=== PATIENT | female | born 1950 | race African-American/Black ===

== ENCOUNTER 2017-03-14 09:21 | Inpatient (IN) | payer MEDICARE, OTHER ==
[~2017-03-14] VITALS: Ht 162.6 cm; Wt 78.9 kg
[~2017-03-14 09:21] MED LIST: BENA5TAB2 PO; ONDA4TAB8 SL
[2017-03-14] MEDS ORDERED: LABETALOL HCL 100 MG/20 ML VIAL IV ONE ×3 (09:45→11:45)
[2017-03-14] MEDS ORDERED: ONDANSETRON 4 MG/2 ML VIAL IV ONE ×2 (09:45→10:45)
[2017-03-14] MEDS ORDERED: IV NORMAL SALINE 1000 ML BAG IV ONE (09:45)
[2017-03-14] MEDS ORDERED: LABETALOL 20 MG/4 ML VIAL IV ONE ×3 (09:49→11:45)
[2017-03-14] MEDS ORDERED: ONDANSETRON 4 MG/2 ML VIAL ONE ×2 (09:50→10:42)
[2017-03-14] MEDS ORDERED: hydrALAZINE HCL 20 MG/1 ML VIAL IV ONE ×2 (10:00→10:45)
[2017-03-14 10:07] LABS: BASOPHILS # (AUTO) 0.1 K/uL (0.0-8.0); BASOPHILS % (AUTO) 0.7 % (0.0-2.0); EOSINOPHILS # (AUTO) 0.1 K/uL (0.0-0.7); HEMATOCRIT 49.4 % (37-47); HEMOGLOBIN 16.9 G/DL (12.0-16.0); LYMPHOCYTES # (AUTO) 0.5 K/UL (0.8-4.8); LYMPHOCYTES % (AUTO) 3.3 % (20.5-51.5); MEAN CORPUSCULAR HEMOGLOBIN 31.4 UUG (27.0-31.0); MEAN CORPUSCULAR HGB CONC 34 g/dL (32.0-37.0); MEAN CORPUSCULAR VOLUME 91.9 FL (81.0-99.0); MONOCYTES # (AUTO) 0.1 K/UL (0.1-1.30); MONOCYTES % (AUTO) 0.7 % (0.0-11.0); NEUTROPHILS # (AUTO) 13.8 K/UL (1.8-8.9); NEUTROPHILS % (AUTO) 94.3 % (38.5-71.5); PLATELET COUNT (AUTO) 158 K/UL (150-450); RED BLOOD CELL COUNT(AUTO) 5.38 MIL/UL (4.2-5.4); RED CELL DISTRIBUTION WIDTH 14.3 % (11.5-14.5); WHITE BLOOD COUNT (AUTO) 14.6 K/UL (4.0-11.2)
[2017-03-14] MEDS ORDERED: hydrALAZINE HCL 20 MG/1 ML VIAL ONE ×2 (10:07→10:31)
[2017-03-14 10:13] LABS: CALCIUM 9.6 mg/dL (8.5-10.1); POTASSIUM 3.3 mmol/L (3.5-5.1)
[2017-03-14 10:25] LABS: ALBUMIN 4.7 g/dL (3.4-5.0); BILIRUBIN,DIRECT 0.1 mg/dL (0.0-0.2); BILIRUBIN,TOTAL 0.7 mg/dL (0.2-1.0); TOTAL PROTEIN, SERUM 8.7 g/dL (6.4-8.2)
[2017-03-14] MEDS ORDERED: NORMAL SALINE FLUSH 10 ML DISP.SYRIN ONE (10:56)
[2017-03-14] MEDS ORDERED: IV NORMAL SALINE 250 ML IV ONE (10:57)
[2017-03-14] MEDS ORDERED: IOHEXOL 350 100 ML INFUS..BTL ONE (10:57)
[2017-03-14] MEDS ORDERED: METOCLOPRAMIDE HCL 10 MG/2 ML VIAL IV ONE (11:00)
[2017-03-14] MEDS ORDERED: diphenhydrAMINE 50 MG/1 ML VIAL IV ONE (11:00)
[2017-03-14] MEDS ORDERED: diphenhydrAMINE 50 MG/1 ML VIAL ONE (11:00)
[2017-03-14] MEDS ORDERED: METOCLOPRAMIDE HCL 10 MG/2 ML VIAL ONE (11:00)
[2017-03-14 11:06] LABS: LYMPHOCYTES % (MANUAL) 3 % (20-40); MONOCYTES % (MANUAL) 2 % (2-10); NEUTROPHILS % (MANUAL) 95 % (42-75)
[2017-03-14 11:29] LABS: PLATELET ESTIMATE ADEQUATE
[2017-03-14 13:32] VITALS: BP 144/93
[2017-03-14] MEDS ORDERED: MORPHINE SULFATE 2 MG/1 ML DISP.SYRIN IV PRN (14:00)
[2017-03-14] MEDS ORDERED: ACETAMINOPHEN 650 MG SUPP.RECT RC PRN (14:00)
[2017-03-14] MEDS: METOPROLOL TARTRATE 25 MG TABLET PO SCH ×2 (14:42→20:53)
[2017-03-14] MEDS: CEFTRIAXONE 1 G in IV DEXTROSE 5% 50 ML IV SCH (14:43)
[2017-03-14 15:37] VITALS: BP 150/97
[2017-03-14 17:34] LABS: *BILIRUBIN,URIN NEGATIVE (NEGATIVE); *BLOOD, URINE Trace-lysed (NEGATIVE); *COLOR,URINE YELLOW (YELLOW); *KETONES,URINE TRACE (NEGATIVE); *PROTEIN,URINE 2+ (NEGATIVE); *UROBILINOGEN,URINE 0.2 E.U./dl (NORMAL); LEUKOCYTE ESTERASE ,URINE NEGATIVE (NEGATIVE); NITRITE, URINE NEGATIVE (NEGATIVE); UGLUCOSE NEGATIVE (NEGATIVE)
[2017-03-14 17:48] LABS: *CLARITY,URINE HAZY (CLEAR)
[2017-03-14 17:50] LABS: BACTERIA,URINE FEW /HPF (NONE SEEN); MUCUS,URINE FEW /LPF (0-FEW); SQUAMOUS EPITHELIAL CELL,UR MANY /HPF (NONE SEEN); WBC,URINE 0-3 /HPF (0-3)
[2017-03-14 19:00] VITALS: BP 148/92
[2017-03-14] MEDS: ZOLPIDEM 5 MG TABLET PO PRN (23:23)
[2017-03-14] MEDS ORDERED: ZOLPIDEM 5 MG TABLET ONE (23:32)
[2017-03-15] VITALS (8 sets, daily range): BP systolic 146–173; BP diastolic 88–104
[2017-03-15] MEDS: POTASSIUM CHLORIDE 20 MEQ in IV 1/2NS 1000 ML 1,000 ML IV PRN ×2 (01:48→21:15)
[2017-03-15] MEDS: ONDANSETRON 4 MG/2 ML VIAL IV PRN ×2 (03:22→23:23)
[2017-03-15] MEDS: LISINOPRIL 20 MG TABLET PO SCH ×2 (05:43→08:03)
[2017-03-15] MEDS ORDERED: LISINOPRIL 20 MG TABLET ONE (05:53)
[2017-03-15 06:55] LABS: ALBUMIN 3.8 g/dL (3.4-5.0); BILIRUBIN,TOTAL 0.6 mg/dL (0.2-1.0); CALCIUM 8.7 mg/dL (8.5-10.1); MAGNESIUM 2.1 mg/dL (1.8-2.4); PHOSPHOROUS 2.6 mg/dL (2.5-4.9); POTASSIUM 3.3 mmol/L (3.5-5.1); THYROID STIMULATING HORMONE 0.923 mIU/mL (0.358-3.740); TOTAL PROTEIN, SERUM 7.3 g/dL (6.4-8.2)
[2017-03-15 07:07] LABS: BASOPHILS % (AUTO) 0.1 % (0.0-2.0); EOSINOPHILS % (AUTO) 0.2 % (0.0-7.0); HEMATOCRIT 46.3 % (37-47); HEMOGLOBIN 15.8 G/DL (12.0-16.0); LYMPHOCYTES # (AUTO) 0.9 K/UL (0.8-4.8); LYMPHOCYTES % (AUTO) 6.9 % (20.5-51.5); MEAN CORPUSCULAR HEMOGLOBIN 31.4 UUG (27.0-31.0); MEAN CORPUSCULAR HGB CONC 34 g/dL (32.0-37.0); MONOCYTES # (AUTO) 0.6 K/UL (0.1-1.30); MONOCYTES % (AUTO) 4.4 % (0.0-11.0); NEUTROPHILS % (AUTO) 88.4 % (38.5-71.5); PLATELET COUNT (AUTO) 144 K/UL (150-450); RED BLOOD CELL COUNT(AUTO) 5.03 MIL/UL (4.2-5.4); RED CELL DISTRIBUTION WIDTH 14.8 % (11.5-14.5); WHITE BLOOD COUNT (AUTO) 13.5 K/UL (4.0-11.2)
[2017-03-15] MEDS: PANTOPRAZOLE SODIUM 40 MG VIAL IV SCH (07:33)
[2017-03-15] MEDS: METOPROLOL TARTRATE 25 MG TABLET PO SCH (08:02)
[2017-03-15] MEDS: AMLODIPINE 5 MG TABLET PO SCH ×2 (10:32→20:25)
[2017-03-15] MEDS: CEFTRIAXONE 1 G in IV DEXTROSE 5% 50 ML IV SCH (13:25)
[2017-03-15] MEDS: hydrALAZINE HCL 25 MG TABLET PO PRN (15:18)
[2017-03-15] MEDS: CARVEDILOL 6.25 MG TABLET PO SCH (17:13)
[2017-03-15] MEDS: ACETAMINOPHEN 325 MG TABLET PO PRN (20:22)
[2017-03-15] MEDS: ZOLPIDEM 5 MG TABLET PO PRN (20:24)
[2017-03-16] MEDS: ONDANSETRON 4 MG/2 ML VIAL IV PRN ×2 (04:29→13:51)
[2017-03-16 05:00] VITALS: BP 161/99
[2017-03-16] MEDS: hydrALAZINE HCL 25 MG TABLET PO PRN ×2 (05:13→15:04)
[2017-03-16] MEDS: PANTOPRAZOLE SODIUM 40 MG VIAL IV SCH (06:15)
[2017-03-16 06:56] LABS: CALCIUM 8.5 mg/dL (8.5-10.1); CREATININE 0.9 mg/dL (0.6-1.3); MAGNESIUM 1.9 mg/dL (1.8-2.4); PHOSPHOROUS 1.9 mg/dL (2.5-4.9); POTASSIUM 3.1 mmol/L (3.5-5.1)
[2017-03-16 07:22] LABS: BASOPHILS % (AUTO) 0.2 % (0.0-2.0); EOSINOPHILS # (AUTO) 0.1 K/uL (0.0-0.7); EOSINOPHILS % (AUTO) 0.6 % (0.0-7.0); HEMATOCRIT 46.3 % (37-47); HEMOGLOBIN 15.8 G/DL (12.0-16.0); LYMPHOCYTES # (AUTO) 1.2 K/UL (0.8-4.8); LYMPHOCYTES % (AUTO) 11.1 % (20.5-51.5); MEAN CORPUSCULAR HEMOGLOBIN 31.5 UUG (27.0-31.0); MEAN CORPUSCULAR HGB CONC 34 g/dL (32.0-37.0); MEAN CORPUSCULAR VOLUME 92.4 FL (81.0-99.0); MONOCYTES # (AUTO) 0.6 K/UL (0.1-1.30); MONOCYTES % (AUTO) 5.4 % (0.0-11.0); NEUTROPHILS # (AUTO) 8.9 K/UL (1.8-8.9); NEUTROPHILS % (AUTO) 82.7 % (38.5-71.5); PLATELET COUNT (AUTO) 146 K/UL (150-450); RED BLOOD CELL COUNT(AUTO) 5.01 MIL/UL (4.2-5.4); RED CELL DISTRIBUTION WIDTH 14.4 % (11.5-14.5); WHITE BLOOD COUNT (AUTO) 10.8 K/UL (4.0-11.2)
[2017-03-16] MEDS: CARVEDILOL 6.25 MG TABLET PO SCH ×2 (07:54→17:08)
[2017-03-16] MEDS: AMLODIPINE 5 MG TABLET PO SCH ×2 (08:02→21:19)
[2017-03-16] MEDS: LISINOPRIL 20 MG TABLET PO SCH (08:02)
[2017-03-16] MEDS: ACETAMINOPHEN 325 MG TABLET PO PRN (09:36)
[2017-03-16 11:12] VITALS: BP 135/75
[2017-03-16] MEDS: POTASSIUM CHLORIDE 20 MEQ in IV 1/2NS 1000 ML 1,000 ML IV PRN (11:59)
[2017-03-16] MEDS: CEFTRIAXONE 1 G in IV DEXTROSE 5% 50 ML IV SCH (13:44)
[2017-03-16 14:55] VITALS: BP 166/103
[2017-03-16] MEDS ORDERED: NEUTRA PHOS PACKET PO ONE (15:15)
[2017-03-16 15:30] VITALS: BP 165/103
[2017-03-16] MEDS ORDERED: CLONIDINE-TTS 1 PATCH TD SCH (16:00)
[2017-03-16] MEDS: POTASSIUM PHOSPHATE MM 7.5 MMOL in IV DEXTROSE 5% 100 ML IV SCH ×2 (16:44→20:04)
[2017-03-16 20:00] VITALS: BP 139/86
[2017-03-16] MEDS: ZOLPIDEM 5 MG TABLET PO PRN (21:21)
[2017-03-17 04:00] VITALS: BP 108/72
[2017-03-17] MEDS: PANTOPRAZOLE SODIUM 40 MG VIAL IV SCH (06:20)
[2017-03-17] MEDS: POTASSIUM CHLORIDE 20 MEQ in IV 1/2NS 1000 ML 1,000 ML IV PRN (06:20)
[2017-03-17 06:40] LABS: CALCIUM 8.4 mg/dL (8.5-10.1); CREATININE 1.2 mg/dL (0.6-1.3); MAGNESIUM 1.9 mg/dL (1.8-2.4); PHOSPHOROUS 4.2 mg/dL (2.5-4.9); POTASSIUM 3.5 mmol/L (3.5-5.1)
[2017-03-17 06:55] LABS: BASOPHILS % (AUTO) 0.2 % (0.0-2.0); EOSINOPHILS % (AUTO) 0.3 % (0.0-7.0); HEMATOCRIT 44.6 % (37-47); HEMOGLOBIN 14.7 G/DL (12.0-16.0); LYMPHOCYTES # (AUTO) 1.5 K/UL (0.8-4.8); LYMPHOCYTES % (AUTO) 18.7 % (20.5-51.5); MEAN CORPUSCULAR HEMOGLOBIN 30.1 UUG (27.0-31.0); MEAN CORPUSCULAR HGB CONC 33 g/dL (32.0-37.0); MEAN CORPUSCULAR VOLUME 91.3 FL (81.0-99.0); MONOCYTES # (AUTO) 0.6 K/UL (0.1-1.30); NEUTROPHILS % (AUTO) 72.8 % (38.5-71.5); PLATELET COUNT (AUTO) 121 K/UL (150-450); RED BLOOD CELL COUNT(AUTO) 4.88 MIL/UL (4.2-5.4); RED CELL DISTRIBUTION WIDTH 14.1 % (11.5-14.5); WHITE BLOOD COUNT (AUTO) 8.1 K/UL (4.0-11.2)
[2017-03-17] MEDS ORDERED: CARVEDILOL 6.25 MG TABLET PO SCH (08:00)
[2017-03-17] MEDS: CARVEDILOL 12.5 MG TABLET PO SCH ×2 (08:00→17:00)
[2017-03-17] MEDS: AMLODIPINE 5 MG TABLET PO SCH (08:27)
[2017-03-17] MEDS: LISINOPRIL 20 MG TABLET PO SCH (08:27)
[2017-03-17 12:09] VITALS: BP 114/66
[2017-03-17] MEDS: CEFTRIAXONE 1 G in IV DEXTROSE 5% 50 ML IV SCH (13:26)
[2017-03-17 16:12] VITALS: BP 91/61
[2017-03-17] MEDS ORDERED: ACIDOPHILUS/BULGARICUS CHEW TAB PO SCH (16:45)
[2017-03-17 17:00] VITALS: BP 91/61
[2017-03-17] MEDS ORDERED: LISI-603 PO (17:10)
[2017-03-17] MEDS ORDERED: PANT40TA2 PO (17:10)
[2017-03-17] MEDS ORDERED: Acetaminophen PO (17:10)
[2017-03-17] MEDS ORDERED: ACID1TAB4 PO (17:10)
[2017-03-18] MEDS ORDERED: PANTOPRAZOLE SODIUM 40 MG TABLET.DR PO SCH (07:00)
== END 2017-03-17 18:59 | disposition home or self-care (01) | DRG 392 ==
LOC: ER 09:22 → TELE 12:46 → MED 03-15 11:02
PROVIDERS: ADMIT Internal Medicine; ATTEND Internal Medicine
DX: A08.4 Viral intestinal infection, unspecified (principal); I16.0 Hypertensive urgency; E78.5 Hyperlipidemia, unspecified; E66.9 Obesity, unspecified; Z68.29 Body mass index [BMI] 29.0-29.9, adult; Z82.49 Family history of ischemic heart disease and other diseases of the circulatory system; E87.6 Hypokalemia; K57.30 Diverticulosis of large intestine without perforation or abscess without bleeding; K76.89 Other specified diseases of liver; N20.0 Calculus of kidney; D25.9 Leiomyoma of uterus, unspecified; R73.9 Hyperglycemia, unspecified
CPT/HCPCS: 36415; 70030-TC; 71010; 83690; 83735; 84100; 84443; 85025; 85730; 87086; 93005; A4663; C9113; J0360; J0696; J1200; J2405; J2765; J3480; J3490; J7040; J7050; J7060; Q9967

== ENCOUNTER 2017-07-07 14:48 | Inpatient (IN) | payer MEDICARE ==
[~2017-07-07] VITALS: Ht 162.6 cm; Wt 80.7 kg
[~2017-07-07 14:48] MED LIST changes: +ACID1TAB4 PO; +Acetaminophen PO; -BENA5TAB2 PO; +LISI-603 PO; +PANT40TA2 PO
[2017-07-07] MEDS ORDERED: METO10TA3 PO (15:15)
[2017-07-07] MEDS ORDERED: NAPROXEN 500 MG PO (15:15)
[2017-07-07] MEDS ORDERED: TRAMADOL HCL TAB 50MG PO (15:15)
[2017-07-07] MEDS ORDERED: AMLODIPINE TAB 5MG PO (15:15)
[2017-07-07] MEDS ORDERED: LABETALOL HCL 100 MG/20 ML VIAL IV ONE ×3 (15:30→19:30)
[2017-07-07] MEDS ORDERED: ONDANSETRON 4 MG/2 ML VIAL IV ONE (15:30)
[2017-07-07] MEDS ORDERED: ONDANSETRON 4 MG/2 ML VIAL ONE ×3 (15:44→19:53)
[2017-07-07] MEDS ORDERED: LABETALOL HCL 100 MG/20 ML VIAL ONE (15:44)
[2017-07-07] MEDS ORDERED: PANTOPRAZOLE SODIUM 40 MG VIAL IV ONE (15:45)
[2017-07-07] MEDS ORDERED: PANTOPRAZOLE SODIUM 40 MG VIAL ONE (15:52)
[2017-07-07 16:00] LABS: BASOPHILS % (AUTO) 0.1 % (0.0-2.0); EOSINOPHILS % (AUTO) 0.1 % (0.0-7.0); HEMATOCRIT 49.3 % (37-47); LYMPHOCYTES # (AUTO) 0.4 K/UL (0.8-4.8); LYMPHOCYTES % (AUTO) 2.3 % (20.5-51.5); MEAN CORPUSCULAR HEMOGLOBIN 30.6 UUG (27.0-31.0); MEAN CORPUSCULAR HGB CONC 32 g/dL (32.0-37.0); MEAN CORPUSCULAR VOLUME 94.5 FL (81.0-99.0); MONOCYTES # (AUTO) 0.1 K/UL (0.1-1.30); MONOCYTES % (AUTO) 0.8 % (0.0-11.0); NEUTROPHILS # (AUTO) 16.1 K/UL (1.8-8.9); NEUTROPHILS % (AUTO) 96.7 % (38.5-71.5); PLATELET COUNT (AUTO) 187 K/UL (150-450); RED BLOOD CELL COUNT(AUTO) 5.21 MIL/UL (4.2-5.4); WHITE BLOOD COUNT (AUTO) 16.6 K/UL (4.0-11.2)
[2017-07-07] MEDS ORDERED: METOCLOPRAMIDE HCL 10 MG/2 ML VIAL IV ONE (16:00)
[2017-07-07] MEDS ORDERED: diphenhydrAMINE 50 MG/1 ML VIAL IV ONE (16:00)
[2017-07-07 16:01] LABS: POTASSIUM 3.1 mmol/L (3.5-5.1)
[2017-07-07 16:14] LABS: BILIRUBIN,DIRECT 0.1 mg/dL (0.0-0.2); BILIRUBIN,TOTAL 0.5 mg/dL (0.2-1.0); TOTAL PROTEIN, SERUM 8.8 g/dL (6.4-8.2)
[2017-07-07] MEDS ORDERED: hydrALAZINE HCL 20 MG/1 ML VIAL IV ONE ×2 (16:15→16:30)
[2017-07-07] MEDS ORDERED: NITROGLYCERIN OINT 1 GM PACKET TP ONE ×2 (16:15→16:32)
[2017-07-07] MEDS ORDERED: hydrALAZINE HCL 20 MG/1 ML VIAL ONE ×2 (16:21→16:36)
[2017-07-07] MEDS ORDERED: MORPHINE SULFATE 4 MG/1 ML DISP.SYRIN IV ONE (16:45)
[2017-07-07] MEDS ORDERED: MORPHINE SULFATE 4 MG/1 ML DISP.SYRIN ONE (16:54)
[2017-07-07] MEDS ORDERED: IV 1/2NS 1000 ML 1,000 ML IV PRN (18:21)
[2017-07-07] MEDS ORDERED: hydrALAZINE HCL 20 MG/1 ML VIAL IV PRN (18:30)
[2017-07-07] MEDS ORDERED: ONDANSETRON 4 MG/2 ML VIAL IV PRN (18:30)
[2017-07-07] MEDS ORDERED: HYDROCODONE/APAP 5-325MG TABLET PO PRN (18:30)
[2017-07-07] MEDS ORDERED: MAGNESIUM HYDROXIDE 30 ML LIQUID UDC PO PRN (18:30)
[2017-07-07] MEDS ORDERED: ENOXAPARIN SODIUM 40 MG/0.4 ML DISP.SYRIN SQ SCH (18:30)
[2017-07-07] MEDS ORDERED: ACETAMINOPHEN 325 MG TABLET PO PRN (18:30)
[2017-07-07] MEDS ORDERED: Z GUARD REMEDY PASTE 57 GM TUBE TOP PRN (18:30)
[2017-07-07] MEDS ORDERED: IOHEXOL 300MG/ML 100 ML INFUS..BTL ONE (18:32)
[2017-07-07] MEDS ORDERED: NORMAL SALINE FLUSH 10 ML DISP.SYRIN ONE (18:32)
[2017-07-07] MEDS ORDERED: IV NORMAL SALINE 250 ML IV ONE (18:32)
--- NOTE | 2017-07-07 18:36 | NUR ---
dr. aldo jimenez accepted the pt. transfer to floor pending on ct result
--- NOTE | 2017-07-07 19:20 | NUR ---
Received report, assumed care of pt at this time. Admission pending CT results. MD notified of pt's blood pressure, awaiting further orders.
[2017-07-07] MEDS ORDERED: HYDROMORPHONE 1 MG/1 ML DISP.SYRIN IV ONE (19:30)
[2017-07-07] MEDS ORDERED: ONDANSETRON IV *ER 4 MG/2 ML VIAL IV ONE (19:30)
--- NOTE | 2017-07-07 19:45 | NUR ---
Blood pressure improved after pain medication, labetalol held at this time
[2017-07-07] MEDS ORDERED: HYDROMORPHONE 2 MG/1 ML DISP.SYRIN ONE (19:52)
--- NOTE | 2017-07-07 20:12 | NUR ---
Pt downgraded from MEMO to tele admission
--- NOTE | 2017-07-07 20:19 | NUR ---
Report called to SOLO Diaz. Preparing to transfer pt to the floor.
[2017-07-07] MEDS ORDERED: POTASSIUM CHLORIDE 20 MEQ TAB.PRT.SR PO ONE (20:30)
[2017-07-07] MEDS ORDERED: POTASSIUM CHLORIDE 20 MEQ TAB.PRT.SR ONE (20:49)
--- NOTE | 2017-07-07 20:57 | NUR ---
ADMITTED PT FROM ER VIA GURNEY, ALERT & ORIENTED X3. DENIES PAIN THIS TIME. NO NAUSEA/VOMITTING NOTED. HEP LOCK INTACT & PATENT ON RAC. C-SCOPE SR NO ECTOPY. NOT IN ANY DISTRESS.
[2017-07-07 21:00] VITALS: BP 105/61
[2017-07-07] MEDS ORDERED: ENOXAPARIN SODIUM 40 MG/0.4 ML DISP.SYRIN SQ ONE (21:58)
--- NOTE | 2017-07-08 | NUR ---
BP STABLE. DENIES PAIN . NOT IN ANY DISTRESS.
[2017-07-08 00:15] VITALS: BP 109/68
[2017-07-08 01:33] LABS: BASOPHILS % (AUTO) 0.1 % (0.0-2.0); EOSINOPHILS % (AUTO) 0.2 % (0.0-7.0); HEMATOCRIT 41.4 % (37-47); HEMOGLOBIN 13.8 G/DL (12.0-16.0); LYMPHOCYTES # (AUTO) 0.7 K/UL (0.8-4.8); LYMPHOCYTES % (AUTO) 5.5 % (20.5-51.5); MEAN CORPUSCULAR HEMOGLOBIN 31.3 UUG (27.0-31.0); MEAN CORPUSCULAR HGB CONC 33 g/dL (32.0-37.0); MEAN CORPUSCULAR VOLUME 93.7 FL (81.0-99.0); MONOCYTES # (AUTO) 0.5 K/UL (0.1-1.30); MONOCYTES % (AUTO) 4.3 % (0.0-11.0); NEUTROPHILS # (AUTO) 11.2 K/UL (1.8-8.9); NEUTROPHILS % (AUTO) 89.9 % (38.5-71.5); PLATELET COUNT (AUTO) 176 K/UL (150-450); RED BLOOD CELL COUNT(AUTO) 4.42 MIL/UL (4.2-5.4); WHITE BLOOD COUNT (AUTO) 12.4 K/UL (4.0-11.2)
[2017-07-08 02:19] LABS: CREATININE 1.3 mg/dL (0.6-1.3); MAGNESIUM 1.7 mg/dL (1.8-2.4); PHOSPHOROUS 3.4 mg/dL (2.5-4.9); POTASSIUM 3.9 mmol/L (3.5-5.1)
[2017-07-08 02:21] LABS: THYROID STIMULATING HORMONE 0.706 mIU/mL (0.358-3.740)
[2017-07-08 04:00] VITALS: BP 122/72
--- NOTE | 2017-07-08 05:13 | NUR ---
RESTING QUITELY. IV INFUSING WELL.. BP REMAINS STABLE.
[2017-07-08] MEDS ORDERED: PANTOPRAZOLE SODIUM 40 MG TABLET.DR PO SCH (07:00)
--- NOTE | 2017-07-08 08:00 | NUR ---
RECEIVED PATIENT AWAKE ALERT AND ORIENTED DENIES PAIN OR DISCOMFORTS AT THIS TIME.REMAIN ON CLEAR LIQUIDS DIET ORDERED WITH NO NAUSEA OR VOMITING AT THIS TIME.IVF IN PROGRESS ORDERED NOT IN DISTRESS AT THIS TIME.
[2017-07-08] MEDS: CLONIDINE HCL 0.2 MG TABLET PO SCH ×2 (08:25→14:00)
--- NOTE | 2017-07-08 09:50 | NUR ---
PATIENT SEEN AND EXAMINED BY DR SIMPSON WITH ORDER TO ADVANCE DIET TOLERATED.
[2017-07-08] MEDS ORDERED: CLON0.1T PO (10:59)
--- NOTE | 2017-07-08 11:01 | NUR ---
PATIENT SEEN AND EXAMINED BY DR SIMPSON WITH ORDER TO DISCHARGE PATIENT HOME TODAY AND TO FOLLOW UP WITH HER PRIMARY DOCTOR FOR EVALUATION OF HER BLOOD PRESSURE MEDICATIONS.PATIENT AWARE.
[2017-07-08 11:29] VITALS: BP 96/52
[2017-07-08] MEDS ORDERED: MAGNESIUM OXIDE 400 MG TABLET PO ONE (11:30)
[2017-07-08 14:00] VITALS: BP 100/59
--- NOTE | 2017-07-08 15:10 | NUR ---
PATIENT DISCHARGED PICKED UP BY HER SON MARCUS IN SATISFACTORY CONDITION WITH DISCHARGE INSTRUCTIONS AND PRESCRIPTIONS AND PATIENT INSTRUCTED TO CHECK HER BLOOD PRESSURE BEFORE TAKING HER BLOOD PRESSURE MEDICATIONS AND TO NOT TAKE IS SYSTOLIC IS LESS THAN 110 THEN NOTIFY HER DOCTOR.ALSO TO CALL FOR A FOLLOW UP APPOINTMENT WITH HER PRIMARY DOCTOR FOR BETTER REGULATION AND MANAGEMENT OF HER BLOOD PRESSURE MEDICATIONS AND TO RISE SLOWLY TO PREVENT DIZZINESS AND SHE EXPRESSED UNDERSTANDING.
[2017-07-08] MEDS ORDERED: ENOXAPARIN SODIUM 40 MG/0.4 ML DISP.SYRIN SQ SCH (21:00)
== END 2017-07-08 15:10 | disposition home or self-care (01) | DRG 305 ==
LOC: ER 14:48 → TELE 20:13
DX: I10 Essential (primary) hypertension (principal); K76.89 Other specified diseases of liver; E87.6 Hypokalemia; D72.829 Elevated white blood cell count, unspecified; K29.70 Gastritis, unspecified, without bleeding; N20.0 Calculus of kidney; D25.9 Leiomyoma of uterus, unspecified
CPT/HCPCS: 36415; 70030-TC; 71010; 83690; 83735; 84100; 84443; 85025; 85730; 93005; A4663; C9113; J0360; J1170; J1650; J2270; J2405; J3490; J7030; J7050; Q9967

== ENCOUNTER 2017-09-29 06:18 | Emergency (ER) | payer MEDICARE ==
[~2017-09-29] VITALS: Ht 160 cm; Wt 72.6 kg
[~2017-09-29 06:18] MED LIST changes: -ACID1TAB4 PO; +AMLODIPINE TAB 5MG PO; -Acetaminophen PO; +CLON0.1T PO; -LISI-603 PO; -ONDA4TAB8 SL; -PANT40TA2 PO
[2017-09-29 06:43] LABS: BASOPHILS % (AUTO) 0.1 % (0.0-2.0); EOSINOPHILS % (AUTO) 0.1 % (0.0-7.0); HEMOGLOBIN 15.5 G/DL (12.0-16.0); LYMPHOCYTES # (AUTO) 0.6 K/UL (0.8-4.8); LYMPHOCYTES % (AUTO) 6.4 % (20.5-51.5); MEAN CORPUSCULAR HEMOGLOBIN 30.5 UUG (27.0-31.0); MEAN CORPUSCULAR HGB CONC 33 g/dL (32.0-37.0); MEAN CORPUSCULAR VOLUME 92.4 FL (81.0-99.0); MONOCYTES # (AUTO) 0.1 K/UL (0.1-1.30); MONOCYTES % (AUTO) 1.1 % (0.0-11.0); NEUTROPHILS # (AUTO) 9.3 K/UL (1.8-8.9); NEUTROPHILS % (AUTO) 92.3 % (38.5-71.5); PLATELET COUNT (AUTO) 183 K/UL (150-450); RED BLOOD CELL COUNT(AUTO) 5.08 MIL/UL (4.2-5.4)
[2017-09-29] MEDS ORDERED: HYDROMORPHONE 1 MG/1 ML DISP.SYRIN IV ONE (06:45)
[2017-09-29] MEDS ORDERED: IV NORMAL SALINE 1000 ML BAG IV ONE ×2 (06:45)
[2017-09-29] MEDS ORDERED: ONDANSETRON 4 MG/2 ML VIAL IV ONE (06:45)
[2017-09-29] MEDS ORDERED: ONDANSETRON 4 MG/2 ML VIAL ONE (06:46)
[2017-09-29] MEDS ORDERED: AMLO10TA2 PO (06:50)
[2017-09-29] MEDS ORDERED: AMOX500T2 PO (06:50)
[2017-09-29] MEDS ORDERED: HYDROMORPHONE 2 MG/1 ML DISP.SYRIN ONE (06:52)
[2017-09-29 07:01] LABS: BILIRUBIN,DIRECT 0.1 mg/dL (0.0-0.2); BILIRUBIN,TOTAL 0.4 mg/dL (0.2-1.0); CREATININE 0.9 mg/dL (0.6-1.3); TOTAL PROTEIN, SERUM 7.8 g/dL (6.4-8.2)
[2017-09-29 07:04] LABS: POTASSIUM 2.7 mmol/L (3.5-5.1)
[2017-09-29] MEDS ORDERED: POTASSIUM CHLORIDE 20 MEQ TAB.PRT.SR PO ONE (07:15)
[2017-09-29] MEDS ORDERED: POTASSIUM CHLORIDE 20 MEQ TAB.PRT.SR ONE (07:22)
--- NOTE | 2017-09-29 08:20 | NUR ---
Discharge per Dr Holt. "no need for urine." per
--- NOTE | 2017-09-29 08:22 | NUR ---
Patient is AOX4, denies any discomfort, IV fluids are done, pending ride for home at this time. Per patient, "My son will come pick me up." Patient discharged to home in stable conditon. Written and verbal after care instructions given to patient. Patient verbalizes understanding of instructions. IV removed. Catheter intact and site benign. Pressure and 4x4 gauze applied to site. No bleeding noted.
== END 2017-09-29 08:55 | disposition home or self-care (01) ==
LOC: ER 06:26
DX: A08.4 Viral intestinal infection, unspecified (principal); E87.6 Hypokalemia; I10 Essential (primary) hypertension; I70.0 Atherosclerosis of aorta; Z90.49 Acquired absence of other specified parts of digestive tract
CPT/HCPCS: 71010; 80048; 80076; 83690; 84484; 85025; 85730; 93005; 96361; 96374; 96375; 99285; A4663; J1170; J2405; J7030 ×2; 70030-TC

== ENCOUNTER 2017-10-17 13:17 | Emergency (ER) | payer MEDICARE ==
[~2017-10-17] VITALS: Ht 160 cm; Wt 73.9 kg
[~2017-10-17 13:17] MED LIST changes: +AMLO10TA2 PO; -AMLODIPINE TAB 5MG PO; +AMOX500T2 PO; -CLON0.1T PO
[2017-10-17] MEDS: IV NORMAL SALINE 1000 ML BAG IV ONE (13:37)
[2017-10-17] MEDS: ONDANSETRON 4 MG/2 ML VIAL IV ONE ×3 (13:37→17:21)
[2017-10-17] MEDS ORDERED: ONDANSETRON 4 MG/2 ML VIAL ONE ×3 (13:41→17:34)
[2017-10-17 13:42] LABS: BASOPHILS % (AUTO) 0.2 % (0.0-2.0); EOSINOPHILS % (AUTO) 0.1 % (0.0-7.0); HEMATOCRIT 46.2 % (31.2-41.9); HEMOGLOBIN 15.5 g/dL (10.9-14.3); LYMPHOCYTES # (AUTO) 0.4 K/uL (20.0-40.0); LYMPHOCYTES % (AUTO) 2.4 % (20.5-51.5); MEAN CORPUSCULAR HEMOGLOBIN 31.4 uug (24.7-32.8); MEAN CORPUSCULAR HGB CONC 34 g/dL (32.3-35.6); MEAN CORPUSCULAR VOLUME 93.5 fL (75.5-95.3); MONOCYTES # (AUTO) 0.3 K/uL (2.0-10.0); MONOCYTES % (AUTO) 2.2 % (0.0-11.0); NEUTROPHILS # (AUTO) 15.1 K/uL (1.8-8.9); NEUTROPHILS % (AUTO) 95.1 % (38.5-71.5); PLATELET COUNT (AUTO) 193 K/uL (179-408); RED BLOOD CELL COUNT(AUTO) 4.94 MIL/uL (3.63-4.92); WHITE BLOOD COUNT (AUTO) 15.8 K/uL (3.8-11.8)
--- NOTE | 2017-10-17 13:44 | NUR ---
Pt presents to ED with a c/o elevated blood pressure today. Pt denies YEBOAH. denies blurred vision. No neuro deficit noted. pt also states that she had several vomiting episodes.
[2017-10-17 13:52] LABS: CREATININE 1.1 mg/dL (0.6-1.3); POTASSIUM 3.3 mmol/L (3.5-5.1)
[2017-10-17 13:57] LABS: BILIRUBIN,DIRECT 0.1 mg/dL (0.0-0.2); BILIRUBIN,TOTAL 0.6 mg/dL (0.2-1.0); TOTAL PROTEIN, SERUM 8.2 g/dL (6.4-8.2)
[2017-10-17] MEDS: MORPHINE SULFATE 4 MG/1 ML DISP.SYRIN IV ONE (14:08)
--- NOTE | 2017-10-17 14:09 | NUR ---
Pt with a c/o diffuse abd pain. medicated morphine 6mg IVP as ordered. will continue to monitor.
[2017-10-17] MEDS ORDERED: MORPHINE SULFATE 10 MG/1 ML DISP.SYRIN ONE (14:21)
[2017-10-17] MEDS: MORPHINE SULFATE 2 MG/1 ML DISP.SYRIN IV ONE (15:27)
--- NOTE | 2017-10-17 15:31 | NUR ---
Noted elevated BP. MD made aware. pt denies YEBOAH. denies blurred vision. breathing unlabored and even. medicated with zofran and morphine for n/v as well as diffuse abdominal pain. will continue to monitor.
[2017-10-17] MEDS ORDERED: MORPHINE SULFATE 2 MG/1 ML DISP.SYRIN ONE (15:40)
--- NOTE | 2017-10-17 17:51 | NUR ---
pt with no episode of vomiting at this time s/p zofran. breathing unlabored and even. denies chest pain. able to ambulate with a steady gait. IV dc'd. Site intact. verbalized understanding of discharge instruction.
[2017-10-17 18:14] VITALS: BP 151/102
[2017-10-18] MEDS ORDERED: ONDA4TAB8 PO (18:20)
[2017-10-21] MEDS ORDERED: PANT40TA4 PO (14:34)
[2017-10-21] MEDS ORDERED: CHOL4PAC6 PO (14:34)
== END 2017-10-17 18:16 | disposition home or self-care (01) ==
LOC: ER 13:17
DX: K85.90 Acute pancreatitis without necrosis or infection, unspecified (principal); I10 Essential (primary) hypertension; Z90.49 Acquired absence of other specified parts of digestive tract
CPT/HCPCS: 36415; 83690; 85025; A4663; J2270; J2405; J7030

== ENCOUNTER 2017-10-18 18:14 | Inpatient (IN) | payer MEDICARE ==
[~2017-10-18] VITALS: Ht 160 cm; Wt 72.1 kg
[~2017-10-18 18:14] MED LIST changes: -AMOX500T2 PO
[2017-10-18] MEDS ORDERED: ONDA4TAB8 PO (18:20)
[2017-10-18] MEDS ORDERED: ONDANSETRON 4 MG/2 ML VIAL IV ONE (19:00)
[2017-10-18] MEDS ORDERED: KETOROLAC TROMETHAMINE 15 MG INJ IV ONE (19:00)
[2017-10-18] MEDS ORDERED: KETOROLAC TROMETHAMINE 30 MG INJ ONE (19:16)
[2017-10-18] MEDS ORDERED: ONDANSETRON 4 MG/2 ML VIAL ONE (19:16)
[2017-10-18 19:31] LABS: BASOPHILS % (AUTO) 0.1 % (0.0-2.0); HEMATOCRIT 45.8 % (31.2-41.9); HEMOGLOBIN 15.3 g/dL (10.9-14.3); LYMPHOCYTES # (AUTO) 1.1 K/uL (20.0-40.0); LYMPHOCYTES % (AUTO) 8.5 % (20.5-51.5); MEAN CORPUSCULAR HEMOGLOBIN 31.2 uug (24.7-32.8); MEAN CORPUSCULAR HGB CONC 34 g/dL (32.3-35.6); MEAN CORPUSCULAR VOLUME 93.3 fL (75.5-95.3); MONOCYTES # (AUTO) 0.9 K/uL (2.0-10.0); MONOCYTES % (AUTO) 6.8 % (0.0-11.0); NEUTROPHILS # (AUTO) 11.1 K/uL (1.8-8.9); NEUTROPHILS % (AUTO) 84.6 % (38.5-71.5); PLATELET COUNT (AUTO) 184 K/uL (179-408); RED BLOOD CELL COUNT(AUTO) 4.91 MIL/uL (3.63-4.92); WHITE BLOOD COUNT (AUTO) 13.2 K/uL (3.8-11.8)
[2017-10-18 19:36] LABS: CREATININE 1.9 mg/dL (0.6-1.3); POTASSIUM 3.4 mmol/L (3.5-5.1)
[2017-10-18 19:42] LABS: BILIRUBIN,DIRECT 0.2 mg/dL (0.0-0.2); BILIRUBIN,TOTAL 0.8 mg/dL (0.2-1.0); TOTAL PROTEIN, SERUM 7.7 g/dL (6.4-8.2)
--- NOTE | 2017-10-18 19:46 | NUR ---
Pt back from CT
--- NOTE | 2017-10-18 20:00 | NUR ---
Urine sample obtained and taken to lab. Pt states pain is down to 3/10 and nausea is gone.
[2017-10-18 20:10] LABS: *BLOOD, URINE 1+ (NEGATIVE); *CLARITY,URINE SLIGHTLY CLOUDY (CLEAR); *COLOR,URINE YELLOW (YELLOW); *KETONES,URINE NEGATIVE (NEGATIVE); *PROTEIN,URINE 2+ (NEGATIVE); *UROBILINOGEN,URINE 0.2 E.U./dl (NORMAL); LEUKOCYTE ESTERASE ,URINE NEGATIVE (NEGATIVE); NITRITE, URINE NEGATIVE (NEGATIVE); PH,URINE 5.5 (5.0-8.0); UGLUCOSE NEGATIVE (NEGATIVE)
[2017-10-18 20:23] LABS: *BILIRUBIN,URIN NEGATIVE (NEGATIVE)
[2017-10-18 20:24] LABS: BACTERIA,URINE MODERATE /HPF (NONE SEEN); MUCUS,URINE MANY /LPF (0-FEW); SQUAMOUS EPITHELIAL CELL,UR MANY /HPF (NONE SEEN)
--- NOTE | 2017-10-18 21:38 | NUR ---
Called to give report, nurse TAYLORB
--- NOTE | 2017-10-18 21:55 | NUR ---
Called report to Karin
--- NOTE | 2017-10-18 22:10 | NUR ---
Received patient from ER via gurney. Patient is alert, ambulatory, in no distress. Grandson at bedside. Patient is admitted to med surg under the care of Dr. Librado Lizama. Dx: Abdominal pain/acute renal injury/gastric mass. Belonging list done. New admission process and care plan initiated. Will call MD for new admission orders.
[2017-10-18 22:23] VITALS: BP 145/89
[2017-10-18] MEDS ORDERED: ONDANSETRON ODT 4 MG TAB.RAPDIS SL PRN (23:45)
[2017-10-19] MEDS ORDERED: ONDANSETRON 4 MG/2 ML VIAL IV PRN
[2017-10-19] MEDS ORDERED: MORPHINE SULFATE 2 MG/1 ML DISP.SYRIN IV PRN
[2017-10-19] MEDS ORDERED: ACETAMINOPHEN 325 MG TABLET PO PRN
[2017-10-19] MEDS ORDERED: Z GUARD REMEDY PASTE 57 GM TUBE TOP PRN
[2017-10-19] MEDS: IV D5W-0.45% NS +20 KCL 1,000 ML IV PRN (02:08)
[2017-10-19 04:30] VITALS: BP 112/75
--- NOTE | 2017-10-19 05:00 | NUR ---
Patient noted to have temp 99.2F. Patient is alert, no distress. Cooling measures done. Will reassess and monitor. Addendum: 10/19/17 at 0636 by GEORGIE ONTIVEROS RN Add: fluids offered
--- NOTE | 2017-10-19 06:00 | NUR ---
Patient slept well, in no acute distress. Patient no c/o of discomfort, abdominal pain, chest pain, sob, nausea, vomiting. IVF infusing, no infiltration noted. Call light within reach, will continue to monitor.
[2017-10-19 07:05] LABS: BILIRUBIN,TOTAL 0.8 mg/dL (0.2-1.0); CREATININE 1.8 mg/dL (0.6-1.3); PHOSPHOROUS 3.2 mg/dL (2.5-4.9); POTASSIUM 3.2 mmol/L (3.5-5.1); TOTAL PROTEIN, SERUM 6.8 g/dL (6.4-8.2)
[2017-10-19 07:10] LABS: BASOPHILS % (AUTO) 0.1 % (0.0-2.0); EOSINOPHILS % (AUTO) 0.1 % (0.0-7.0); HEMOGLOBIN 14.3 g/dL (10.9-14.3); LYMPHOCYTES # (AUTO) 0.9 K/uL (20.0-40.0); LYMPHOCYTES % (AUTO) 8.5 % (20.5-51.5); MEAN CORPUSCULAR HEMOGLOBIN 31.9 uug (24.7-32.8); MEAN CORPUSCULAR HGB CONC 34 g/dL (32.3-35.6); MEAN CORPUSCULAR VOLUME 93.6 fL (75.5-95.3); MONOCYTES # (AUTO) 0.8 K/uL (2.0-10.0); MONOCYTES % (AUTO) 7.4 % (0.0-11.0); NEUTROPHILS # (AUTO) 8.7 K/uL (1.8-8.9); NEUTROPHILS % (AUTO) 83.9 % (38.5-71.5); PLATELET COUNT (AUTO) 153 K/uL (179-408); RED BLOOD CELL COUNT(AUTO) 4.49 MIL/uL (3.63-4.92); WHITE BLOOD COUNT (AUTO) 10.3 K/uL (3.8-11.8)
[2017-10-19 08:29] VITALS: BP 111/69
[2017-10-19] MEDS: AMLODIPINE 10 MG TABLET PO SCH (09:33)
[2017-10-19 11:17] VITALS: BP 124/75
--- NOTE | 2017-10-19 13:45 | NUR ---
PT OFF FLOOR FOR EGD
[2017-10-19] MEDS ORDERED: LABETALOL HCL 100 MG/20 ML VIAL ONE (14:38)
[2017-10-19] MEDS ORDERED: ONDANSETRON 4 MG/2 ML VIAL ONE ×2 (14:41→14:49)
[2017-10-19] MEDS ORDERED: hydrALAZINE HCL 20 MG/1 ML VIAL ONE (15:56)
--- NOTE | 2017-10-19 16:27 | NUR ---
PT BACK ON FLOOR FROM EGD, UPON ENTRY TO ROOM PT VERY ANXIOUS AND STATED NEED FOR IMMEDIATE SHOWER, REFUSING VITALS TO BE TAKEN UNTIL AFTER SHOWER. WALKING OUT OF ROOM TO SHOWERS, ACCOMPANIED BY RN. PT SHOWERED AND BACK IN BED
[2017-10-19 16:33] VITALS: BP 129/68
[2017-10-19] MEDS ORDERED: LIDOCAINE HCL 2% 20 ML VIAL MC ONE (17:07)
[2017-10-19] MEDS ORDERED: METOCLOPRAMIDE HCL 10 MG/2 ML VIAL IV ONE (17:07)
[2017-10-19] MEDS ORDERED: PROPOFOL 200 MG/20 ML BOTTLE IV ONE (17:07)
[2017-10-19] MEDS ORDERED: ONDANSETRON 4 MG/2 ML VIAL IV ONE (17:07)
[2017-10-19] MEDS ORDERED: IV NORMAL SALINE 1000 ML BAG IV ONE (17:07)
[2017-10-19] MEDS: SUCRALFATE 1 G TABLET PO SCH ×2 (17:22→21:40)
--- NOTE | 2017-10-19 17:22 | NUR ---
NOTICED PT WAS OFF TELE, WENT TO CHECK PT, PT NOT IN ROOM, ALL BELONGINGS IN ROOM ALONG WITH TELE MONITOR. SECURITY WAS CALLED. PT WAS IN SHOWER AGAIN STATED THE WARM WATER HELP RELAX PT. REINFORCED THE NEED TO CALL FOR NURSE OR RETAIL AND RESTAURANT ASSOCIATE NEXT TIME PT FEELS THE NEED TO SHOWER. PT BACK IN BED, ON TELE IN NO ACUTE DISTRESS
[2017-10-19] MEDS: MORPHINE SULFATE 4 MG/1 ML DISP.SYRIN IV PRN ×2 (17:35→21:40)
[2017-10-19 20:42] VITALS: BP 102/60
--- NOTE | 2017-10-19 21:15 | NUR ---
PT OFF TELE COUPLE TIMES TO GO SHOWER. ADVISED PT TO USE CALL LIGHT FOR ASSISTANCE. PT VERBALIZED UNDERSTANDING BUT STILL LEAVES ROOM UNASSISTED TO GO TO THE SHOWER ROOM. IV SITE INFILTRATED DUE TO WETNESS FROM FREQUENT SHOWERS. WILL CONTINUE TO MONITOR.
[2017-10-19] MEDS: ZOLPIDEM 5 MG TABLET PO PRN (23:57)
--- NOTE | 2017-10-20 | NUR ---
PATIENT EXPRESSED GRATITUDE AND PAIN RELIEF FROM MEDICATION. WILL CONTINUE TO MONITOR.
[2017-10-20 04:00] VITALS: BP 127/79
[2017-10-20] MEDS: IV D5W-0.45% NS +20 KCL 1,000 ML IV PRN ×2 (05:40→20:53)
--- NOTE | 2017-10-20 06:00 | NUR ---
Patient slept well, in no distress, no c/o of pain, nausea/vomiting. after midnight. Patient is on tele sinus rhythm, no c/o of sob, chest pain. VS stable. Temp 99.3F, cooling measures done. Will continue to monitor.
[2017-10-20 06:54] LABS: BASOPHILS % (AUTO) 0.1 % (0.0-2.0); EOSINOPHILS % (AUTO) 0.1 % (0.0-7.0); HEMATOCRIT 42.5 % (31.2-41.9); HEMOGLOBIN 14.1 g/dL (10.9-14.3); LYMPHOCYTES # (AUTO) 1.5 K/uL (20.0-40.0); LYMPHOCYTES % (AUTO) 15.8 % (20.5-51.5); MEAN CORPUSCULAR HEMOGLOBIN 31.2 uug (24.7-32.8); MEAN CORPUSCULAR HGB CONC 33 g/dL (32.3-35.6); MONOCYTES # (AUTO) 0.5 K/uL (2.0-10.0); MONOCYTES % (AUTO) 5.8 % (0.0-11.0); NEUTROPHILS # (AUTO) 7.3 K/uL (1.8-8.9); NEUTROPHILS % (AUTO) 78.2 % (38.5-71.5); PLATELET COUNT (AUTO) 154 K/uL (179-408); RED BLOOD CELL COUNT(AUTO) 4.52 MIL/uL (3.63-4.92); WHITE BLOOD COUNT (AUTO) 9.3 K/uL (3.8-11.8)
[2017-10-20] MEDS: SUCRALFATE 1 G TABLET PO SCH ×4 (06:57→20:11)
[2017-10-20 07:21] LABS: BILIRUBIN,TOTAL 0.9 mg/dL (0.2-1.0); CREATININE 1.4 mg/dL (0.6-1.3); MAGNESIUM 1.9 mg/dL (1.8-2.4); PHOSPHOROUS 3.4 mg/dL (2.5-4.9); POTASSIUM 2.9 mmol/L (3.5-5.1); TOTAL PROTEIN, SERUM 6.6 g/dL (6.4-8.2)
[2017-10-20] MEDS: AMLODIPINE 10 MG TABLET PO SCH (09:07)
[2017-10-20 11:30] VITALS: BP 133/82
[2017-10-20] MEDS ORDERED: POTASSIUM CHLORIDE 20 MEQ TAB.PRT.SR PO ONE (11:45)
[2017-10-20 12:06] LABS: CANCER AG, 125 10.1 U/mL (0.0-38.1)
[2017-10-20 15:55] VITALS: BP 139/97
--- NOTE | 2017-10-20 16:13 | NUR ---
Patient IV infiltrated on the right arm. Started a new IV line on the left forearm with 22 gauge needle. New line patent and intact. patient tolerating well.
--- NOTE | 2017-10-20 17:38 | NUR ---
Irena from admitting spoke with family regarding transfer. Patient's insurance will allow transfer to [facility] in [place]. Spoke with Dr Kaela Taylor who ordered urine culture and order for transfer.
[2017-10-20 20:00] VITALS: BP 122/82
--- NOTE | 2017-10-20 20:00 | NUR ---
Received patient awake but upset. Patient stated nobody spoke to her the whole day after EGD procedure & she's starving. Reviewed plan of care. Started patient on soft diet. Patient tolerated tuna sandwich. Sinus rhythm on the monitor.
[2017-10-20] MEDS: ZOLPIDEM 5 MG TABLET PO PRN (23:38)
[2017-10-21 00:22] VITALS: BP 102/55
[2017-10-21 04:00] VITALS: BP 148/88
--- NOTE | 2017-10-21 06:00 | NUR ---
Discussed patient's concern to charge nurse. Placed on Regular diet. No acute resp distress. Vital signs WNL. Will continue to monitor.
[2017-10-21] MEDS: SUCRALFATE 1 G TABLET PO SCH ×2 (06:26→11:22)
[2017-10-21 07:36] LABS: BASOPHILS % (AUTO) 0.4 % (0.0-2.0); EOSINOPHILS % (AUTO) 0.8 % (0.0-7.0); HEMATOCRIT 41.6 % (31.2-41.9); HEMOGLOBIN 13.8 g/dL (10.9-14.3); LYMPHOCYTES # (AUTO) 1.3 K/uL (20.0-40.0); LYMPHOCYTES % (AUTO) 20.7 % (20.5-51.5); MEAN CORPUSCULAR HEMOGLOBIN 31.2 uug (24.7-32.8); MEAN CORPUSCULAR HGB CONC 33 g/dL (32.3-35.6); MEAN CORPUSCULAR VOLUME 94.1 fL (75.5-95.3); MONOCYTES # (AUTO) 0.4 K/uL (2.0-10.0); MONOCYTES % (AUTO) 7.2 % (0.0-11.0); NEUTROPHILS # (AUTO) 4.4 K/uL (1.8-8.9); NEUTROPHILS % (AUTO) 70.9 % (38.5-71.5); PLATELET COUNT (AUTO) 133 K/uL (179-408); RED BLOOD CELL COUNT(AUTO) 4.42 MIL/uL (3.63-4.92)
[2017-10-21 07:38] LABS: BILIRUBIN,TOTAL 0.8 mg/dL (0.2-1.0); MAGNESIUM 1.8 mg/dL (1.8-2.4); PHOSPHOROUS 2.4 mg/dL (2.5-4.9); POTASSIUM 3.4 mmol/L (3.5-5.1)
[2017-10-21 07:47] LABS: WHITE BLOOD COUNT (AUTO) 6.2 K/uL (3.8-11.8)
[2017-10-21] MEDS: AMLODIPINE 10 MG TABLET PO SCH (08:38)
[2017-10-21 11:14] VITALS: BP 137/72
[2017-10-21] MEDS: IV D5W-0.45% NS +20 KCL 1,000 ML IV PRN (11:22)
[2017-10-21] MEDS ORDERED: POTASSIUM CHLORIDE 20 MEQ TAB.PRT.SR PO ONE (11:45)
[2017-10-21] MEDS ORDERED: PANT40TA4 PO (14:34)
[2017-10-21] MEDS ORDERED: CHOL4PAC6 PO (14:34)
[2017-10-21 15:01] VITALS: BP 134/88
--- NOTE | 2017-10-21 15:30 | NUR ---
Pt is in no acute distress. Discharge instructions given to patient. Pt verbalized understanding. Pharmacist spoke with patient re: new medications. Gave pt copy of cd for her images done here in [place]. Prescription given. to patient. Pt to fu with PMD for vaccination. Pt is to f/u with yoel ramirez in 3 days.
== END 2017-10-21 15:30 | disposition home or self-care (01) | DRG 391 ==
LOC: ER 18:15 → MED 21:52 → TELE 10-19 16:33
PROVIDERS: ADMIT Nurse Practitioner Acute Care; ATTEND Nurse Practitioner Acute Care
PROC: 0DB98ZX Excision of Duodenum, Via Natural or Artificial Opening Endoscopic, Diagnostic (ICD-10-PCS; principal; 2017-10-20)
DX: K58.2 Mixed irritable bowel syndrome (principal); N17.0 Acute kidney failure with tubular necrosis; K86.1 Other chronic pancreatitis; Z87.442 Personal history of urinary calculi; K21.9 Gastro-esophageal reflux disease without esophagitis; K44.9 Diaphragmatic hernia without obstruction or gangrene; K29.70 Gastritis, unspecified, without bleeding; D25.9 Leiomyoma of uterus, unspecified; G89.29 Other chronic pain; E86.0 Dehydration; E87.5 Hyperkalemia; E78.5 Hyperlipidemia, unspecified; I10 Essential (primary) hypertension; Z82.49 Family history of ischemic heart disease and other diseases of the circulatory system; Z90.49 Acquired absence of other specified parts of digestive tract; K57.30 Diverticulosis of large intestine without perforation or abscess without bleeding
CPT/HCPCS: 36415; 74150; 82378; 83690; 83735; 84100; 85025; 86300; 86301; A4663; J0360; J1885; J2270; J2405; J2765; J3490; J7030

== ENCOUNTER 2018-05-03 10:10 | Inpatient (IN) | payer MEDICARE ==
[~2018-05-03] VITALS: Ht 160 cm; Wt 78.5 kg
[~2018-05-03 10:10] MED LIST changes: +CHOL4PAC6 PO; +ONDA4TAB8 PO; +PANT40TA4 PO
[2018-05-03] MEDS ORDERED: ONDANSETRON IV *ER 4 MG/2 ML VIAL IV ONE ×2 (10:31→11:15)
[2018-05-03] MEDS ORDERED: ONDANSETRON 4 MG/2 ML VIAL ONE ×2 (10:43→11:10)
[2018-05-03] MEDS ORDERED: PANTOPRAZOLE SODIUM 40 MG VIAL ONE (10:43)
[2018-05-03] MEDS ORDERED: IV NS 1000 ML 1,000 ML IV ONE ×3 (10:45→21:00)
[2018-05-03] MEDS ORDERED: PANTOPRAZOLE SODIUM 40 MG VIAL IV ONE (10:45)
[2018-05-03 10:49] LABS: BASOPHILS % (AUTO) 0.3 % (0.0-2.0); HEMATOCRIT 44.3 % (31.2-41.9); HEMOGLOBIN 14.8 g/dL (10.9-14.3); LYMPHOCYTES # (AUTO) 0.4 K/uL (20.0-40.0); LYMPHOCYTES % (AUTO) 2.6 % (20.5-51.5); MEAN CORPUSCULAR HEMOGLOBIN 31.6 uug (24.7-32.8); MEAN CORPUSCULAR HGB CONC 34 g/dL (32.3-35.6); MEAN CORPUSCULAR VOLUME 94.3 fL (75.5-95.3); MONOCYTES # (AUTO) 0.5 K/uL (2.0-10.0); MONOCYTES % (AUTO) 3.1 % (0.0-11.0); NEUTROPHILS # (AUTO) 14.3 K/uL (1.8-8.9); PLATELET COUNT (AUTO) 183 K/uL (179-408); WHITE BLOOD COUNT (AUTO) 15.2 K/uL (3.8-11.8)
[2018-05-03] MEDS ORDERED: MORPHINE SULFATE 2 MG/1 ML DISP.SYRIN IV ONE (11:05)
[2018-05-03 11:06] LABS: BILIRUBIN,TOTAL 0.4 mg/dL (0.2-1.0)
[2018-05-03] MEDS ORDERED: MORPHINE SULFATE 4 MG/1 ML DISP.SYRIN ONE (11:20)
[2018-05-03 11:49] LABS: *BILIRUBIN,URIN NEGATIVE (NEGATIVE); *BLOOD, URINE NEGATIVE (NEGATIVE); *CLARITY,URINE CLEAR (CLEAR); *COLOR,URINE YELLOW (YELLOW); *KETONES,URINE NEGATIVE (NEGATIVE); *PROTEIN,URINE NEGATIVE (NEGATIVE); *UROBILINOGEN,URINE 0.2 E.U./dl (NORMAL); LEUKOCYTE ESTERASE ,URINE NEGATIVE (NEGATIVE); NITRITE, URINE NEGATIVE (NEGATIVE); PH,URINE 7.5 (5.0-8.0); UGLUCOSE TRACE (NEGATIVE)
[2018-05-03 11:55] LABS: BACTERIA,URINE NONE SEEN /HPF (NONE SEEN); SQUAMOUS EPITHELIAL CELL,UR FEW /HPF (NONE SEEN); WBC,URINE 0-3 /HPF (0-3)
[2018-05-03] MEDS ORDERED: METOPROLOL TARTRATE 5 MG/5 ML VIAL IVP ONE ×2 (12:45→12:55)
[2018-05-03] MEDS: POTASSIUM CHLORIDE 50 ML IV SCH ×3 (13:14→22:41)
[2018-05-03] MEDS ORDERED: SWABABLE VALVE TRANSFER SET EA MC ONE (13:29)
[2018-05-03] MEDS ORDERED: IOHEXOL 300MG/ML 100 ML INFUS..BTL ONE (13:29)
[2018-05-03] MEDS ORDERED: IV NORMAL SALINE 100 ML ONE (13:29)
[2018-05-03 16:53] VITALS: BP 190/107
[2018-05-03] MEDS ORDERED: IV NS 1000 ML 1,000 ML IV PRN (16:58)
[2018-05-03] MEDS ORDERED: HYDROCODONE/APAP 5-325MG TABLET PO PRN (17:00)
[2018-05-03] MEDS ORDERED: PANTOPRAZOLE SODIUM 40 MG VIAL IV SCH (17:00)
[2018-05-03] MEDS ORDERED: Z GUARD REMEDY PASTE 57 GM TUBE TOP PRN (17:00)
[2018-05-03] MEDS ORDERED: MAGNESIUM HYDROXIDE 30 ML LIQUID UDC PO PRN (17:00)
[2018-05-03] MEDS: hydrALAZINE HCL 20 MG/1 ML VIAL IV PRN (17:43)
[2018-05-03] MEDS: CHOLESTYRAMINE/ASPARTAME 4 G/PKT PACKET PO SCH (18:15)
[2018-05-03] MEDS: ONDANSETRON 4 MG/2 ML VIAL IV PRN (18:46)
[2018-05-03 20:00] VITALS: BP 166/94
[2018-05-03] MEDS ORDERED: PIPERACILLIN/TAZOBACTAM/D5W 50 ML IV SCH (21:00)
[2018-05-03] MEDS: MORPHINE SULFATE 4 MG/1 ML DISP.SYRIN IV PRN (21:35)
[2018-05-03] MEDS: METRONIDAZOLE 500 MG/NS 100ML 500 MG in PREMIXED 1 EACH IV SCH (22:00)
[2018-05-03] MEDS ORDERED: METRONIDAZOLE 500 MG/NS 100ML 100 ML IV ONE (22:02)
[2018-05-03] MEDS: CIPROFLOXACIN IV 400 MG in PREMIXED 1 EACH IV SCH (22:22)
[2018-05-04] VITALS: BP 146/86
[2018-05-04] MEDS: ONDANSETRON 4 MG/2 ML VIAL IV PRN ×2 (00:09→05:29)
[2018-05-04] MEDS: POTASSIUM CHLORIDE 50 ML IV SCH (00:19)
[2018-05-04 04:00] VITALS: BP 115/69
[2018-05-04] MEDS ORDERED: METRONIDAZOLE 500 MG/NS 100ML 100 ML IV ONE (04:50)
[2018-05-04] MEDS: METRONIDAZOLE 500 MG/NS 100ML 500 MG in PREMIXED 1 EACH IV SCH ×2 (05:13→13:49)
[2018-05-04] MEDS: PANTOPRAZOLE SODIUM 40 MG VIAL IV SCH (06:56)
[2018-05-04 07:02] LABS: HEMOGLOBIN 13.5 g/dL (10.9-14.3); LYMPHOCYTES # (AUTO) 0.9 K/uL (20.0-40.0); LYMPHOCYTES % (AUTO) 7.1 % (20.5-51.5); MEAN CORPUSCULAR HEMOGLOBIN 32.1 uug (24.7-32.8); MEAN CORPUSCULAR HGB CONC 34 g/dL (32.3-35.6); MEAN CORPUSCULAR VOLUME 94.2 fL (75.5-95.3); MONOCYTES # (AUTO) 0.7 K/uL (2.0-10.0); MONOCYTES % (AUTO) 5.4 % (0.0-11.0); NEUTROPHILS # (AUTO) 10.8 K/uL (1.8-8.9); NEUTROPHILS % (AUTO) 87.5 % (38.5-71.5); PLATELET COUNT (AUTO) 158 K/uL (179-408); RED BLOOD CELL COUNT(AUTO) 4.21 MIL/uL (3.63-4.92); WHITE BLOOD COUNT (AUTO) 12.3 K/uL (3.8-11.8)
[2018-05-04 07:07] LABS: THYROID STIMULATING HORMONE 0.721 mIU/mL (0.358-3.740)
[2018-05-04 07:09] LABS: HEMATOCRIT 39.7 % (31.2-41.9)
[2018-05-04 07:10] LABS: CREATININE 0.9 mg/dL (0.6-1.3); MAGNESIUM 1.6 mg/dL (1.8-2.4); PHOSPHOROUS 2.3 mg/dL (2.5-4.9); POTASSIUM 3.4 mmol/L (3.5-5.1)
[2018-05-04] MEDS: AMLODIPINE 10 MG TABLET PO SCH (09:01)
[2018-05-04] MEDS: CHOLESTYRAMINE/ASPARTAME 4 G/PKT PACKET PO SCH (09:01)
[2018-05-04] MEDS: MORPHINE SULFATE 4 MG/1 ML DISP.SYRIN IV PRN (09:02)
[2018-05-04] MEDS ORDERED: POTASSIUM CHLORIDE 20 MEQ TAB.PRT.SR PO ONE (09:30)
[2018-05-04] MEDS ORDERED: MAGNESIUM OXIDE 400 MG TABLET PO ONE (09:30)
[2018-05-04] MEDS: CIPROFLOXACIN IV 400 MG in PREMIXED 1 EACH IV SCH (10:06)
[2018-05-04 11:46] VITALS: BP 112/70
[2018-05-04] MEDS: CHOLESTYRAMINE/SUCROSE 4 GM PACKET PO SCH ×2 (13:48→16:30)
[2018-05-04 15:34] VITALS: BP 110/65
[2018-05-04] MEDS ORDERED: NEUTRA PHOS PACKET PO ONE (15:45)
[2018-05-04 20:00] VITALS: BP 136/91
[2018-05-04] MEDS: LEVOFLOXACIN 500 MG TABLET PO SCH (20:45)
[2018-05-04] MEDS: IV NS 1000 ML 1,000 ML IV PRN (20:45)
[2018-05-04] MEDS: METRONIDAZOLE 500 MG TABLET PO SCH (21:55)
[2018-05-05] VITALS (9 sets, daily range): BP systolic 122–173; BP diastolic 65–106
[2018-05-05] MEDS: ACETAMINOPHEN 325 MG TABLET PO PRN ×2 (00:24→22:15)
[2018-05-05] MEDS: hydrALAZINE HCL 20 MG/1 ML VIAL IV PRN ×2 (03:02→11:19)
[2018-05-05] MEDS: ONDANSETRON 4 MG/2 ML VIAL IV PRN ×2 (04:14→11:19)
[2018-05-05] MEDS: METRONIDAZOLE 500 MG TABLET PO SCH ×3 (06:00→22:00)
[2018-05-05] MEDS: PANTOPRAZOLE SODIUM 40 MG VIAL IV SCH (06:14)
[2018-05-05] MEDS: IV NS 1000 ML 1,000 ML IV PRN ×2 (06:32→17:52)
[2018-05-05 07:03] LABS: BASOPHILS % (AUTO) 0.2 % (0.0-2.0); BILIRUBIN,DIRECT 0.1 mg/dL (0.0-0.2); BILIRUBIN,TOTAL 0.5 mg/dL (0.2-1.0); HEMATOCRIT 42.3 % (31.2-41.9); HEMOGLOBIN 14.4 g/dL (10.9-14.3); LYMPHOCYTES # (AUTO) 0.8 K/uL (20.0-40.0); LYMPHOCYTES % (AUTO) 9.3 % (20.5-51.5); MAGNESIUM 1.8 mg/dL (1.8-2.4); MEAN CORPUSCULAR HEMOGLOBIN 31.9 uug (24.7-32.8); MEAN CORPUSCULAR HGB CONC 34 g/dL (32.3-35.6); MEAN CORPUSCULAR VOLUME 93.9 fL (75.5-95.3); MONOCYTES # (AUTO) 0.4 K/uL (2.0-10.0); MONOCYTES % (AUTO) 4.8 % (0.0-11.0); NEUTROPHILS # (AUTO) 7.8 K/uL (1.8-8.9); NEUTROPHILS % (AUTO) 85.7 % (38.5-71.5); PLATELET COUNT (AUTO) 165 K/uL (179-408); POTASSIUM 3.2 mmol/L (3.5-5.1); RED BLOOD CELL COUNT(AUTO) 4.51 MIL/uL (3.63-4.92); TOTAL PROTEIN, SERUM 7.2 g/dL (6.4-8.2); WHITE BLOOD COUNT (AUTO) 9.1 K/uL (3.8-11.8)
[2018-05-05] MEDS: AMLODIPINE 10 MG TABLET PO SCH (08:51)
[2018-05-05] MEDS: CHOLESTYRAMINE/SUCROSE 4 GM PACKET PO SCH ×3 (08:52→17:00)
[2018-05-05] MEDS: MORPHINE SULFATE 4 MG/1 ML DISP.SYRIN IV PRN (11:20)
[2018-05-05] MEDS ORDERED: POTASSIUM CHLORIDE 20 MEQ TAB.PRT.SR PO ONE (12:00)
[2018-05-05] MEDS: LEVOFLOXACIN 500 MG TABLET PO SCH (20:09)
[2018-05-06] VITALS: BP 133/81
[2018-05-06] MEDS: IV NS 1000 ML 1,000 ML IV PRN ×2 (01:57→12:57)
[2018-05-06 04:00] VITALS: BP 134/83
[2018-05-06] MEDS: METRONIDAZOLE 500 MG TABLET PO SCH ×2 (05:26→14:01)
[2018-05-06] MEDS: PANTOPRAZOLE SODIUM 40 MG VIAL IV SCH (06:00)
[2018-05-06 06:14] LABS: BASOPHILS % (AUTO) 0.3 % (0.0-2.0); EOSINOPHILS % (AUTO) 0.2 % (0.0-7.0); HEMATOCRIT 40.9 % (31.2-41.9); HEMOGLOBIN 13.9 g/dL (10.9-14.3); LYMPHOCYTES # (AUTO) 1.2 K/uL (20.0-40.0); LYMPHOCYTES % (AUTO) 16.7 % (20.5-51.5); MEAN CORPUSCULAR HGB CONC 34 g/dL (32.3-35.6); MEAN CORPUSCULAR VOLUME 94.4 fL (75.5-95.3); MONOCYTES # (AUTO) 0.5 K/uL (2.0-10.0); MONOCYTES % (AUTO) 7.7 % (0.0-11.0); NEUTROPHILS # (AUTO) 5.3 K/uL (1.8-8.9); NEUTROPHILS % (AUTO) 75.1 % (38.5-71.5); PLATELET COUNT (AUTO) 130 K/uL (179-408); RED BLOOD CELL COUNT(AUTO) 4.34 MIL/uL (3.63-4.92); WHITE BLOOD COUNT (AUTO) 7.1 K/uL (3.8-11.8)
[2018-05-06 06:29] LABS: BILIRUBIN,DIRECT 0.2 mg/dL (0.0-0.2); BILIRUBIN,TOTAL 0.6 mg/dL (0.2-1.0); CREATININE 0.9 mg/dL (0.6-1.3); POTASSIUM 3.5 mmol/L (3.5-5.1); TOTAL PROTEIN, SERUM 6.5 g/dL (6.4-8.2)
[2018-05-06] MEDS: CHOLESTYRAMINE/SUCROSE 4 GM PACKET PO SCH ×2 (08:54→12:56)
[2018-05-06] MEDS: AMLODIPINE 10 MG TABLET PO SCH (08:54)
[2018-05-06 11:58] VITALS: BP 133/80
[2018-05-07] MEDS ORDERED: PANTOPRAZOLE SODIUM 40 MG TABLET.DR PO SCH (07:00)
== END 2018-05-06 15:36 | disposition home or self-care (01) | DRG 872 ==
LOC: ER 10:10 → TELE 16:00
PROVIDERS: ADMIT Nurse Practitioner Acute Care; ATTEND Nurse Practitioner Acute Care
DX: A41.9 Sepsis, unspecified organism (principal); E87.2 Acidosis; A08.4 Viral intestinal infection, unspecified; E78.5 Hyperlipidemia, unspecified; E83.39 Other disorders of phosphorus metabolism; E83.42 Hypomagnesemia; E87.6 Hypokalemia; K44.9 Diaphragmatic hernia without obstruction or gangrene; K29.70 Gastritis, unspecified, without bleeding; R74.0 Nonspecific elevation of levels of transaminase and lactic acid dehydrogenase [LDH]; I10 Essential (primary) hypertension; G43.A0 Cyclical vomiting, in migraine, not intractable; T40.7X5A Adverse effect of cannabis (derivatives), initial encounter; Y92.009 Unspecified place in unspecified non-institutional (private) residence as the place of occurrence of the external cause; R65.20 Severe sepsis without septic shock; F12.988 Cannabis use, unspecified with other cannabis-induced disorder; K31.89 Other diseases of stomach and duodenum
CPT/HCPCS: 36415; 70030-TC; 76700; 83605; 83690; 83735; 84100; 84443; 85025; 87040; 87086; 87177; 89055; 93005; A4663; C9113; J0360; J0744; J2270; J2405; J2543; J3480; J3490; J7030; J7040; Q9967

== ENCOUNTER 2019-04-01 16:39 | Emergency (ER) | payer MEDICARE ==
[~2019-04-01] VITALS: Ht 160 cm; Wt 76.2 kg
[~2019-04-01 16:39] MED LIST changes: -AMLO10TA2 PO; +AMLO10TA7 PO
[2019-04-01] MEDS ORDERED: MORPHINE SULFATE 2 MG/1 ML DISP.SYRIN ONE (16:52)
[2019-04-01] MEDS ORDERED: ONDANSETRON 4 MG/2 ML VIAL ONE ×3 (16:52→19:30)
[2019-04-01] MEDS: ONDANSETRON 4 MG/2 ML VIAL IV ONE ×3 (16:57→19:30)
[2019-04-01] MEDS: IV NORMAL SALINE 1000 ML BAG IV ONE (16:57)
[2019-04-01] MEDS: MORPHINE SULFATE 2 MG/1 ML DISP.SYRIN IV ONE (16:57)
[2019-04-01 16:58] LABS: BASOPHILS % (AUTO) 0.1 % (0.0-2.0); HEMATOCRIT 40.8 % (31.2-41.9); HEMOGLOBIN 13.5 g/dL (10.9-14.3); LYMPHOCYTES # (AUTO) 0.4 K/uL (20.0-40.0); LYMPHOCYTES % (AUTO) 3.7 % (20.5-51.5); MEAN CORPUSCULAR HEMOGLOBIN 30.5 uug (24.7-32.8); MEAN CORPUSCULAR HGB CONC 33 g/dL (32.3-35.6); MEAN CORPUSCULAR VOLUME 92.7 fL (75.5-95.3); MONOCYTES # (AUTO) 0.2 K/uL (2.0-10.0); MONOCYTES % (AUTO) 1.3 % (0.0-11.0); NEUTROPHILS # (AUTO) 11.5 K/uL (1.8-8.9); NEUTROPHILS % (AUTO) 94.9 % (38.5-71.5); PLATELET COUNT (AUTO) 215 K/uL (179-408); RED BLOOD CELL COUNT(AUTO) 4.41 MIL/uL (3.63-4.92); WHITE BLOOD COUNT (AUTO) 12.1 K/uL (3.8-11.8)
[2019-04-01 17:05] LABS: CREATININE 0.9 mg/dL (0.6-1.3); POTASSIUM 3.3 mmol/L (3.5-5.1)
[2019-04-01 17:10] LABS: BILIRUBIN,DIRECT 0.1 mg/dL (0.0-0.2); BILIRUBIN,TOTAL 0.5 mg/dL (0.2-1.0); TOTAL PROTEIN, SERUM 8.5 g/dL (6.4-8.2)
[2019-04-01 18:18] LABS: *BILIRUBIN,URIN NEGATIVE (NEGATIVE); *CLARITY,URINE CLEAR (CLEAR); *COLOR,URINE YELLOW (YELLOW); *KETONES,URINE 1+ (NEGATIVE); *UROBILINOGEN,URINE 0.2 E.U./dl (NORMAL); LEUKOCYTE ESTERASE ,URINE NEGATIVE (NEGATIVE); NITRITE, URINE NEGATIVE (NEGATIVE); UGLUCOSE NEGATIVE (NEGATIVE)
[2019-04-01 18:23] LABS: *BLOOD, URINE TRACE (NEGATIVE)
[2019-04-01 18:48] LABS: RBC,URINE 0-3 /HPF (0-3); SQUAMOUS EPITHELIAL CELL,UR FEW /HPF (NONE SEEN); WBC,URINE 0-3 /HPF (0-3)
--- NOTE | 2019-04-01 19:14 | NUR ---
Assumed care for patient at this time. Pt pending discharge, per report patient is still nauseated. Will reassess. Safe environment implemented.
[2019-04-01 19:42] VITALS: BP 130/76
--- NOTE | 2019-04-01 19:44 | NUR ---
IV removed. Catheter intact and site benign. Pressure and 4x4 gauze applied to site. No bleeding noted.Patient discharged to home in stable conditon. Written and verbal after care instructions given. Patient verbalizes understanding of instructions. Patient ambulated out of ER with steady gait. All belongings with patient.
== END 2019-04-01 19:45 | disposition home or self-care (01) ==
LOC: ER 16:39
DX: R11.2 Nausea with vomiting, unspecified (principal); R19.7 Diarrhea, unspecified; R10.84 Generalized abdominal pain; I10 Essential (primary) hypertension; F12.10 Cannabis abuse, uncomplicated; Z90.49 Acquired absence of other specified parts of digestive tract; Z79.899 Other long term (current) drug therapy
CPT/HCPCS: 36415; 74176; 80048; 80076; 81001; 83690; 85025; 96361; 96374; 96375; 96376; 99284; J2270; J2405 ×3; A4663; J7030

== ENCOUNTER 2019-04-03 11:16 | Inpatient (IN) | payer MEDICARE ==
[~2019-04-03] VITALS: Ht 160 cm; Wt 72.6 kg
[2019-04-03] MEDS ORDERED: ONDANSETRON 4 MG/2 ML VIAL ONE (11:40)
[2019-04-03] MEDS ORDERED: ONDANSETRON 4 MG/2 ML VIAL IV ONE (11:45)
[2019-04-03] MEDS ORDERED: IV NORMAL SALINE 1000 ML BAG IV ONE (11:45)
[2019-04-03 11:51] LABS: BASOPHILS # (AUTO) 0.1 K/uL (0.0-8.0); BASOPHILS % (AUTO) 0.8 % (0.0-2.0); HEMATOCRIT 41.1 % (31.2-41.9); HEMOGLOBIN 13.6 g/dL (10.9-14.3); LYMPHOCYTES # (AUTO) 1.1 K/uL (20.0-40.0); LYMPHOCYTES % (AUTO) 10.4 % (20.5-51.5); MEAN CORPUSCULAR HEMOGLOBIN 30.6 uug (24.7-32.8); MEAN CORPUSCULAR HGB CONC 33 g/dL (32.3-35.6); MEAN CORPUSCULAR VOLUME 92.2 fL (75.5-95.3); MONOCYTES # (AUTO) 0.8 K/uL (2.0-10.0); MONOCYTES % (AUTO) 7.4 % (0.0-11.0); NEUTROPHILS # (AUTO) 8.7 K/uL (1.8-8.9); NEUTROPHILS % (AUTO) 81.4 % (38.5-71.5); PLATELET COUNT (AUTO) 197 K/uL (179-408); RED BLOOD CELL COUNT(AUTO) 4.46 MIL/uL (3.63-4.92); WHITE BLOOD COUNT (AUTO) 10.7 K/uL (3.8-11.8)
[2019-04-03 12:04] LABS: BILIRUBIN,DIRECT 0.2 mg/dL (0.0-0.2); BILIRUBIN,TOTAL 0.7 mg/dL (0.2-1.0); CREATININE 1.4 mg/dL (0.6-1.3); TOTAL PROTEIN, SERUM 7.4 g/dL (6.4-8.2)
[2019-04-03 12:05] LABS: POTASSIUM 2.6 mmol/L (3.5-5.1)
--- NOTE | 2019-04-03 12:16 | NUR ---
Patient ambulated to bathroom without assitance, urine specimen was requested.
--- NOTE | 2019-04-03 12:17 | NUR ---
Paged [facility] [employer], awaiting call back from Dr Sow.
[2019-04-03] MEDS: POTASSIUM CHLORIDE 50 ML IV SCH ×2 (12:20→13:11)
[2019-04-03 12:21] LABS: *BILIRUBIN,URIN NEGATIVE (NEGATIVE); *CLARITY,URINE CLEAR (CLEAR); *COLOR,URINE YELLOW (YELLOW); *KETONES,URINE NEGATIVE (NEGATIVE); *UROBILINOGEN,URINE 0.2 E.U./dl (NORMAL); LEUKOCYTE ESTERASE ,URINE NEGATIVE (NEGATIVE); NITRITE, URINE NEGATIVE (NEGATIVE); PH,URINE 6.5 (5.0-8.0); UGLUCOSE NEGATIVE (NEGATIVE)
[2019-04-03] MEDS ORDERED: POTASSIUM CHLORIDE 50 ML ONE ×2 (12:23→13:15)
[2019-04-03 12:26] LABS: *BLOOD, URINE NEGATIVE (NEGATIVE)
[2019-04-03 12:27] LABS: BACTERIA,URINE FEW /HPF (NONE SEEN); RBC,URINE NONE SEEN /HPF (0-3); SQUAMOUS EPITHELIAL CELL,UR FEW /HPF (NONE SEEN); WBC,URINE NONE SEEN /HPF (0-3)
--- NOTE | 2019-04-03 13:17 | NUR ---
Patient is resting comfortably on gurney with eyes closed, no vomiting or diarrhea episodes seen while in ER. NPO maintained. @this time, we are waiting for admitting papers from ER registration staff Sherif
[2019-04-03 13:50] VITALS: BP 157/106
--- NOTE | 2019-04-03 13:50 | NUR ---
PATIENT ADMIT TO TELE, AO4, NO SOB , NAUSEATED AND TRIED TO VOMIT, NO DISTRESS , BP IS CINTHYA SBP 150S, WILL CALL FOR ORDERS ORDERS SAFETY INSTRUCTED, START CARE PLAN
[2019-04-03 14:00] VITALS: BP 157/106
[2019-04-03] MEDS ORDERED: IV NORMAL SALINE 250 ML IV ONE (14:29)
[2019-04-03] MEDS ORDERED: SWABABLE VALVE TRANSFER SET EA MC ONE (14:29)
[2019-04-03] MEDS ORDERED: IOHEXOL 350 100 ML INFUS..BTL ONE (14:29)
[2019-04-03] MEDS ORDERED: PANTOPRAZOLE SODIUM 40 MG VIAL IV SCH (14:30)
[2019-04-03] MEDS ORDERED: MORPHINE SULFATE 2 MG/1 ML DISP.SYRIN IV PRN (14:30)
[2019-04-03] MEDS ORDERED: ACETAMINOPHEN 650 MG SUPP.RECT RC PRN (14:30)
[2019-04-03] MEDS ORDERED: BARIUM SULFATE 450 ML ORAL.SUSP ONE (14:30)
[2019-04-03] MEDS ORDERED: DIATR MEGLU/DIATRIZOATE SODIUM 30 ML SOLUTION ONE (15:21)
[2019-04-03] MEDS: ENALAPRILAT DIHYDRATE 1.25 MG/1 ML VIAL IV PRN (15:30)
[2019-04-03] MEDS: POTASSIUM CHLORIDE 20 MEQ in IV D5 1/2 NS 1000 ML 1,000 ML IV PRN (15:31)
[2019-04-03 15:36] VITALS: BP 159/108
[2019-04-03 16:20] VITALS: BP 144/106
--- NOTE | 2019-04-03 18:32 | NUR ---
PATIENT ON TELE SR, AO4, NO SOB , NO NAUSEA OR VOMIT SECOND HALF OF SHIFT , NO DISTRESS , BP IS CINTHYA SBP 140S, DID CT W CONTRAST, CONSENT SIGNED, NO COMPLICATIONS SAFETY MAINTAINED
[2019-04-03 19:18] VITALS: BP 152/97
[2019-04-03] MEDS: FAMOTIDINE. 20 MG/2 ML VIAL IV SCH (21:31)
[2019-04-03] MEDS: METRONIDAZOLE 500 MG/NS 100ML 500 MG in PREMIXED 1 EACH IV SCH (22:00)
[2019-04-03] MEDS ORDERED: LEVOFLOXACIN 500 MG/D5W 500 MG in PREMIXED 1 EACH IV ONE (23:00)
[2019-04-03 23:04] VITALS: BP 135/110
[2019-04-04 00:50] VITALS: BP 142/94
[2019-04-04] MEDS: ONDANSETRON 4 MG/2 ML VIAL IV PRN ×3 (02:13→16:50)
[2019-04-04] MEDS ORDERED: LEVOFLOXACIN 250MG /D5W 50 ML IV ONE (02:16)
[2019-04-04] MEDS ORDERED: METRONIDAZOLE 500 MG/NS 100ML 100 ML IV ONE (02:16)
[2019-04-04 03:15] VITALS: BP 147/90
[2019-04-04 07:00] LABS: BILIRUBIN,TOTAL 0.6 mg/dL (0.2-1.0); MAGNESIUM 1.7 mg/dL (1.8-2.4); PHOSPHOROUS 2.4 mg/dL (2.5-4.9); TOTAL PROTEIN, SERUM 6.6 g/dL (6.4-8.2)
[2019-04-04 07:03] LABS: BASOPHILS % (AUTO) 0.2 % (0.0-2.0); EOSINOPHILS % (AUTO) 0.1 % (0.0-7.0); LYMPHOCYTES # (AUTO) 1.1 K/uL (20.0-40.0); MONOCYTES # (AUTO) 0.6 K/uL (2.0-10.0); THYROID STIMULATING HORMONE 0.478 mIU/mL (0.358-3.740)
[2019-04-04 07:04] LABS: POTASSIUM 2.7 mmol/L (3.5-5.1)
--- NOTE | 2019-04-04 07:05 | NUR ---
Received call from Trevor in Lab. This am potassium level is 2.7. Endorsed to oncoming RN
[2019-04-04 07:20] LABS: HEMATOCRIT 39.1 % (31.2-41.9); LYMPHOCYTES % (AUTO) 14.7 % (20.5-51.5); MEAN CORPUSCULAR HEMOGLOBIN 30.5 uug (24.7-32.8); MEAN CORPUSCULAR HGB CONC 33 g/dL (32.3-35.6); MONOCYTES % (AUTO) 8.1 % (0.0-11.0); NEUTROPHILS # (AUTO) 5.7 K/uL (1.8-8.9); NEUTROPHILS % (AUTO) 76.9 % (38.5-71.5); PLATELET COUNT (AUTO) 160 K/uL (179-408); RED BLOOD CELL COUNT(AUTO) 4.25 MIL/uL (3.63-4.92)
[2019-04-04 07:22] LABS: WHITE BLOOD COUNT (AUTO) 7.4 K/uL (3.8-11.8)
--- NOTE | 2019-04-04 07:30 | NUR ---
Pt in bed awake, alert, oriented, verbally responsive, ivf infusing as ordered,, no distress at this time.
[2019-04-04] MEDS: POTASSIUM CHLORIDE 20 MEQ in IV D5 1/2 NS 1000 ML 1,000 ML IV PRN (07:34)
[2019-04-04 11:01] VITALS: BP 177/117
[2019-04-04] MEDS: METRONIDAZOLE 500 MG/NS 100ML 500 MG in PREMIXED 1 EACH IV SCH ×2 (11:12→21:53)
[2019-04-04] MEDS ORDERED: MAGNESIUM SULFATE/D5W 100 ML IV SCH (12:00)
[2019-04-04] MEDS ORDERED: CLONIDINE-TTS 1 PATCH TD SCH (12:00)
--- NOTE | 2019-04-04 12:30 | NUR ---
Pt in bed awake alert, was medicated earlier with zophran 4 mg ivp for N/V with good reilif, iv started to R hand 22 naga.
[2019-04-04] MEDS: ENALAPRILAT DIHYDRATE 1.25 MG/1 ML VIAL IV PRN (12:39)
[2019-04-04] MEDS: POTASSIUM PHOSPHATE MM 5 MMOL in IV DEXTROSE 5% 100 ML IV SCH ×4 (13:16→21:13)
[2019-04-04 15:14] VITALS: BP 149/92
--- NOTE | 2019-04-04 18:32 | NUR ---
pt in bed awake, alert, verbally responsive, medicated earlier with zophran 4 mg iv for N/V feels better now, a sl started to LFA 20 naga, and sl to L hand removed, no distress, DR Cabrera aware of MG 1.7, K+ 2.7, and is being replace, no distress.
--- NOTE | 2019-04-04 19:40 | NUR ---
PATIENT LYING ON BED AWAKE. NO C/O OF PAIN OR DISCOMFORT . SINUS RHYTHM ON THE MONITOR . 3 RD BAG POTASSIUM IV INFUSING ORDERED. ONE MORE BAG REMAINS. WILL [id number] TO MONITOR
[2019-04-04 20:00] VITALS: BP 134/73
[2019-04-04] MEDS: FAMOTIDINE. 20 MG/2 ML VIAL IV SCH (21:06)
--- NOTE | 2019-04-04 21:50 | NUR ---
TELEMETRY DISCONTINUED ORDERED.
[2019-04-04] MEDS: LEVOFLOXACIN 250MG /D5W 250 MG in PREMIXED 1 EACH IV SCH (23:07)
[2019-04-05 05:19] VITALS: BP 116/76
[2019-04-05] MEDS: POTASSIUM CHLORIDE 20 MEQ in IV D5 1/2 NS 1000 ML 1,000 ML IV PRN (05:54)
[2019-04-05] MEDS: METRONIDAZOLE 500 MG/NS 100ML 500 MG in PREMIXED 1 EACH IV SCH ×3 (05:55→22:24)
[2019-04-05 07:06] LABS: BASOPHILS % (AUTO) 0.3 % (0.0-2.0); EOSINOPHILS # (AUTO) 0.1 K/uL (0.0-0.7); EOSINOPHILS % (AUTO) 0.9 % (0.0-7.0); HEMATOCRIT 36.9 % (31.2-41.9); HEMOGLOBIN 12.2 g/dL (10.9-14.3); LYMPHOCYTES # (AUTO) 1.3 K/uL (20.0-40.0); LYMPHOCYTES % (AUTO) 22.6 % (20.5-51.5); MEAN CORPUSCULAR HEMOGLOBIN 30.5 uug (24.7-32.8); MEAN CORPUSCULAR HGB CONC 33 g/dL (32.3-35.6); MONOCYTES # (AUTO) 0.6 K/uL (2.0-10.0); MONOCYTES % (AUTO) 9.7 % (0.0-11.0); NEUTROPHILS # (AUTO) 3.9 K/uL (1.8-8.9); NEUTROPHILS % (AUTO) 66.5 % (38.5-71.5); PLATELET COUNT (AUTO) 135 K/uL (179-408); WHITE BLOOD COUNT (AUTO) 5.9 K/uL (3.8-11.8)
--- NOTE | 2019-04-05 07:10 | NUR ---
Nurse Notes: received report from the night nurse Raina Daniels RN, patient is resting in bed. IV is infusing at 100 cc per hour right hand, left hand for IV antibiotics
[2019-04-05 07:48] LABS: POTASSIUM 2.7 mmol/L (3.5-5.1)
[2019-04-05] MEDS ORDERED: POTASSIUM CHLORIDE 20 MEQ TAB.PRT.SR PO ONE ×2 (11:00→16:45)
--- NOTE | 2019-04-05 11:00 | NUR ---
Nurse Notes: patient assisted to shower. patient is med-surg. No request for pain medications
[2019-04-05 11:10] VITALS: BP 105/61
--- NOTE | 2019-04-05 13:12 | NUR ---
Nurse Notes: potassium remains 2.7, orally potassium was given 40 meQ. patient had shower, feels better. return to IV infusing.
[2019-04-05 15:16] VITALS: BP 112/61
--- NOTE | 2019-04-05 16:35 | NUR ---
Dr Cabrera is ordering another 40meQ potassium. orally, order to be placed.
--- NOTE | 2019-04-05 19:20 | NUR ---
SHIFT REPORT report given to the night nurse Raina Walker RN, IV is infusing in left AC, right hand IV site is painful. No complaints of any pain.
--- NOTE | 2019-04-05 19:30 | NUR ---
PATIENT ALERT AND AWAKE ON BED. PATIENT STATED SHE HAD 3-4 TIMES LOOSE BM DURING EH DAY SHIFT. NO N/V. NO ABD PAIN . WILL CONTINUE OT MONITOR. IV LFA INTACT AND IS INFUSING IV FLUID ORDERED.
[2019-04-05 20:00] VITALS: BP 104/66
[2019-04-05] MEDS: FAMOTIDINE. 20 MG/2 ML VIAL IV SCH (20:56)
[2019-04-05] MEDS: LEVOFLOXACIN 250MG /D5W 250 MG in PREMIXED 1 EACH IV SCH (23:22)
[2019-04-06] MEDS: POTASSIUM CHLORIDE 20 MEQ in IV D5 1/2 NS 1000 ML 1,000 ML IV PRN (04:16)
[2019-04-06 05:17] VITALS: BP 123/66
[2019-04-06] MEDS: METRONIDAZOLE 500 MG/NS 100ML 500 MG in PREMIXED 1 EACH IV SCH (05:56)
[2019-04-06 07:02] LABS: CREATININE 1.1 mg/dL (0.6-1.3); POTASSIUM 3.8 mmol/L (3.5-5.1)
--- NOTE | 2019-04-06 07:25 | NUR ---
PATIENT ALERT AND AWAKE ON BED. NO C/O ABD PAIN AT THIS TIME. WILL CONTINUE OT MONITOR. IV LFA INTACT AND IS INFUSING IV FLUID ORDERED, SAFETY AND COMFORT PROVIDED AT ALL TIMES. WILL CONTINUE TO MONITOR.
[2019-04-06] MEDS ORDERED: POTASSIUM CHLORIDE 20 MEQ TAB.PRT.SR PO ONE (11:30)
[2019-04-06 12:45] VITALS: BP 95/48
[2019-04-06] MEDS ORDERED: METRONIDAZOLE 500 MG TABLET PO SCH (14:00)
[2019-04-06 16:28] VITALS: BP 124/75
--- NOTE | 2019-04-06 18:29 | NUR ---
RECEIVED ORDER TO DISCHARGE PATIENT TO HOME, ALERT AND ORIENTED , PATIENT READY TO GO HOME AND WAITING FOR HER RIDE, ABLE TO MAKE NEEDS KNOWN, NO C/O PAIN AT THIS TIME, NO SOB NOTED. PLEASANT PATIENT.
--- NOTE | 2019-04-06 19:30 | NUR ---
Received patient awake and alert in bed. Patient is waiting for grandson to pick her up, she will be discharged home. Belongings list done, discharge papers explained and given to patient. No signs of acute distress noted. No complaints of pain or SOB. No complaints of nausea or vomiting, patient stated that she feels good. IV and name band were removed. Safety measures initiated. Bed is low and locked, call light within reach. Will continue to monitor.
[2019-04-06 20:15] VITALS: BP 130/79
--- NOTE | 2019-04-06 20:50 | NUR ---
Patient was brought downstairs via wheelchair to [facility]. Patient left in stable condition. All belongings and discharge papers were with patient.
[2019-04-06] MEDS ORDERED: LEVOFLOXACIN 250 MG TABLET PO SCH (23:00)
== END 2019-04-06 21:00 | disposition home or self-care (01) | DRG 371 ==
LOC: ER 11:16 → TELE3 13:30 → MEDSURG3 04-04 21:45
PROVIDERS: ADMIT Internal Medicine; ATTEND Internal Medicine
DX: A04.9 Bacterial intestinal infection, unspecified (principal); N17.0 Acute kidney failure with tubular necrosis; E87.6 Hypokalemia; K31.89 Other diseases of stomach and duodenum; R11.2 Nausea with vomiting, unspecified; T40.7X5A Adverse effect of cannabis (derivatives), initial encounter; T40.605A Adverse effect of unspecified narcotics, initial encounter; Y92.019 Unspecified place in single-family (private) house as the place of occurrence of the external cause; K44.9 Diaphragmatic hernia without obstruction or gangrene; K57.30 Diverticulosis of large intestine without perforation or abscess without bleeding; N28.1 Cyst of kidney, acquired; K76.0 Fatty (change of) liver, not elsewhere classified; E66.9 Obesity, unspecified; Z68.28 Body mass index [BMI] 28.0-28.9, adult; Z90.49 Acquired absence of other specified parts of digestive tract; E83.42 Hypomagnesemia; D69.6 Thrombocytopenia, unspecified; I10 Essential (primary) hypertension; Z87.19 Personal history of other diseases of the digestive system; N20.0 Calculus of kidney; F12.90 Cannabis use, unspecified, uncomplicated; E78.5 Hyperlipidemia, unspecified
CPT/HCPCS: 36415; 70030-TC; 71045; 83690; 83735; 84100; 84443; 85025; 93005; 97116; 97530; A4663; G0378; J1956; J2405; J3475; J3480; J3490; J7030; J7040; J7050; J7060; Q9951; Q9963; Q9967

== ENCOUNTER 2019-08-26 14:44 | Emergency (ER) | payer MEDICARE ==
[~2019-08-26] VITALS: Ht 160 cm; Wt 73.9 kg
[2019-08-26] MEDS ORDERED: HYDR-3326 PO (15:00)
--- NOTE | 2019-08-26 15:30 | NUR ---
at bedside to see and examine patient.
[2019-08-26] MEDS ORDERED: MORPHINE SULFATE 4 MG/1 ML DISP.SYRIN ONE (15:40)
[2019-08-26] MEDS ORDERED: ONDANSETRON 4 MG/2 ML VIAL ONE (15:40)
[2019-08-26] MEDS ORDERED: IV NORMAL SALINE 1000 ML BAG IV ONE (15:45)
[2019-08-26] MEDS ORDERED: ONDANSETRON 4 MG/2 ML VIAL IV ONE (15:45)
[2019-08-26] MEDS ORDERED: MORPHINE SULFATE 4 MG/1 ML DISP.SYRIN IV ONE (15:45)
[2019-08-26 15:54] LABS: BASOPHILS % (AUTO) 0.4 % (0.0-2.0); EOSINOPHILS % (AUTO) 0.2 % (0.0-7.0); HEMATOCRIT 44.2 % (31.2-41.9); LYMPHOCYTES # (AUTO) 0.3 K/uL (20.0-40.0); LYMPHOCYTES % (AUTO) 2.6 % (20.5-51.5); MEAN CORPUSCULAR HEMOGLOBIN 29.7 uug (24.7-32.8); MEAN CORPUSCULAR HGB CONC 32 g/dL (32.3-35.6); MEAN CORPUSCULAR VOLUME 93.1 fL (75.5-95.3); MONOCYTES # (AUTO) 0.1 K/uL (2.0-10.0); MONOCYTES % (AUTO) 1.3 % (0.0-11.0); NEUTROPHILS # (AUTO) 10.6 K/uL (1.8-8.9); NEUTROPHILS % (AUTO) 95.5 % (38.5-71.5); PLATELET COUNT (AUTO) 216 K/uL (179-408); RED BLOOD CELL COUNT(AUTO) 4.75 MIL/uL (3.63-4.92); WHITE BLOOD COUNT (AUTO) 11.1 K/uL (3.8-11.8)
[2019-08-26 16:01] LABS: HEMOGLOBIN 14.2 g/dL (10.9-14.3)
[2019-08-26 16:02] LABS: CREATININE 0.9 mg/dL (0.6-1.3); POTASSIUM 3.4 mmol/L (3.5-5.1)
[2019-08-26 16:08] LABS: BILIRUBIN,DIRECT 0.1 mg/dL (0.0-0.2); BILIRUBIN,TOTAL 0.4 mg/dL (0.2-1.0); TOTAL PROTEIN, SERUM 8.6 g/dL (6.4-8.2)
--- NOTE | 2019-08-26 16:15 | NUR ---
Pt back from CT, NAD noted.
--- NOTE | 2019-08-26 16:20 | NUR ---
vitals of 154/101, with Hr of 100, rr 18, Sat of 98% on RA.
--- NOTE | 2019-08-26 16:58 | NUR ---
Pt ambulated to restroom. Pt states she feels better and her pain is improved (now 5/10). No n/v noted since [facility] adm.
[2019-08-26] MEDS ORDERED: METOCLOPRAMIDE HCL 10 MG/2 ML VIAL ONE (17:00)
[2019-08-26] MEDS ORDERED: METOCLOPRAMIDE HCL 10 MG/2 ML VIAL IV ONE (17:00)
--- NOTE | 2019-08-26 17:09 | NUR ---
DCD isntructions and prescription given to pt. who verbalized understanding. patient medicated one more time for c/of nausea at this time awaiting for reassessment.
--- NOTE | 2019-08-26 18:15 | NUR ---
DCD instructions to patient who verbalized understanding, left room ambulaory with steady gait, no c/of pain, nausea well controlled.
== END 2019-08-26 18:17 | disposition home or self-care (01) ==
LOC: ER 14:45
DX: R10.30 Lower abdominal pain, unspecified (principal); R11.2 Nausea with vomiting, unspecified; I10 Essential (primary) hypertension; F12.10 Cannabis abuse, uncomplicated; Z79.899 Other long term (current) drug therapy
CPT/HCPCS: 36415; 71045; 74176; 80048; 80076; 83690; 84484; 85025; 93005; 96361; 96374; 96375; 99284; J2270; J2405; J2765; 70030-TC; A4663; J7030

== ENCOUNTER 2019-08-28 14:41 | Emergency (ER) | payer MEDICARE ==
[~2019-08-28] VITALS: Ht 160 cm; Wt 73.5 kg
[~2019-08-28 14:41] MED LIST changes: +HYDR-3326 PO
--- NOTE | 2019-08-28 14:50 | NUR ---
pt ambulating with steady gait. A&O x4. c/o persistent N/V. Denies any fever or chills. breathing even and unlabored. No SOB noted. speech clear and able to follow commands. Pulses palpable, cap refill <3 sec. denies any distress. fall precautions implemented. bed low, s/r up x2, call light within reach.
--- NOTE | 2019-08-28 14:56 | NUR ---
ERMD at bedside for MSE
[2019-08-28] MEDS ORDERED: ONDANSETRON 4 MG/2 ML VIAL IV ONE (15:00)
[2019-08-28] MEDS ORDERED: IV NORMAL SALINE 1000 ML BAG IV ONE (15:00)
[2019-08-28] MEDS ORDERED: HYDROMORPHONE 1 MG/1 ML DISP.SYRIN IV ONE (15:00)
[2019-08-28] MEDS ORDERED: HYDROMORPHONE 1 MG/1 ML DISP.SYRIN ONE (15:18)
[2019-08-28] MEDS ORDERED: ONDANSETRON 4 MG/2 ML VIAL ONE (15:19)
[2019-08-28 15:23] LABS: BASOPHILS % (AUTO) 0.1 % (0.0-2.0); HEMATOCRIT 42.9 % (31.2-41.9); HEMOGLOBIN 14.1 g/dL (10.9-14.3); LYMPHOCYTES # (AUTO) 0.8 K/uL (20.0-40.0); LYMPHOCYTES % (AUTO) 8.3 % (20.5-51.5); MEAN CORPUSCULAR HEMOGLOBIN 30.2 uug (24.7-32.8); MEAN CORPUSCULAR HGB CONC 33 g/dL (32.3-35.6); MEAN CORPUSCULAR VOLUME 92.2 fL (75.5-95.3); MONOCYTES # (AUTO) 0.6 K/uL (2.0-10.0); MONOCYTES % (AUTO) 6.5 % (0.0-11.0); NEUTROPHILS # (AUTO) 8.3 K/uL (1.8-8.9); NEUTROPHILS % (AUTO) 85.1 % (38.5-71.5); PLATELET COUNT (AUTO) 206 K/uL (179-408); RED BLOOD CELL COUNT(AUTO) 4.66 MIL/uL (3.63-4.92); WHITE BLOOD COUNT (AUTO) 9.8 K/uL (3.8-11.8)
[2019-08-28 15:29] LABS: CREATININE 1.5 mg/dL (0.6-1.3); POTASSIUM 3.2 mmol/L (3.5-5.1)
[2019-08-28 15:34] LABS: BILIRUBIN,DIRECT 0.2 mg/dL (0.0-0.2); BILIRUBIN,TOTAL 0.7 mg/dL (0.2-1.0); TOTAL PROTEIN, SERUM 8.2 g/dL (6.4-8.2)
[2019-08-28 16:42] VITALS: BP 144/85
== END 2019-08-28 16:40 | disposition home or self-care (01) ==
LOC: ER 14:43
DX: R10.9 Unspecified abdominal pain (principal); R11.2 Nausea with vomiting, unspecified; I10 Essential (primary) hypertension; F12.10 Cannabis abuse, uncomplicated; Z90.49 Acquired absence of other specified parts of digestive tract; Z79.899 Other long term (current) drug therapy
CPT/HCPCS: 36415; 80048; 80076; 83690; 84484; 85025; 93005; 96361; 96374; 96375; 99284; J1170; J2405; 70030-TC; A4663; J7030

== ENCOUNTER 2019-11-17 10:25 | Emergency (ER) | payer MEDICARE, OTHER ==
[~2019-11-17] VITALS: Ht 160 cm; Wt 73.5 kg
--- NOTE | 2019-11-17 10:40 | NUR ---
Dr Ya at the bedside for MSE.
[2019-11-17] MEDS ORDERED: IV NORMAL SALINE 1000 ML BAG IV ONE (10:45)
[2019-11-17] MEDS ORDERED: ONDANSETRON 4 MG/2 ML VIAL IV ONE (10:45)
[2019-11-17] MEDS ORDERED: ONDANSETRON 4 MG/2 ML VIAL ONE (11:02)
[2019-11-17 11:08] LABS: CREATININE 0.8 mg/dL (0.6-1.3); POTASSIUM 2.9 mmol/L (3.5-5.1)
[2019-11-17 11:15] LABS: BILIRUBIN,DIRECT 0.1 mg/dL (0.0-0.2); BILIRUBIN,TOTAL 0.6 mg/dL (0.2-1.0)
--- NOTE | 2019-11-17 11:19 | NUR ---
Patient is resting comfortably in bed with eyes closed, NAD noted.
[2019-11-17 11:22] LABS: BASOPHILS % (AUTO) 0.3 % (0.0-2.0); HEMATOCRIT 44.8 % (31.2-41.9); HEMOGLOBIN 14.8 g/dL (10.9-14.3); LYMPHOCYTES # (AUTO) 0.2 K/uL (20.0-40.0); LYMPHOCYTES % (AUTO) 2.1 % (20.5-51.5); MEAN CORPUSCULAR HEMOGLOBIN 30.2 uug (24.7-32.8); MEAN CORPUSCULAR HGB CONC 33 g/dL (32.3-35.6); MEAN CORPUSCULAR VOLUME 91.4 fL (75.5-95.3); MONOCYTES # (AUTO) 0.1 K/uL (2.0-10.0); MONOCYTES % (AUTO) 1.1 % (0.0-11.0); NEUTROPHILS # (AUTO) 10.8 K/uL (1.8-8.9); NEUTROPHILS % (AUTO) 96.5 % (38.5-71.5); PLATELET COUNT (AUTO) 182 K/uL (179-408); WHITE BLOOD COUNT (AUTO) 11.2 K/uL (3.8-11.8)
[2019-11-17] MEDS ORDERED: POTASSIUM CHLORIDE 20 MEQ TAB.PRT.SR PO ONE (11:30)
[2019-11-17] MEDS ORDERED: KETOROLAC TROMETHAMINE 30 MG INJ IVP ONE (11:30)
[2019-11-17] MEDS ORDERED: KETOROLAC TROMETHAMINE 30 MG INJ ONE (11:30)
[2019-11-17] MEDS ORDERED: POTASSIUM CHLORIDE 20 MEQ TAB.PRT.SR ONE (11:30)
[2019-11-17 11:42] LABS: *BILIRUBIN,URIN NEGATIVE (NEGATIVE); *CLARITY,URINE CLEAR (CLEAR); *COLOR,URINE YELLOW (YELLOW); *KETONES,URINE TRACE (NEGATIVE); *UROBILINOGEN,URINE 0.2 E.U./dl (NORMAL); LEUKOCYTE ESTERASE ,URINE NEGATIVE (NEGATIVE); NITRITE, URINE NEGATIVE (NEGATIVE); PH,URINE 7.5 (5.0-8.0); UGLUCOSE NEGATIVE (NEGATIVE)
[2019-11-17 11:51] LABS: *BLOOD, URINE TRACE (NEGATIVE)
[2019-11-17 11:54] LABS: BACTERIA,URINE NONE SEEN /HPF (NONE SEEN); RBC,URINE 0-3 /HPF (0-3); SQUAMOUS EPITHELIAL CELL,UR FEW /HPF (NONE SEEN); WBC,URINE 0-3 /HPF (0-3)
[2019-11-17 12:05] VITALS: BP 158/94
--- NOTE | 2019-11-17 12:11 | NUR ---
IV removed. Catheter intact and site benign. Pressure and 4x4 gauze applied to site. No bleeding noted.
--- NOTE | 2019-11-17 12:12 | NUR ---
Patient discharged to home in stable conditon. Written and verbal after care instructions given. Patient verbalizes understanding of instructions.
== END 2019-11-17 12:12 | disposition home or self-care (01) ==
LOC: ER 10:25
DX: R11.2 Nausea with vomiting, unspecified (principal); I10 Essential (primary) hypertension; Z79.899 Other long term (current) drug therapy
CPT/HCPCS: 36415; 80048; 80076; 81000; 81001; 83690; 85025; 96361; 96374; 96375; 99283; J1885; J2405; A4663; J7030

== ENCOUNTER 2019-11-18 14:28 | Emergency (ER) | payer MEDICARE ==
[~2019-11-18] VITALS: Ht 160 cm; Wt 77.1 kg
--- NOTE | 2019-11-18 14:50 | NUR ---
Patient ambulated with stable gait. Speech is clear, speaks in complete sentences. A/Ox4. Patient was seen here yesterday for similar issues. Abd pain, n/v. Bowel sounds avail in all quads. Respiratory even and unlabored, no cough no sob. Denies any cp.
[2019-11-18] MEDS ORDERED: IV NORMAL SALINE 1000 ML BAG IV ONE (15:00)
[2019-11-18] MEDS ORDERED: HALOPERIDOL LACTATE 5 MG/1 ML VIAL IV ONE (15:00)
[2019-11-18] MEDS ORDERED: ONDANSETRON 4 MG/2 ML VIAL IV ONE (15:00)
[2019-11-18 15:27] LABS: BASOPHILS % (AUTO) 0.3 % (0.0-2.0); HEMOGLOBIN 14.8 g/dL (10.9-14.3); LYMPHOCYTES # (AUTO) 0.9 K/uL (20.0-40.0); MEAN CORPUSCULAR HEMOGLOBIN 30.1 uug (24.7-32.8); MEAN CORPUSCULAR HGB CONC 33 g/dL (32.3-35.6); MEAN CORPUSCULAR VOLUME 91.5 fL (75.5-95.3); MONOCYTES # (AUTO) 0.7 K/uL (2.0-10.0); MONOCYTES % (AUTO) 6.5 % (0.0-11.0); NEUTROPHILS # (AUTO) 9.5 K/uL (1.8-8.9); NEUTROPHILS % (AUTO) 85.2 % (38.5-71.5); PLATELET COUNT (AUTO) 182 K/uL (179-408); RED BLOOD CELL COUNT(AUTO) 4.91 MIL/uL (3.63-4.92); WHITE BLOOD COUNT (AUTO) 11.1 K/uL (3.8-11.8)
[2019-11-18 15:35] LABS: CREATININE 1.4 mg/dL (0.6-1.3); POTASSIUM 3.2 mmol/L (3.5-5.1)
[2019-11-18] MEDS ORDERED: ONDANSETRON 4 MG/2 ML VIAL ONE (15:37)
[2019-11-18] MEDS ORDERED: HALOPERIDOL LACTATE 5 MG/1 ML VIAL ONE (15:37)
[2019-11-18 15:42] LABS: BILIRUBIN,DIRECT 0.2 mg/dL (0.0-0.2); BILIRUBIN,TOTAL 0.7 mg/dL (0.2-1.0); TOTAL PROTEIN, SERUM 8.1 g/dL (6.4-8.2)
[2019-11-18] MEDS ORDERED: IOHEXOL 300MG/ML 100 ML INFUS..BTL ONE (16:02)
[2019-11-18] MEDS ORDERED: IV NORMAL SALINE 250 ML IV ONE (16:02)
[2019-11-18] MEDS ORDERED: SWABABLE VALVE TRANSFER SET EA MC ONE (16:02)
[2019-11-18] MEDS ORDERED: IV 1/2 NS + KCL 20 MEQ BAG 1,000 ML IV ONE (17:05)
--- NOTE | 2019-11-18 18:18 | NUR ---
Dr. Singh from [facility] on the line with ERMD
--- NOTE | 2019-11-18 19:15 | NUR ---
PT HAND OFF AND SBAR RECEIVED FR OUTGOING DAY SHIFT RN
--- NOTE | 2019-11-18 19:33 | NUR ---
Karen from [facility] provided xfer info. Patient will be going to [facility], M/S room [address] Samantha URENA transport ETA [id number]
--- NOTE | 2019-11-18 19:43 | NUR ---
Report given to SOLO Maria at [facility]
--- NOTE | 2019-11-18 21:56 | NUR ---
TRANSPORT AT BEDSIDE. PT NAD W/ G22 TO L WRIST INTACT AND INFUSING WELL RA VIA [facility] PT AMBULATORY
--- NOTE | 2019-11-26 07:06 | NUR ---
LATE ENTRY:(FOR 11/18/19 4105) PT WAS TRANSPORTED WITH W/ G22 TO L WRIST INTACT AND INFUSING WELL (SODIUM CHLORIDE AND KCL)
== END 2019-11-18 22:09 | disposition short-term general hospital (02) ==
LOC: ER 14:30
DX: K85.90 Acute pancreatitis without necrosis or infection, unspecified (principal); R11.2 Nausea with vomiting, unspecified; N28.9 Disorder of kidney and ureter, unspecified; E87.6 Hypokalemia; I10 Essential (primary) hypertension; F12.10 Cannabis abuse, uncomplicated; Z79.899 Other long term (current) drug therapy
CPT/HCPCS: 36415; 74177; 80048; 80076; 83690; 85025; 96361; 96365; 96366; 96375; 99285; J1630; J2405; J3490; Q9967; A4663; J7050

== ENCOUNTER 2020-01-08 19:03 | Emergency (ER) | payer MEDICARE ==
[~2020-01-08] VITALS: Ht 160 cm; Wt 77.1 kg
[2020-01-08] MEDS ORDERED: ATOR20TA27 PO (19:29)
--- NOTE | 2020-01-08 20:16 | NUR ---
PT WALKED IN TO ER IN STABLE CONDITION W/STEADY GAIT C/O ABD PAIN SINCE 3 AM THIS MORNING .PT STATES SHE HAD SOUP LAST NIGHT AND WOKE UP W /ABD CRAMPS ACCOMPANIED BY N/V/D.
[2020-01-08] MEDS ORDERED: IV NORMAL SALINE 1000 ML BAG IV ONE (20:30)
[2020-01-08] MEDS ORDERED: MAG HYDROX/AL HYDROX/SIMETH 30 ML LIQUID UDC PO ONE (20:30)
[2020-01-08] MEDS ORDERED: DICYCLOMINE HCL LIQ 10 MG/5 ML UDC PO ONE (20:30)
[2020-01-08] MEDS ORDERED: ONDANSETRON 4 MG/2 ML VIAL IV ONE ×2 (20:30→22:00)
[2020-01-08] MEDS ORDERED: LIDOCAINE VISCUS 2% 15 ML UDC MM ONE (20:30)
[2020-01-08] MEDS ORDERED: LIDOCAINE VISCUS 2% 15 ML UDC ONE (20:37)
[2020-01-08] MEDS ORDERED: MAG HYDROX/AL HYDROX/SIMETH 30 ML LIQUID UDC ONE (20:37)
[2020-01-08] MEDS ORDERED: DICYCLOMINE HCL LIQ 10 MG/5 ML UDC ONE (20:37)
[2020-01-08 20:45] LABS: BASOPHILS % (AUTO) 0.4 % (0.0-2.0); CREATININE 1.2 mg/dL (0.6-1.3); HEMATOCRIT 46.9 % (31.2-41.9); HEMOGLOBIN 15.9 g/dL (10.9-14.3); LYMPHOCYTES # (AUTO) 0.5 K/uL (20.0-40.0); LYMPHOCYTES % (AUTO) 4.4 % (20.5-51.5); MEAN CORPUSCULAR HEMOGLOBIN 30.8 uug (24.7-32.8); MEAN CORPUSCULAR HGB CONC 34 g/dL (32.3-35.6); MONOCYTES # (AUTO) 0.2 K/uL (2.0-10.0); NEUTROPHILS # (AUTO) 10.3 K/uL (1.8-8.9); NEUTROPHILS % (AUTO) 93.2 % (38.5-71.5); PLATELET COUNT (AUTO) 205 K/uL (179-408); POTASSIUM 2.9 mmol/L (3.5-5.1); RED BLOOD CELL COUNT(AUTO) 5.15 MIL/uL (3.63-4.92)
[2020-01-08 20:51] LABS: BILIRUBIN,DIRECT 0.1 mg/dL (0.0-0.2); BILIRUBIN,TOTAL 0.6 mg/dL (0.2-1.0); TOTAL PROTEIN, SERUM 8.6 g/dL (6.4-8.2)
[2020-01-08 21:02] LABS: ETHANOL < 3 MG/DL (0-0)
--- NOTE | 2020-01-08 21:06 | NUR ---
Pt sleeping in bed , no acute distress noted. Pt states the pain has decreased to 4/10
[2020-01-08] MEDS ORDERED: MORPHINE SULFATE 4 MG/1 ML DISP.SYRIN IV ONE (22:00)
[2020-01-08] MEDS ORDERED: MORPHINE SULFATE 4 MG/1 ML DISP.SYRIN ONE (22:06)
[2020-01-08] MEDS ORDERED: ONDANSETRON 4 MG/2 ML VIAL ONE (22:06)
--- NOTE | 2020-01-08 22:13 | NUR ---
PATIENT NOTED WITH 2 EPISODES OF EMESIS, ALSO C/O ABD PAIN. ER MD IS AWARE. PATIENT MEDICATED PER ER MD ORDER.
[2020-01-08] MEDS ORDERED: POTASSIUM CHLORIDE 20 MEQ TAB.PRT.SR PO ONE (22:15)
[2020-01-08] MEDS ORDERED: MAGNESIUM SULFATE/D5W 200 ML ONE (22:15)
[2020-01-08] MEDS ORDERED: POTASSIUM CHLORIDE 20 MEQ TAB.PRT.SR ONE (22:17)
[2020-01-08] MEDS: MAGNESIUM SULFATE/D5W 100 ML IV SCH ×2 (22:26→23:18)
--- NOTE | 2020-01-08 22:27 | NUR ---
PER DR VÁSQUEZ, THE PATIENT IS TO HAVE 2GM OF IV MAGNESIUM OVER 1 HOUR. 30 MINUTES PER 1GM BAG. THIS ORDER WAS CONFIRMED WITH THE ER MD AND HIS INSTRUCTIONS ARE PREVIOUSLY STATED.
--- NOTE | 2020-01-08 22:50 | NUR ---
PATIENT IN BED, VSS. NO ACUTE DISTRESS NOTED. ALL PATIENT NEEDS ATTENDED AND MET. PATIENT IS PROVIDED WITH A PLAN OF CARE UPDATE. SHE IS AWARE OF ONGOING PLAN OF CARE.
--- NOTE | 2020-01-08 23:16 | NUR ---
Patient back from CT at this time. no acute distress noted. VSS
--- NOTE | 2020-01-09 00:03 | NUR ---
pt in bed , no acute distress.
[2020-01-09 00:53] VITALS: BP 161/87
--- NOTE | 2020-01-09 00:53 | NUR ---
Patient discharged to home in stable conditon. Written and verbal after care instructions given. Patient verbalizes understanding of instructions. Ambulated from ER with stable gait. All belongings with patient. PIV removed prior to d/c. Patient driven home by taxi.
== END 2020-01-09 00:54 | disposition home or self-care (01) ==
LOC: ER 19:03
DX: R10.13 Epigastric pain (principal); R11.10 Vomiting, unspecified; K43.9 Ventral hernia without obstruction or gangrene; E87.6 Hypokalemia; I10 Essential (primary) hypertension; Z90.49 Acquired absence of other specified parts of digestive tract; Z79.899 Other long term (current) drug therapy
CPT/HCPCS: 36415 ×2; 74176; 80048; 80076; 83605 ×2; 83690; 85025; 93005; 96365; 96375; 96376; 99285; G0480; J2270; J2405; J3475; A4663; J7030

== ENCOUNTER 2020-04-16 01:31 | Emergency (ER) | payer MEDICARE ==
[~2020-04-16] VITALS: Ht 160 cm; Wt 76.7 kg
[~2020-04-16 01:31] MED LIST changes: +ATOR20TA27 PO; -CHOL4PAC6 PO; -HYDR-3326 PO; -ONDA4TAB8 PO; -PANT40TA4 PO
--- NOTE | 2020-04-16 01:50 | NUR ---
Patient ambulated with stable gait. A/OX4. Speech is clear, speaks in complete sentences. No acute neuro deficits noted. Patient came for c/o n/v. Respiratory even and unlabored, no cough no sob. No cardiovascular distress notd, all pulses palpable.
[2020-04-16] MEDS ORDERED: ONDANSETRON 4 MG/2 ML VIAL ONE (02:03)
[2020-04-16 02:14] LABS: HEMATOCRIT 45.9 % (31.2-41.9); HEMOGLOBIN 15.3 g/dL (10.9-14.3); LYMPHOCYTES # (AUTO) 0.3 K/uL (20.0-40.0); LYMPHOCYTES % (AUTO) 2.1 % (20.5-51.5); MEAN CORPUSCULAR HEMOGLOBIN 31.1 uug (24.7-32.8); MEAN CORPUSCULAR HGB CONC 33 g/dL (32.3-35.6); MEAN CORPUSCULAR VOLUME 93.2 fL (75.5-95.3); MONOCYTES # (AUTO) 0.2 K/uL (2.0-10.0); MONOCYTES % (AUTO) 1.4 % (0.0-11.0); NEUTROPHILS # (AUTO) 12.8 K/uL (1.8-8.9); NEUTROPHILS % (AUTO) 96.5 % (38.5-71.5); PLATELET COUNT (AUTO) 179 K/uL (179-408); RED BLOOD CELL COUNT(AUTO) 4.92 MIL/uL (3.63-4.92); WHITE BLOOD COUNT (AUTO) 13.3 K/uL (3.8-11.8)
[2020-04-16] MEDS ORDERED: MORPHINE SULFATE 4 MG/1 ML DISP.SYRIN IV ONE (02:15)
[2020-04-16] MEDS ORDERED: IV NS 1000 ML 1,000 ML IV ONE (02:15)
[2020-04-16 02:18] LABS: POTASSIUM 3.2 mmol/L (3.5-5.1)
[2020-04-16 02:25] LABS: BILIRUBIN,DIRECT 0.1 mg/dL (0.0-0.2); BILIRUBIN,TOTAL 0.7 mg/dL (0.2-1.0); TOTAL PROTEIN, SERUM 8.4 g/dL (6.4-8.2)
[2020-04-16] MEDS ORDERED: ONDANSETRON 4 MG/2 ML VIAL IM ONE (02:30)
[2020-04-16 02:43] LABS: ETHANOL < 3 MG/DL (0-0)
[2020-04-16] MEDS ORDERED: MAGNESIUM SULFATE 1 GM/2 ML VIAL ONE (03:01)
[2020-04-16] MEDS: MAGNESIUM SULFATE/D5W 100 ML IV SCH ×2 (03:07→03:37)
[2020-04-16] MEDS ORDERED: MORPHINE SULFATE 4 MG/1 ML DISP.SYRIN ONE (03:31)
[2020-04-16] MEDS ORDERED: METOCLOPRAMIDE HCL 10 MG/2 ML VIAL ONE (04:24)
[2020-04-16 04:26] LABS: *BILIRUBIN,URIN NEGATIVE (NEGATIVE); *CLARITY,URINE CLEAR (CLEAR); *COLOR,URINE YELLOW (YELLOW); *KETONES,URINE NEGATIVE (NEGATIVE); *UROBILINOGEN,URINE 0.2 E.U./dl (NORMAL); LEUKOCYTE ESTERASE ,URINE NEGATIVE (NEGATIVE); NITRITE, URINE NEGATIVE (NEGATIVE); UGLUCOSE NEGATIVE (NEGATIVE)
[2020-04-16 04:38] LABS: *BLOOD, URINE TRACE (NEGATIVE)
[2020-04-16 04:39] LABS: BACTERIA,URINE NONE SEEN /HPF (NONE SEEN); SQUAMOUS EPITHELIAL CELL,UR NONE SEEN /HPF (NONE SEEN); WBC,URINE NONE SEEN /HPF (0-3)
[2020-04-16 04:50] LABS: *AMPHETAMINE, URINE NEGATIVE (NEGATIVE); *BARBITURATE, URINE NEGATIVE (NEGATIVE); *CANNABINOID, URINE POSITIVE (NEGATIVE); *COCCAINE, URINE NEGATIVE (NEGATIVE); *OPIATE, URINE NEGATIVE (NEGATIVE); *PHENCYCLIDINE SCREEN,URINE NEGATIVE (NEGATIVE)
[2020-04-16] MEDS ORDERED: METOCLOPRAMIDE HCL 10 MG/2 ML VIAL IV ONE (05:15)
--- NOTE | 2020-04-16 06:06 | NUR ---
Swallow test initiated.
--- NOTE | 2020-04-16 06:15 | NUR ---
MSE COMPLETED. ALL MEDS/IV FLUIDS ADMINISTERED, PT STATED NO NAUSEA/PAIN. IV D/C'D INTACT. PT GIVEN ACI/RX X1. PT AMBULATED W/O DIFF/TOOK ALL BELONGINGS.
[2020-04-16 06:16] VITALS: BP 110/82
== END 2020-04-16 06:17 | disposition home or self-care (01) ==
LOC: ER 01:36
DX: R11.2 Nausea with vomiting, unspecified (principal); R10.9 Unspecified abdominal pain; I10 Essential (primary) hypertension; Z87.19 Personal history of other diseases of the digestive system; R00.0 Tachycardia, unspecified; E87.6 Hypokalemia; D72.829 Elevated white blood cell count, unspecified
CPT/HCPCS: 36415; 80048; 80076; 80307 ×2; 81001; 83605 ×2; 83690; 85025; 93005; 96361; 96365; 96375; 99284; J2270; J2405; J2765; J3475; J7060; A4663; J7030

== ENCOUNTER 2020-07-09 22:44 | Emergency (ER) | payer MEDICARE ==
[~2020-07-09] VITALS: Ht 160 cm; Wt 76.2 kg
--- NOTE | 2020-07-09 23:17 | NUR ---
REMOVED INSECT FROM LEFT EAR WITH STERILE WATER FLUSH, PT D/C'D HOME ACI GIVEN. PT AMBULATED W/O DIFF, TOOK ALL BELONGINGS.
[2020-07-09 23:20] VITALS: BP 144/82
== END 2020-07-09 23:21 | disposition home or self-care (01) ==
LOC: ER 22:44
PROC: 09C47ZZ Extirpation of Matter from Left External Auditory Canal, Via Natural or Artificial Opening (ICD-10-PCS; principal; 2020-07-09)
DX: T16.2XXA Foreign body in left ear, initial encounter (principal); X58.XXXA Exposure to other specified factors, initial encounter; Y92.89 Other specified places as the place of occurrence of the external cause; I10 Essential (primary) hypertension; Z87.19 Personal history of other diseases of the digestive system; Z79.899 Other long term (current) drug therapy
CPT/HCPCS: A4663

== ENCOUNTER 2020-12-30 15:54 | Inpatient (IN) | payer MEDICARE ==
[~2020-12-30] VITALS: Ht 160 cm; Wt 76.2 kg
[~2020-12-30 15:54] MED LIST changes: +AMLO10TA59 PO; -AMLO10TA7 PO
[2020-12-30] MEDS ORDERED: ONDANSETRON 4 MG/2 ML VIAL IV ONE (16:30)
[2020-12-30] MEDS ORDERED: ACETAMINOPHEN ES 500 MG TABLET PO ONE (16:30)
[2020-12-30] MEDS ORDERED: IV NORMAL SALINE 1000 ML BAG IV ONE (16:30)
[2020-12-30 16:32] LABS: BASOPHILS % (AUTO) 0.2 % (0.0-2.0); EOSINOPHILS # (AUTO) 0.1 K/uL (0.0-0.7); EOSINOPHILS % (AUTO) 0.5 % (0.0-7.0); HEMOGLOBIN 16.8 g/dL (10.9-14.3); LYMPHOCYTES # (AUTO) 1.1 K/uL (20.0-40.0); LYMPHOCYTES % (AUTO) 7.9 % (20.5-51.5); MEAN CORPUSCULAR HEMOGLOBIN 31.2 uug (24.7-32.8); MEAN CORPUSCULAR HGB CONC 33 g/dL (32.3-35.6); MEAN CORPUSCULAR VOLUME 94.9 fL (75.5-95.3); MONOCYTES # (AUTO) 0.6 K/uL (2.0-10.0); MONOCYTES % (AUTO) 4.3 % (0.0-11.0); NEUTROPHILS % (AUTO) 87.1 % (38.5-71.5); PLATELET COUNT (AUTO) 190 K/uL (179-408); RED BLOOD CELL COUNT(AUTO) 5.37 MIL/uL (3.63-4.92); WHITE BLOOD COUNT (AUTO) 13.8 K/uL (3.8-11.8)
[2020-12-30] MEDS ORDERED: ACETAMINOPHEN ES 500 MG TABLET ONE (16:34)
[2020-12-30] MEDS ORDERED: ONDANSETRON 4 MG/2 ML VIAL ONE (16:34)
[2020-12-30 16:47] LABS: CREATININE 1.4 mg/dL (0.6-1.3); POTASSIUM 3.6 mmol/L (3.5-5.1)
[2020-12-30 16:53] LABS: BILIRUBIN,DIRECT 0.2 mg/dL (0.0-0.2); BILIRUBIN,TOTAL 0.7 mg/dL (0.2-1.0); TOTAL PROTEIN, SERUM 8.4 g/dL (6.4-8.2)
--- NOTE | 2020-12-30 18:30 | NUR ---
PT SAYS THAT THE NAUSEA HAS RESOLVED. Addendum: 12/30/20 at 1853 by MAIKOL PT STILL CANNOT TOLERATE ANY PO FLUID AT THIS TIME.
--- NOTE | 2020-12-30 18:40 | NUR ---
DR. DE LA O ADMITTED THE PT, TRANSFER TO FLOOR PENDING ON BED AVAILABILITY.
[2020-12-30 18:55] LABS: *AMPHETAMINE, URINE NEGATIVE (NEGATIVE); *CANNABINOID, URINE POSITIVE (NEGATIVE); *COCCAINE, URINE NEGATIVE (NEGATIVE); *OPIATE, URINE NEGATIVE (NEGATIVE); *PHENCYCLIDINE SCREEN,URINE NEGATIVE (NEGATIVE)
--- NOTE | 2020-12-30 19:30 | NUR ---
Med/surg/telemetry floor contacted for room and to give report for patient, SOLO Patel states room will be 301B. SOLO Patel states she will call back to receive report.
--- NOTE | 2020-12-30 20:41 | NUR ---
Report given to SOLO Stover. Patient will be going to room 301B.
[2020-12-30] MEDS ORDERED: MORPHINE SULFATE 2 MG/1 ML DISP.SYRIN IV PRN (21:00)
[2020-12-30] MEDS ORDERED: ENALAPRILAT DIHYDRATE 1.25 MG/1 ML VIAL IV PRN (21:00)
[2020-12-30] MEDS ORDERED: ACETAMINOPHEN 650 MG SUPP.RECT RC PRN (21:00)
--- NOTE | 2020-12-30 21:02 | NUR ---
Pt. admitted to room 301B, under care of Dr. Cabrera. Belongs List completed, patient is ambulatory and transferred upstairs via wheelchair with all personal belongings.
[2020-12-30] MEDS: ONDANSETRON 4 MG/2 ML VIAL IV PRN (21:32)
[2020-12-30] MEDS: POTASSIUM CHLORIDE 20 MEQ in IV D5 1/2 NS 1000 ML 1,000 ML IV PRN (21:57)
[2020-12-30 22:04] VITALS: BP 146/99
[2020-12-30 23:40] LABS: *BILIRUBIN,URIN NEGATIVE (NEGATIVE); *CLARITY,URINE CLEAR (CLEAR); *COLOR,URINE YELLOW (YELLOW); *KETONES,URINE 1+ (NEGATIVE); *UROBILINOGEN,URINE 0.2 E.U./dl (NORMAL); LEUKOCYTE ESTERASE ,URINE NEGATIVE (NEGATIVE); NITRITE, URINE NEGATIVE (NEGATIVE); UGLUCOSE NEGATIVE (NEGATIVE)
[2020-12-30 23:49] LABS: *BLOOD, URINE TRACE (NEGATIVE)
[2020-12-30 23:55] LABS: BACTERIA,URINE FEW /HPF (NONE SEEN); WBC,URINE 0-3 /HPF (0-3)
[2020-12-30 23:57] LABS: SQUAMOUS EPITHELIAL CELL,UR MODERATE /HPF (NONE SEEN)
[2020-12-31] VITALS: BP 152/87
[2020-12-31] MEDS: ONDANSETRON 4 MG/2 ML VIAL IV PRN ×3 (01:26→10:14)
--- NOTE | 2020-12-31 03:22 | NUR ---
Pt received 12/30/20 at 2105H. Pt was stable upon arrival from ER. Denies pain or SOB, c/o nausea and vomiting. Assessment complete upon admission and all belongings accounted for, patient is Telemetry status and is ST at 105 bpm. Given zofran periodically for nausea, pt tolerates medication well. Pt is ambulatory and is able to make needs known. AOx4. Pt is NPO since admission. Skin is intact. No other issues or concerns at this time.
[2020-12-31 04:00] VITALS: BP 162/97
[2020-12-31 07:15] LABS: BASOPHILS % (AUTO) 0.1 % (0.0-2.0); HEMATOCRIT 47.3 % (31.2-41.9); HEMOGLOBIN 15.9 g/dL (10.9-14.3); LYMPHOCYTES % (AUTO) 8.9 % (20.5-51.5); MEAN CORPUSCULAR HGB CONC 34 g/dL (32.3-35.6); MONOCYTES # (AUTO) 0.6 K/uL (2.0-10.0); MONOCYTES % (AUTO) 5.8 % (0.0-11.0); NEUTROPHILS # (AUTO) 9.2 K/uL (1.8-8.9); NEUTROPHILS % (AUTO) 85.2 % (38.5-71.5); PLATELET COUNT (AUTO) 167 K/uL (179-408); RED BLOOD CELL COUNT(AUTO) 4.97 MIL/uL (3.63-4.92); WHITE BLOOD COUNT (AUTO) 10.7 K/uL (3.8-11.8)
--- NOTE | 2020-12-31 07:30 | NUR ---
RECEIVED REPORT ON PT, RESTING IN BED. PT ON ROOM AIR, SATURATING AT 100%, NO SIGNS OF DISTRESS NOTED, NO REPORTS OF PAIN. AWAKE ALERT AND ORIENTED X4, PT ON TELE MONITOR SINUS RHYTHM. PT IS AMBULATORY, HAS STEADY GAIT, BRP. IV ACCESS ON THE LEFT HAND 22 G, IV PATENT, NO SIGNS OF INFILTRATION, IVF INFUSING D5 1/2NS+20KCL AT 90CC. BED IN LOW AND LOCKED POSITION, CALL LIGHT WITHIN REACH, SAFETY PRECAUTIONS IN PLACE. WILL CONTINUE TO MONITOR.
[2020-12-31 07:50] LABS: BILIRUBIN,TOTAL 0.8 mg/dL (0.2-1.0); POTASSIUM 3.1 mmol/L (3.5-5.1); TOTAL PROTEIN, SERUM 7.7 g/dL (6.4-8.2)
[2020-12-31 08:13] VITALS: BP 132/81
[2020-12-31] MEDS: PANTOPRAZOLE SODIUM 40 MG VIAL IV SCH (08:19)
[2020-12-31 08:32] LABS: THYROID STIMULATING HORMONE 0.414 mIU/mL (0.358-3.740)
[2020-12-31] MEDS ORDERED: POTASSIUM CHLORIDE 50 ML IV SCH (09:15)
[2020-12-31] MEDS: ENOXAPARIN SODIUM 40 MG/0.4 ML DISP.SYRIN SQ SCH (10:03)
[2020-12-31] MEDS: POTASSIUM CHLORIDE 20 MEQ in IV D5 1/2 NS 1000 ML 1,000 ML IV PRN ×2 (10:51→22:21)
[2020-12-31] MEDS ORDERED: POTASSIUM CHLORIDE 20 MEQ TAB.PRT.SR PO ONE (11:00)
[2020-12-31 11:22] VITALS: BP 149/78
[2020-12-31] MEDS: AMLODIPINE 10 MG TABLET PO SCH (11:34)
[2020-12-31] MEDS ORDERED: NEUTRA PHOS PACKET PO ONE (14:45)
[2020-12-31 15:18] VITALS: BP 150/98
--- NOTE | 2020-12-31 18:29 | NUR ---
EOS: PT RESTING IN BED. PT ON ROOM AIR, SATURATING AT 198%, NO SIGNS OF DISTRESS NOTED, NO REPORTS OF PAIN. AWAKE ALERT AND ORIENTED X4, PT ON TELE MONITOR SINUS RHYTHM. PT IS AMBULATORY, HAS STEADY GAIT, BRP. IV ACCESS ON THE LEFT HAND 22 G, IV PATENT, NO SIGNS OF INFILTRATION, IVF INFUSING D5 1/2NS+20KCL AT 90CC. ALL MEDICATIONS GIVEN ORDERED, PT ABLE TO COMMUNICATE NEEDS, ALL NEEDS MET THIS SHIFT. PT ON CLEAR LIQUID DIET, TOLERATING WELL. BED IN LOW AND LOCKED POSITION, CALL LIGHT WITHIN REACH, SAFETY PRECAUTIONS IN PLACE. WILL ENDORSE TO ONCOMING NURSE.
[2020-12-31 19:34] VITALS: BP_SYST 117; BP_SYST 140; BP_DIAS 53; BP_DIAS 81
[2020-12-31] MEDS ORDERED: ATORVASTATIN 20 MG TABLET PO SCH (21:00)
[2021-01-01 00:18] VITALS: BP 122/86
[2021-01-01 05:05] VITALS: BP 104/66
--- NOTE | 2021-01-01 06:26 | NUR ---
Pt slept throughout the night. Denies having N/V. Denies pain or SOB. Pt is SR on tele. Is able to make needs known. Bed is locked and in lowest position, call light is within reach. IV site is patent and prescribed fluids are running. No other issues or concerns at this time. Will endorse to day shift.
[2021-01-01 07:00] LABS: BASOPHILS % (AUTO) 0.2 % (0.0-2.0); EOSINOPHILS % (AUTO) 0.3 % (0.0-7.0); HEMATOCRIT 41.7 % (31.2-41.9); HEMOGLOBIN 13.9 g/dL (10.9-14.3); LYMPHOCYTES # (AUTO) 1.6 K/uL (20.0-40.0); LYMPHOCYTES % (AUTO) 22.8 % (20.5-51.5); MEAN CORPUSCULAR HGB CONC 33 g/dL (32.3-35.6); MEAN CORPUSCULAR VOLUME 95.8 fL (75.5-95.3); MONOCYTES # (AUTO) 0.5 K/uL (2.0-10.0); MONOCYTES % (AUTO) 7.3 % (0.0-11.0); NEUTROPHILS # (AUTO) 4.8 K/uL (1.8-8.9); NEUTROPHILS % (AUTO) 69.4 % (38.5-71.5); PLATELET COUNT (AUTO) 125 K/uL (179-408); RED BLOOD CELL COUNT(AUTO) 4.35 MIL/uL (3.63-4.92); WHITE BLOOD COUNT (AUTO) 6.8 K/uL (3.8-11.8)
[2021-01-01 07:21] LABS: MAGNESIUM 1.9 mg/dL (1.8-2.4); PHOSPHOROUS 2.5 mg/dL (2.5-4.9); POTASSIUM 3.7 mmol/L (3.5-5.1)
--- NOTE | 2021-01-01 07:30 | NUR ---
REPORT RECEIVED FROM TEXTILE COLORIST DYER, PT IN BED RESTING, PT ABLE TO COMMUNICATE NEEDS, ON TELE MONITOR SR/ST. PT AWAKE ALERT AND ORIENTED X4, ON ROOM AIR SATURATING AT 98%, NO SIGNS OR SYMPTOMS OF DISTRESS NOTED, NO REPORTS OF PAIN NOTED. PT HAS BRP, IV ACCESS ON THE RIGHT HAND 20G IVF INFUSING D5 1/2NS+20KCL AT 90CC, IV PATENT, NO SIGNS OF INFILTRATION NOTED. BED IN LOW AND LOCKED POSITION, CALL LIGHT WITHIN REACH, SAFETY PRECAUTIONS IN PLACE, WILL CONTINUE TO MONITOR.
[2021-01-01 08:00] VITALS: BP 137/80
[2021-01-01] MEDS: AMLODIPINE 10 MG TABLET PO SCH (08:30)
[2021-01-01] MEDS: PANTOPRAZOLE SODIUM 40 MG VIAL IV SCH (08:31)
[2021-01-01] MEDS: ENOXAPARIN SODIUM 40 MG/0.4 ML DISP.SYRIN SQ SCH (08:32)
[2021-01-01] MEDS: POTASSIUM CHLORIDE 20 MEQ in IV D5 1/2 NS 1000 ML 1,000 ML IV PRN (09:41)
[2021-01-01 11:40] VITALS: BP 106/56
[2021-01-01 15:19] VITALS: BP 109/77
--- NOTE | 2021-01-01 15:25 | NUR ---
PT DISCHARGED HOME VIA PRIVATE CARE ACCOMPANIED BY MAYRA CARSON. PT IS ABLE TO COMMUNICATE NEEDS, ALL NEEDS MET THIS SHIFT, ALL MEDICATIONS GIVEN ORDERED. IV/TELE MONITOR/ID BAND REMOVED PRIOR TO DISCHARGE. AWAKE ALERT AND ORIENTED X4. PT ON ROOM AIR SATURATING AT 95%, NO SIGNS OR SYMPTOMS OF DISTRESS NOTED, NO REPORTS OF PAIN NOTED, NO SIGNS OR SYMPTOMS OF EMESIS/NAUSEA. PT TAKEN DOWN IN WHEELCHAIR WITH ALL BELONGINGS, PAPERWORK AND PRESCRIPTIONS.
== END 2021-01-01 15:25 | disposition home or self-care (01) | DRG 438 ==
LOC: ER 15:56 → MEDSURG3 20:57 → TELE3 01-01 02:27
PROVIDERS: ADMIT Nurse Practitioner Acute Care; ATTEND Nurse Practitioner Acute Care
DX: K85.90 Acute pancreatitis without necrosis or infection, unspecified (principal); N17.0 Acute kidney failure with tubular necrosis; I10 Essential (primary) hypertension; E78.5 Hyperlipidemia, unspecified; E83.52 Hypercalcemia; E86.0 Dehydration; E87.6 Hypokalemia; D72.829 Elevated white blood cell count, unspecified; Z20.822 Contact with and (suspected) exposure to COVID-19
CPT/HCPCS: 36415; 70030-TC; 71045; 83690; 83735; 83970; 84100; 84443; 85025; 87086; 93005; A4663; A9150; C9113; G0378; J1650; J2405; J3480; J3490; J7030; J7040

== ENCOUNTER 2021-04-25 17:09 | Inpatient (IN) | payer MEDICARE ==
[~2021-04-25] VITALS: Ht 160 cm; Wt 75.7 kg
[2021-04-25] MEDS ORDERED: ONDANSETRON 4 MG/2 ML VIAL IV ONE (17:45)
[2021-04-25] MEDS ORDERED: IV NORMAL SALINE 1000 ML BAG IV ONE (17:45)
[2021-04-25] MEDS ORDERED: LABETALOL HCL 100 MG/20 ML VIAL IV ONE ×2 (17:45→18:45)
[2021-04-25] MEDS ORDERED: LABETALOL HCL 100 MG/20 ML VIAL ONE ×2 (17:57→18:50)
[2021-04-25] MEDS ORDERED: ONDANSETRON 4 MG/2 ML VIAL ONE (17:57)
[2021-04-25 18:07] LABS: HEMATOCRIT 46.6 % (31.2-41.9); MEAN CORPUSCULAR HEMOGLOBIN 30.9 uug (24.7-32.8); MEAN CORPUSCULAR VOLUME 94.6 fL (75.5-95.3); PLATELET COUNT (AUTO) 176 K/uL (179-408)
[2021-04-25 18:15] LABS: BILIRUBIN,DIRECT 0.2 mg/dL (0.0-0.2); BILIRUBIN,TOTAL 0.6 mg/dL (0.2-1.0); CREATININE 1.1 mg/dL (0.6-1.3); POTASSIUM 3.2 mmol/L (3.5-5.1)
[2021-04-25 18:35] LABS: *BILIRUBIN,URIN NEGATIVE (NEGATIVE); *BLOOD, URINE 1+ (NEGATIVE); *CLARITY,URINE CLEAR (CLEAR); *COLOR,URINE YELLOW (YELLOW); *KETONES,URINE NEGATIVE (NEGATIVE); *UROBILINOGEN,URINE 0.2 E.U./dl (NORMAL); LEUKOCYTE ESTERASE ,URINE NEGATIVE (NEGATIVE); NITRITE, URINE NEGATIVE (NEGATIVE); UGLUCOSE NEGATIVE (NEGATIVE)
--- NOTE | 2021-04-25 18:38 | NUR ---
Patient out for ct scan via gurny.
[2021-04-25] MEDS ORDERED: POTASSIUM CHLORIDE 20 MEQ TAB.PRT.SR PO ONE (18:45)
[2021-04-25] MEDS ORDERED: POTASSIUM CHLORIDE 20 MEQ TAB.PRT.SR ONE (18:50)
--- NOTE | 2021-04-25 18:52 | NUR ---
Patient back from ct scan with no distress.
--- NOTE | 2021-04-25 19:58 | NUR ---
Called for room, patient will be going to telemetry room 320.
--- NOTE | 2021-04-25 20:53 | NUR ---
Report given to SOLO Kelly.
--- NOTE | 2021-04-25 21:06 | NUR ---
Pt. admitted to telemetry room 320, under care of Dr. Cabrera Belongs List completed
[2021-04-25] MEDS ORDERED: POTASSIUM CHLORIDE 20 MEQ in IV D5 1/2 NS 1000 ML 1,000 ML IV PRN (21:45)
[2021-04-25] MEDS ORDERED: MORPHINE SULFATE 2 MG/1 ML DISP.SYRIN IV PRN (21:45)
[2021-04-25] MEDS ORDERED: ACETAMINOPHEN 650 MG SUPP.RECT RC PRN (21:45)
[2021-04-25 21:59] LABS: BACTERIA,URINE FEW /HPF (NONE SEEN); MUCUS,URINE FEW /LPF (0-FEW); SQUAMOUS EPITHELIAL CELL,UR FEW /HPF (NONE SEEN)
[2021-04-25] MEDS ORDERED: MEROPENEM 500 MG VIAL IV ONE (21:59)
[2021-04-25] MEDS ORDERED: MEROPENEM 0.5 G in IV NORMAL SALINE 50 ML IV SCH (22:00)
[2021-04-25] MEDS ORDERED: IV D5W-0.45% NS +20 KCL 1,000 ML IV ONE (22:07)
[2021-04-25 22:16] VITALS: BP 158/94
[2021-04-25] MEDS: IV D5 1/2 NS 1000 ML 1,000 ML IV PRN (22:38)
[2021-04-25] MEDS ORDERED: MEROPENEM 1GM/NS 100ML IVPB **ER PYXIS ONLY IV ONE (22:50)
[2021-04-25] MEDS ORDERED: MEROPENEM 1 G in IV NORMAL SALINE 100 ML IV SCH (23:00)
[2021-04-26] VITALS (7 sets, daily range): BP systolic 148–171; BP diastolic 79–99
[2021-04-26 06:23] LABS: HEMATOCRIT 45.2 % (31.2-41.9); MEAN CORPUSCULAR HEMOGLOBIN 31.3 uug (24.7-32.8); MEAN CORPUSCULAR VOLUME 95.2 fL (75.5-95.3); PLATELET COUNT (AUTO) 155 K/uL (179-408)
[2021-04-26 06:41] LABS: BILIRUBIN,TOTAL 0.6 mg/dL (0.2-1.0); MAGNESIUM 2.1 mg/dL (1.8-2.4); PHOSPHOROUS 2.4 mg/dL (2.5-4.9); POTASSIUM 3.3 mmol/L (3.5-5.1); TOTAL PROTEIN, SERUM 7.4 g/dL (6.4-8.2)
[2021-04-26 06:48] LABS: THYROID STIMULATING HORMONE 0.547 mIU/mL (0.358-3.740)
[2021-04-26] MEDS ORDERED: MEROPENEM 1 G in IV NORMAL SALINE 100 ML IV SCH (07:00)
[2021-04-26] MEDS ORDERED: MORPHINE SULFATE 2 MG/1 ML DISP.SYRIN IV PRN (07:28)
--- NOTE | 2021-04-26 08:00 | NUR ---
RESTING COMFORTABLY, DENIES PAIN, N/V. SEE BY DR ARMAS WILL START ON SOFT DIET TOLERATED. CONTINUE CURRENT TX PLAN
[2021-04-26] MEDS: PANTOPRAZOLE SODIUM 40 MG VIAL IV SCH (08:08)
[2021-04-26] MEDS: AMLODIPINE 10 MG TABLET PO SCH (08:09)
[2021-04-26] MEDS ORDERED: POTASSIUM CHLORIDE 20 MEQ TAB.PRT.SR PO ONE (10:00)
[2021-04-26] MEDS: ENALAPRILAT DIHYDRATE 1.25 MG/1 ML VIAL IV PRN (10:23)
[2021-04-26] MEDS: MEROPENEM 1 G in IV NORMAL SALINE 100 ML IV SCH ×2 (10:27→22:32)
[2021-04-26] MEDS: ONDANSETRON 4 MG/2 ML VIAL IV PRN (10:27)
--- NOTE | 2021-04-26 12:00 | NUR ---
NO ACUTE CHANGE FROM AM ASSESSMENT. SR ON MONITOR
[2021-04-26] MEDS: IV D5 1/2 NS 1000 ML 1,000 ML IV PRN (14:29)
[2021-04-26] MEDS ORDERED: NEUTRA PHOS PACKET PO ONE (15:45)
--- NOTE | 2021-04-26 18:20 | NUR ---
no acute change from am assessment. denies any pain or n/v. remains SR ON MONITIOR
[2021-04-26] MEDS: ATORVASTATIN 20 MG TABLET PO SCH (22:25)
[2021-04-26] MEDS ORDERED: SIMETHICONE 80 MG TAB.CHEW PO PRN (23:45)
[2021-04-27 00:35] VITALS: BP 172/105
[2021-04-27] MEDS: ONDANSETRON 4 MG/2 ML VIAL IV PRN (00:46)
[2021-04-27] MEDS: ENALAPRILAT DIHYDRATE 1.25 MG/1 ML VIAL IV PRN (00:47)
[2021-04-27] MEDS: ZOLPIDEM 5 MG TABLET PO PRN ×2 (03:24→23:18)
[2021-04-27] MEDS: IV D5 1/2 NS 1000 ML 1,000 ML IV PRN ×2 (05:57→23:22)
[2021-04-27] MEDS ORDERED: POTASSIUM PHOSPHATE MM 15 MMOL in IV NORMAL SALINE 250 ML IV ONE (08:00)
[2021-04-27] MEDS: AMLODIPINE 10 MG TABLET PO SCH (08:01)
[2021-04-27] MEDS: PANTOPRAZOLE SODIUM 40 MG VIAL IV SCH (08:01)
[2021-04-27 08:08] LABS: HEMATOCRIT 45.2 % (31.2-41.9); MEAN CORPUSCULAR HEMOGLOBIN 31.5 uug (24.7-32.8); MEAN CORPUSCULAR VOLUME 94.4 fL (75.5-95.3); PLATELET COUNT (AUTO) 149 K/uL (179-408)
[2021-04-27 08:29] LABS: BILIRUBIN,DIRECT 0.1 mg/dL (0.0-0.2); BILIRUBIN,TOTAL 0.7 mg/dL (0.2-1.0); CREATININE 0.9 mg/dL (0.6-1.3); MAGNESIUM 1.7 mg/dL (1.8-2.4); PHOSPHOROUS 2.2 mg/dL (2.5-4.9); POTASSIUM 3.3 mmol/L (3.5-5.1); TOTAL PROTEIN, SERUM 6.8 g/dL (6.4-8.2)
[2021-04-27] MEDS ORDERED: POTASSIUM CHLORIDE 20 MEQ TAB.PRT.SR PO SCH (09:15)
[2021-04-27] MEDS: MAGNESIUM SULFATE/D5W 100 ML IV SCH ×2 (09:34→11:59)
[2021-04-27 12:00] VITALS: BP 102/73
[2021-04-27] MEDS: MEROPENEM 1 G in IV NORMAL SALINE 100 ML IV SCH ×2 (12:00→23:18)
[2021-04-27 16:00] VITALS: BP 110/70
[2021-04-27 20:45] VITALS: BP 115/76
[2021-04-27] MEDS: ATORVASTATIN 20 MG TABLET PO SCH (21:11)
[2021-04-28 00:25] VITALS: BP 115/80
--- NOTE | 2021-04-28 07:30 | NUR ---
Patient resting in bed. No s/s of discomfort or distress. Room air. SR on the irrigation district manager. Continent of bowel and bladder. IV to right forearm is patent with NS running at 80 ml/hr. Needs met at this time. Will continue current POC.
[2021-04-28] MEDS ORDERED: MAGNESIUM SULFATE/D5W 100 ML IV SCH (07:45)
[2021-04-28] MEDS ORDERED: POTASSIUM PHOSPHATE MM 15 MMOL in IV NORMAL SALINE 250 ML IV ONE (08:15)
[2021-04-28 08:21] LABS: MEAN CORPUSCULAR HEMOGLOBIN 31.5 uug (24.7-32.8); MEAN CORPUSCULAR VOLUME 95.2 fL (75.5-95.3); PLATELET COUNT (AUTO) 123 K/uL (179-408)
[2021-04-28 08:32] LABS: BILIRUBIN,DIRECT 0.2 mg/dL (0.0-0.2); BILIRUBIN,TOTAL 0.8 mg/dL (0.2-1.0); MAGNESIUM 2.3 mg/dL (1.8-2.4); PHOSPHOROUS 2.6 mg/dL (2.5-4.9); POTASSIUM 3.6 mmol/L (3.5-5.1); TOTAL PROTEIN, SERUM 6.1 g/dL (6.4-8.2)
[2021-04-28] MEDS: AMLODIPINE 10 MG TABLET PO SCH (08:59)
[2021-04-28] MEDS ORDERED: PANTOPRAZOLE SODIUM 40 MG TABLET.DR PO SCH (09:00)
[2021-04-28 10:44] VITALS: BP 104/61
[2021-04-28] MEDS: MEROPENEM 1 G in IV NORMAL SALINE 100 ML IV SCH (11:00)
[2021-04-28 15:02] VITALS: BP 87/64
--- NOTE | 2021-04-28 18:15 | NUR ---
Patient discharged to home via private auto with grandson. No s/s of discomfort or distress. ekg monitor tech and IV removed. Discharge/follow up packet given and reviewed with patient. Verbalized understanding of instructions and education. All belongings sent with patient.
== END 2021-04-28 18:20 | disposition home or self-care (01) | DRG 871 ==
LOC: ER 17:09 → TELE3 20:59
PROVIDERS: ADMIT Internal Medicine; ATTEND Internal Medicine
DX: A41.9 Sepsis, unspecified organism (principal); K85.90 Acute pancreatitis without necrosis or infection, unspecified; K65.9 Peritonitis, unspecified; E87.6 Hypokalemia; D69.6 Thrombocytopenia, unspecified; E66.9 Obesity, unspecified; E78.5 Hyperlipidemia, unspecified; F12.90 Cannabis use, unspecified, uncomplicated; I10 Essential (primary) hypertension; K44.9 Diaphragmatic hernia without obstruction or gangrene; Z20.822 Contact with and (suspected) exposure to COVID-19; Z79.891 Long term (current) use of opiate analgesic; Z87.442 Personal history of urinary calculi; R11.15 Cyclical vomiting syndrome unrelated to migraine; K76.0 Fatty (change of) liver, not elsewhere classified; K57.90 Diverticulosis of intestine, part unspecified, without perforation or abscess without bleeding; N20.0 Calculus of kidney; N28.1 Cyst of kidney, acquired; Z68.29 Body mass index [BMI] 29.0-29.9, adult
CPT/HCPCS: 36415; 70030-TC; 71045; 83605; 83690; 83735; 84100; 84443; 85025; 85730; 87040; 93005; A4663; C9113; G0378; J2185; J2405; J3475; J3480; J3490; J7030; J7050

== ENCOUNTER 2023-01-05 18:52 | Inpatient (IN) | payer MEDICARE ==
[~2023-01-05] VITALS: Ht 160 cm; Wt 78.5 kg
[2023-01-05] MEDS ORDERED: IV NS 1000 ML 1,000 ML IV ONE (19:45)
[2023-01-05] MEDS ORDERED: ONDANSETRON 4 MG/2 ML VIAL IV ONE (19:45)
[2023-01-05] MEDS ORDERED: ONDANSETRON 4 MG/2 ML VIAL ONE (19:47)
[2023-01-05 19:53] LABS: HEMATOCRIT 47.1 % (31.2-41.9); MEAN CORPUSCULAR HEMOGLOBIN 30.9 uug (24.7-32.8); PLATELET COUNT (AUTO) 187 K/uL (179-408)
[2023-01-05 20:03] LABS: CARBON DIOXIDE 28 mmol/L (21-32); CHLORIDE 100 mmol/L (98-107); GLUCOSE 138 mg/dL (74-106); POTASSIUM 3.6 mmol/L (3.5-5.1); UREA NITROGEN, BLOOD 16 mg/dL (7-18)
[2023-01-05 20:11] LABS: ALANINE AMINOTRANSFERASE 26 U/L (14-59); ALKALINE PHOSPHATASE 109 U/L (50-136); ASPARTATE AMINOTRANSFERASE 48 U/L (15-37); BILIRUBIN,DIRECT 0.2 mg/dL (0.0-0.2); BILIRUBIN,TOTAL 0.6 mg/dL (0.2-1.0); TOTAL PROTEIN, SERUM 8.4 g/dL (6.4-8.2)
[2023-01-05 20:23] LABS: THYROID STIMULATING HORMONE 0.744 mIU/mL (0.358-3.740)
[2023-01-05] MEDS ORDERED: diphenhydrAMINE 50 MG/1 ML VIAL IV ONE (20:30)
[2023-01-05] MEDS ORDERED: METOCLOPRAMIDE HCL 10 MG/2 ML VIAL IV ONE (20:30)
[2023-01-05] MEDS ORDERED: diphenhydrAMINE 50 MG/1 ML VIAL ONE (20:32)
[2023-01-05] MEDS ORDERED: METOCLOPRAMIDE HCL 10 MG/2 ML VIAL ONE (20:32)
[2023-01-05 20:54] LABS: *BILIRUBIN,URIN NEGATIVE (NEGATIVE); *CLARITY,URINE CLEAR (CLEAR); *COLOR,URINE YELLOW (YELLOW); *KETONES,URINE NEGATIVE (NEGATIVE); *UROBILINOGEN,URINE 0.2 E.U./dl (NORMAL); LEUKOCYTE ESTERASE ,URINE NEGATIVE (NEGATIVE); NITRITE, URINE NEGATIVE (NEGATIVE); UGLUCOSE TRACE (NEGATIVE)
[2023-01-05] MEDS ORDERED: IV NORMAL SALINE 500 ML IV ONE (21:00)
[2023-01-05 21:11] LABS: *BLOOD, URINE TRACE (NEGATIVE)
[2023-01-05] MEDS ORDERED: ONDANSETRON 4 MG/2 ML VIAL IV PRN (22:00)
[2023-01-05] MEDS ORDERED: REMEDY ESSENTIAL ZINC PASTE 113 GM TP PRN (22:00)
[2023-01-05] MEDS ORDERED: MAGNESIUM HYDROXIDE 30 ML LIQUID UDC PO PRN (22:00)
[2023-01-05] MEDS ORDERED: ACETAMINOPHEN 325 MG TABLET PO PRN (22:00)
[2023-01-05 23:17] LABS: BACTERIA,URINE FEW /HPF (NONE SEEN); SQUAMOUS EPITHELIAL CELL,UR FEW /HPF (NONE SEEN); WBC,URINE NONE SEEN /HPF (0-3)
[2023-01-05] MEDS ORDERED: hydrALAZINE HCL 20 MG/1 ML VIAL IV ONE (23:30)
[2023-01-05] MEDS ORDERED: hydrALAZINE HCL 20 MG/1 ML VIAL ONE (23:31)
[2023-01-06] MEDS: IV NS 1000 ML 1,000 ML IV PRN (00:28)
[2023-01-06 00:58] VITALS: BP 139/73
[2023-01-06 04:12] VITALS: BP 143/74
[2023-01-06 07:22] LABS: HEMATOCRIT 43.2 % (31.2-41.9); MEAN CORPUSCULAR HEMOGLOBIN 30.9 uug (24.7-32.8); MEAN CORPUSCULAR VOLUME 93.7 fL (75.5-95.3); PLATELET COUNT (AUTO) 157 K/uL (179-408)
[2023-01-06 08:05] LABS: CREATININE 0.9 mg/dL (0.6-1.3); PHOSPHOROUS 2.8 mg/dL (2.5-4.9); POTASSIUM 3.2 mmol/L (3.5-5.1)
[2023-01-06] MEDS: POTASSIUM CHLORIDE 20 MEQ TAB.PRT.SR PO SCH ×2 (09:57→11:13)
[2023-01-06 12:00] VITALS: BP 105/64
[2023-01-06 15:51] VITALS: BP 148/79
[2023-01-06] MEDS: ONDANSETRON HCL 4 MG TABLET PO PRN (17:52)
[2023-01-06 20:48] VITALS: BP 164/93
[2023-01-06] MEDS ORDERED: AMLODIPINE 5 MG TABLET PO ONE (21:45)
[2023-01-07] MEDS: diphenhydrAMINE 50 MG/1 ML VIAL IV PRN ×2 (00:59→20:35)
[2023-01-07 01:23] VITALS: BP 146/98
[2023-01-07 04:16] VITALS: BP 151/98
[2023-01-07 06:04] LABS: HEMATOCRIT 47.3 % (31.2-41.9); MEAN CORPUSCULAR HEMOGLOBIN 31.3 uug (24.7-32.8); MEAN CORPUSCULAR VOLUME 94.1 fL (75.5-95.3); PLATELET COUNT (AUTO) 166 K/uL (179-408)
[2023-01-07 06:21] LABS: CREATININE 0.9 mg/dL (0.6-1.3); MAGNESIUM 2.1 mg/dL (1.8-2.4); PHOSPHOROUS 2.2 mg/dL (2.5-4.9)
[2023-01-07 11:36] VITALS: BP 123/91
[2023-01-07] MEDS: IV NS 1000 ML 1,000 ML IV PRN (11:38)
[2023-01-07] MEDS: AMLODIPINE 10 MG TABLET PO SCH (11:38)
[2023-01-07] MEDS: ONDANSETRON HCL 4 MG TABLET PO PRN (14:56)
[2023-01-07 15:37] VITALS: BP 142/86
[2023-01-07] MEDS ORDERED: NEUTRA PHOS PACKET PO ONE (16:00)
[2023-01-07 20:00] VITALS: BP 109/72
[2023-01-07] MEDS ORDERED: ATORVASTATIN 20 MG TABLET PO SCH (21:00)
[2023-01-08] MEDS: diphenhydrAMINE 50 MG/1 ML VIAL IV PRN (02:32)
[2023-01-08 04:00] VITALS: BP 114/52
[2023-01-08 07:17] LABS: CREATININE 1.1 mg/dL (0.6-1.3); PHOSPHOROUS 2.6 mg/dL (2.5-4.9); POTASSIUM 3.2 mmol/L (3.5-5.1)
[2023-01-08] MEDS: AMLODIPINE 10 MG TABLET PO SCH (08:35)
[2023-01-08] MEDS ORDERED: POTASSIUM CHLORIDE 20 MEQ TAB.PRT.SR PO ONE (09:30)
[2023-01-08 11:50] VITALS: BP 109/73
== END 2023-01-08 16:45 | disposition home or self-care (01) | DRG 394 ==
LOC: ER 18:59 → MEDSURG3 21:53
PROVIDERS: ADMIT Nurse Practitioner Acute Care; ATTEND Nurse Practitioner Acute Care
PROC: 05HD33Z Insertion of Infusion Device into Right Cephalic Vein, Percutaneous Approach (ICD-10-PCS; principal; 2023-01-06)
DX: R11.15 Cyclical vomiting syndrome unrelated to migraine (principal); D68.59 Other primary thrombophilia; K86.1 Other chronic pancreatitis; E66.01 Morbid (severe) obesity due to excess calories; Z68.30 Body mass index [BMI] 30.0-30.9, adult; F12.90 Cannabis use, unspecified, uncomplicated; R00.0 Tachycardia, unspecified; Z20.822 Contact with and (suspected) exposure to COVID-19; E78.5 Hyperlipidemia, unspecified; Z87.442 Personal history of urinary calculi; K76.0 Fatty (change of) liver, not elsewhere classified; K52.9 Noninfective gastroenteritis and colitis, unspecified; Z79.891 Long term (current) use of opiate analgesic; K44.9 Diaphragmatic hernia without obstruction or gangrene; E86.0 Dehydration; I10 Essential (primary) hypertension; Z87.19 Personal history of other diseases of the digestive system
CPT/HCPCS: 36415; 83605; 83690; 83735; 84100; 84443; 84484; 85025; 87040; 93005; G0378; J0360; J1200; J2405; J2765; J7040; Q0162

== ENCOUNTER 2023-04-19 13:57 | Emergency (ER) | payer MEDICARE ==
[~2023-04-19] VITALS: Ht 170.2 cm; Wt 73.0 kg
--- NOTE | 2023-04-19 14:05 | NUR ---
DR Florentino at the bedside for MSE.
[2023-04-19] MEDS ORDERED: ONDANSETRON 4 MG/2 ML VIAL ONE ×2 (14:15→15:41)
[2023-04-19] MEDS ORDERED: MORPHINE SULFATE 4 MG/1 ML DISP.SYRIN ONE (14:15)
[2023-04-19] MEDS ORDERED: ONDANSETRON 4 MG/2 ML VIAL IV ONE ×2 (14:15→15:45)
[2023-04-19] MEDS ORDERED: MORPHINE SULFATE 2 MG/1 ML DISP.SYRIN IV ONE (14:15)
[2023-04-19] MEDS ORDERED: IV NORMAL SALINE 1000 ML BAG IV ONE (14:15)
[2023-04-19 14:54] LABS: HEMATOCRIT 45.2 % (31.2-41.9); MEAN CORPUSCULAR HEMOGLOBIN 31.4 uug (24.7-32.8); MEAN CORPUSCULAR VOLUME 95.1 fL (75.5-95.3); PLATELET COUNT (AUTO) 171 K/uL (179-408)
[2023-04-19 15:11] LABS: POTASSIUM 3.5 mmol/L (3.5-5.1)
[2023-04-19 15:19] LABS: BILIRUBIN,DIRECT 0.2 mg/dL (0.0-0.2); BILIRUBIN,TOTAL 0.5 mg/dL (0.2-1.0); TOTAL PROTEIN, SERUM 8.2 g/dL (6.4-8.2)
[2023-04-19] MEDS ORDERED: ONDA4TAB5 PO (15:40)
[2023-04-19] MEDS ORDERED: METO-295 PO (15:40)
--- NOTE | 2023-04-19 16:08 | NUR ---
IV removed. Catheter intact and site benign. Pressure and 4x4 gauze applied to site. No bleeding noted.
[2023-04-19 16:10] VITALS: BP 144/99
--- NOTE | 2023-04-19 16:39 | NUR ---
Patient discharged to home in stable condition. Written and verbal after care instructions given. Patient verbalizes understanding of instructions. Stressed follow up or return to ER for worsening s/s.
[2023-04-20] MEDS ORDERED: ONDA4TAB5 PO (09:36)
[2023-04-20] MEDS ORDERED: CAPS1ADH8 TP (09:36)
== END 2023-04-19 16:39 | disposition home or self-care (01) ==
LOC: ER 13:57
DX: R11.2 Nausea with vomiting, unspecified (principal); I10 Essential (primary) hypertension; Z90.49 Acquired absence of other specified parts of digestive tract; Z79.899 Other long term (current) drug therapy
CPT/HCPCS: 99284; 96374; 96361; 96375; 80076; 80048; 83690; 85025; 36415; 96376; J2405 ×2; J2270; J7040; A4663

== ENCOUNTER 2023-04-20 07:19 | Emergency (ER) | payer MEDICARE ==
[~2023-04-20] VITALS: Ht 170.2 cm; Wt 73.5 kg
[~2023-04-20 07:19] MED LIST changes: +METO-295 PO; +ONDA4TAB5 PO
--- NOTE | 2023-04-20 07:48 | NUR ---
seen and examined by
[2023-04-20] MEDS ORDERED: ONDANSETRON 4 MG/2 ML VIAL ONE (07:54)
[2023-04-20] MEDS ORDERED: IV NORMAL SALINE 1000 ML BAG IV ONE (08:00)
[2023-04-20] MEDS ORDERED: ONDANSETRON 4 MG/2 ML VIAL IV ONE (08:00)
[2023-04-20] MEDS ORDERED: KETOROLAC TROMETHAMINE 15 MG INJ ONE (08:25)
[2023-04-20 08:28] LABS: HEMATOCRIT 45.4 % (31.2-41.9); MEAN CORPUSCULAR HEMOGLOBIN 31.5 uug (24.7-32.8); MEAN CORPUSCULAR VOLUME 94.5 fL (75.5-95.3); PLATELET COUNT (AUTO) 178 K/uL (179-408)
[2023-04-20] MEDS ORDERED: KETOROLAC TROMETHAMINE 15 MG INJ IVP ONE (08:30)
[2023-04-20 08:45] LABS: BILIRUBIN,DIRECT 0.1 mg/dL (0.0-0.2); BILIRUBIN,TOTAL 0.6 mg/dL (0.2-1.0); CREATININE 1.2 mg/dL (0.6-1.3); POTASSIUM 3.2 mmol/L (3.5-5.1)
[2023-04-20] MEDS ORDERED: ONDA4TAB5 PO (09:36)
[2023-04-20] MEDS ORDERED: CAPS1ADH8 TP (09:36)
[2023-04-20 09:45] VITALS: BP 118/80
== END 2023-04-20 09:46 | disposition home or self-care (01) ==
LOC: ER 07:19
DX: R11.2 Nausea with vomiting, unspecified (principal); I10 Essential (primary) hypertension; Z90.49 Acquired absence of other specified parts of digestive tract; Z79.899 Other long term (current) drug therapy
CPT/HCPCS: 99284; 96374; 96361; 96375; 80076; 80048; 83690; 85025; 36415; J1885; J2405; J7040; A4663

== ENCOUNTER 2023-10-11 12:52 | Emergency (ER) | payer MEDICARE ==
[~2023-10-11] VITALS: Ht 170.2 cm; Wt 73.5 kg
[~2023-10-11 12:52] MED LIST changes: +CAPS1ADH8 TP
[2023-10-11] MEDS ORDERED: IV NORMAL SALINE 1000 ML BAG IV ONE (17:15)
[2023-10-11] MEDS ORDERED: HYDROMORPHONE 1 MG/1 ML DISP.SYRIN IV ONE (17:15)
[2023-10-11] MEDS ORDERED: ONDANSETRON 4 MG/2 ML VIAL IV ONE (17:15)
[2023-10-11] MEDS ORDERED: HYDROMORPHONE 1 MG/1 ML DISP.SYRIN ONE (18:04)
[2023-10-11] MEDS ORDERED: ONDANSETRON 4 MG/2 ML VIAL ONE (18:04)
[2023-10-11 18:24] LABS: BASOPHILS # (AUTO) 0.1 K/UL (0.0-0.2); BASOPHILS % (AUTO) 0.7 % (0.0-2.0); EOSINOPHILS # (AUTO) 0.2 K/uL (0.0-0.7); EOSINOPHILS % (AUTO) 2.2 % (0.0-7.0); HEMATOCRIT 41.6 % (31.2-41.9); HEMOGLOBIN 13.9 g/dL (10.9-14.3); LYMPHOCYTES # (AUTO) 0.2 K/uL (0.8-4.8); LYMPHOCYTES % (AUTO) 2.3 % (20.5-51.5); MEAN CORPUSCULAR HEMOGLOBIN 31.5 uug (24.7-32.8); MEAN CORPUSCULAR HGB CONC 34 g/dL (32.3-35.6); MONOCYTES # (AUTO) 0.1 K/uL (0.1-1.30); NEUTROPHILS # (AUTO) 9.7 K/uL (1.8-8.9); NEUTROPHILS % (AUTO) 93.8 % (38.5-71.5); PLATELET COUNT (AUTO) 226 K/uL (179-408); RED BLOOD CELL COUNT(AUTO) 4.42 MIL/uL (3.63-4.92); RED CELL DISTRIBUTION WIDTH 13.4 % (12.3-17.7); WHITE BLOOD COUNT (AUTO) 10.3 K/uL (3.8-11.8)
[2023-10-11 18:31] LABS: CALCIUM 9.3 mg/dL (8.5-10.1); CARBON DIOXIDE 27 mmol/L (21-32); CHLORIDE 103 mmol/L (98-107); CREATININE 0.9 mg/dL (0.6-1.3); DIFFERENTIAL COMMENT 1; GLUCOSE 127 mg/dL (74-106); POTASSIUM 3.2 mmol/L (3.5-5.1); SODIUM SERUM 143 mmol/L (136-145); UREA NITROGEN, BLOOD 17 mg/dL (7-18)
[2023-10-11 18:40] LABS: ALANINE AMINOTRANSFERASE 20 U/L (14-59); ALBUMIN 3.8 g/dL (3.4-5.0); ALKALINE PHOSPHATASE 107 U/L (50-136); ASPARTATE AMINOTRANSFERASE 31 U/L (15-37); BILIRUBIN,DIRECT 0.2 mg/dL (0.0-0.2); BILIRUBIN,TOTAL 0.4 mg/dL (0.2-1.0); LIPASE 111 U/L (16-77); TOTAL PROTEIN, SERUM 7.7 g/dL (6.4-8.2)
[2023-10-11] MEDS ORDERED: ONDA4TAB11 PO (20:26)
[2023-10-11 21:43] VITALS: BP 145/86; TEMP 98.5; O2SAT 100
== END 2023-10-11 21:43 | disposition home or self-care (01) ==
LOC: ER 12:52
DX: R11.2 Nausea with vomiting, unspecified (principal); R10.84 Generalized abdominal pain; R74.8 Abnormal levels of other serum enzymes; I10 Essential (primary) hypertension; K91.872 Postprocedural seroma of a digestive system organ or structure following a digestive system procedure; R07.89 Other chest pain; Z79.899 Other long term (current) drug therapy
CPT/HCPCS: 36415; 71045; 83690; 84484; 85025; 85730; A4606; A4663; J1170; J2405; J7040

== ENCOUNTER 2023-10-12 14:47 | Emergency (ER) | payer MEDICARE ==
[~2023-10-12] VITALS: Ht 170.2 cm; Wt 73.5 kg
[~2023-10-12 14:47] MED LIST changes: +ONDA4TAB11 PO
[2023-10-12 15:16] VITALS: O2SAT 98
[2023-10-12] MEDS ORDERED: diphenhydrAMINE 50 MG/1 ML VIAL IM ONE (16:15)
[2023-10-12] MEDS ORDERED: HALOPERIDOL LACTATE 5 MG/1 ML VIAL IM ONE (16:15)
[2023-10-12] MEDS ORDERED: diphenhydrAMINE 50 MG/1 ML VIAL ONE (16:27)
[2023-10-12] MEDS ORDERED: HALOPERIDOL LACTATE 5 MG/1 ML VIAL ONE (16:27)
== END 2023-10-12 18:29 | disposition home or self-care (01) ==
LOC: ER 14:47
DX: R11.2 Nausea with vomiting, unspecified (principal); I10 Essential (primary) hypertension; Z79.899 Other long term (current) drug therapy
CPT/HCPCS: 99284; 96372 ×2; J1200; J1630; A4606; A4663

== ENCOUNTER 2024-05-05 23:33 | Emergency (ER) | payer MEDICARE ==
[~2024-05-05] VITALS: Ht 160 cm; Wt 72.6 kg
[~2024-05-05 23:33] MED LIST changes: -ONDA4TAB11 PO; -ONDA4TAB5 PO
[2024-05-05 23:53] VITALS: O2SAT 98
[2024-05-06] MEDS: IV NORMAL SALINE 1000 ML BAG IV ONE (00:40)
[2024-05-06] MEDS ORDERED: PANTOPRAZOLE SODIUM 40 MG VIAL ONE (00:43)
[2024-05-06] MEDS ORDERED: ONDANSETRON 4 MG/2 ML VIAL ONE (00:43)
[2024-05-06] MEDS ORDERED: HYDROMORPHONE 1 MG/1 ML DISP.SYRIN ONE (00:44)
[2024-05-06] MEDS: ONDANSETRON 4 MG/2 ML VIAL IV ONE (00:45)
[2024-05-06 00:46] LABS: BASOPHILS % (AUTO) 0.1 % (0.0-2.0); HEMATOCRIT 43.7 % (31.2-41.9); HEMOGLOBIN 14.5 g/dL (10.9-14.3); LYMPHOCYTES # (AUTO) 0.9 K/uL (0.8-4.8); LYMPHOCYTES % (AUTO) 6.8 % (20.5-51.5); MEAN CORPUSCULAR HEMOGLOBIN 30.5 uug (24.7-32.8); MEAN CORPUSCULAR HGB CONC 33 g/dL (32.3-35.6); MEAN CORPUSCULAR VOLUME 92.1 fL (75.5-95.3); MONOCYTES # (AUTO) 0.9 K/uL (0.1-1.30); MONOCYTES % (AUTO) 6.8 % (0.0-11.0); NEUTROPHILS # (AUTO) 10.9 K/uL (1.8-8.9); NEUTROPHILS % (AUTO) 86.3 % (38.5-71.5); PLATELET COUNT (AUTO) 211 K/uL (179-408); RED BLOOD CELL COUNT(AUTO) 4.75 MIL/uL (3.63-4.92); RED CELL DISTRIBUTION WIDTH 14.9 % (12.3-17.7); WHITE BLOOD COUNT (AUTO) 12.7 K/uL (3.8-11.8)
[2024-05-06] MEDS: HYDROMORPHONE 1 MG/1 ML DISP.SYRIN IV ONE (00:50)
[2024-05-06] MEDS: PANTOPRAZOLE SODIUM 40 MG VIAL IV ONE (00:50)
[2024-05-06] MEDS ORDERED: SWABABLE VALVE TRANSFER SET EA MC ONE (00:51)
[2024-05-06] MEDS ORDERED: IOHEXOL 300MG/ML 100 ML INFUS..BTL ONE (00:51)
[2024-05-06] MEDS ORDERED: IV NORMAL SALINE 250 ML IV ONE (00:53)
[2024-05-06 00:54] LABS: CALCIUM 9.7 mg/dL (8.5-10.1); POTASSIUM 3.4 mmol/L (3.5-5.1)
[2024-05-06 01:24] LABS: ALBUMIN 4.2 g/dL (3.4-5.0); BILIRUBIN,DIRECT 0.1 mg/dL (0.0-0.2); BILIRUBIN,TOTAL 0.6 mg/dL (0.2-1.0); TOTAL PROTEIN, SERUM 8.2 g/dL (6.4-8.2)
[2024-05-06 02:20] LABS: *BILIRUBIN,URIN NEGATIVE (NEGATIVE); *CLARITY,URINE CLEAR (CLEAR); *COLOR,URINE YELLOW (YELLOW); *KETONES,URINE NEGATIVE (NEGATIVE); *PROTEIN,URINE NEGATIVE (NEGATIVE); *UROBILINOGEN,URINE 0.2 E.U./dl (NORMAL); LEUKOCYTE ESTERASE ,URINE NEGATIVE (NEGATIVE); NITRITE, URINE NEGATIVE (NEGATIVE); UGLUCOSE NEGATIVE (NEGATIVE)
[2024-05-06 02:21] LABS: *BLOOD, URINE TRACE (NEGATIVE)
[2024-05-06] MEDS ORDERED: ONDA4TAB11 PO (02:51)
[2024-05-06 03:08] LABS: BACTERIA,URINE FEW /HPF (NONE SEEN); SQUAMOUS EPITHELIAL CELL,UR MODERATE /HPF (NONE SEEN)
== END 2024-05-06 03:00 | disposition left against medical advice (07) ==
LOC: ER 23:34
DX: R10.9 Unspecified abdominal pain (principal); R11.2 Nausea with vomiting, unspecified; E78.5 Hyperlipidemia, unspecified; Z90.49 Acquired absence of other specified parts of digestive tract; Z98.890 Other specified postprocedural states; Z79.899 Other long term (current) drug therapy
CPT/HCPCS: 99285; 74177; 96374; 96361; 96375; 71045; 80076; 80048; 81001; 83690; 85025; 36415; 93005 ×2; J2405; Q9967; J1170; J7040; A4606; A4663; J2470

== ENCOUNTER 2024-05-06 17:38 | Inpatient (IN) | payer MEDICARE ==
[~2024-05-06] VITALS: Ht 162.6 cm; Wt 72.6 kg
[~2024-05-06 17:38] MED LIST changes: +ONDA4TAB11 PO
[2024-05-06] MEDS ORDERED: ONDANSETRON 4 MG/2 ML VIAL ONE ×3 (19:18→23:32)
[2024-05-06] MEDS ORDERED: PANTOPRAZOLE SODIUM 40 MG VIAL ONE (19:18)
[2024-05-06 19:21] LABS: BASOPHILS % (AUTO) 0.1 % (0.0-2.0); HEMATOCRIT 45.3 % (31.2-41.9); HEMOGLOBIN 14.7 g/dL (10.9-14.3); LYMPHOCYTES # (AUTO) 0.3 K/uL (0.8-4.8); LYMPHOCYTES % (AUTO) 2.8 % (20.5-51.5); MEAN CORPUSCULAR HEMOGLOBIN 30.1 uug (24.7-32.8); MEAN CORPUSCULAR HGB CONC 33 g/dL (32.3-35.6); MEAN CORPUSCULAR VOLUME 92.5 fL (75.5-95.3); MONOCYTES # (AUTO) 0.2 K/uL (0.1-1.30); MONOCYTES % (AUTO) 1.6 % (0.0-11.0); NEUTROPHILS # (AUTO) 11.1 K/uL (1.8-8.9); NEUTROPHILS % (AUTO) 95.5 % (38.5-71.5); PLATELET COUNT (AUTO) 220 K/uL (179-408); RED BLOOD CELL COUNT(AUTO) 4.89 MIL/uL (3.63-4.92); RED CELL DISTRIBUTION WIDTH 15.3 % (12.3-17.7); WHITE BLOOD COUNT (AUTO) 11.6 K/uL (3.8-11.8)
[2024-05-06 19:22] LABS: DIFFERENTIAL COMMENT 1
[2024-05-06] MEDS: PANTOPRAZOLE SODIUM IV 40 MG in IV DEXTROSE 5% 100 ML IV ONE (19:26)
[2024-05-06] MEDS: IV NS 1000 ML 1,000 ML IV ONE (19:26)
[2024-05-06] MEDS: ONDANSETRON 4 MG/2 ML VIAL IV ONE ×3 (19:27→23:35)
[2024-05-06 19:30] LABS: CALCIUM 10.3 mg/dL (8.5-10.1); CREATININE 1.1 mg/dL (0.6-1.3); POTASSIUM 3.8 mmol/L (3.5-5.1)
[2024-05-06 19:35] LABS: ALBUMIN 4.3 g/dL (3.4-5.0); TOTAL PROTEIN, SERUM 8.4 g/dL (6.4-8.2)
[2024-05-06 20:13] LABS: *BILIRUBIN,URIN NEGATIVE (NEGATIVE); *BLOOD, URINE NEGATIVE (NEGATIVE); *CLARITY,URINE CLOUDY (CLEAR); *COLOR,URINE YELLOW (YELLOW); *KETONES,URINE NEGATIVE (NEGATIVE); *PROTEIN,URINE TRACE (NEGATIVE); *UROBILINOGEN,URINE 0.2 E.U./dl (NORMAL); LEUKOCYTE ESTERASE ,URINE NEGATIVE (NEGATIVE); NITRITE, URINE NEGATIVE (NEGATIVE); UGLUCOSE NEGATIVE (NEGATIVE)
[2024-05-06 20:19] LABS: RBC,URINE 0-3 /HPF (0-3); WBC,URINE 0-3 /HPF (0-3)
[2024-05-06] MEDS ORDERED: KETOROLAC TROMETHAMINE 30 MG INJ ONE (20:25)
[2024-05-06] MEDS: KETOROLAC TROMETHAMINE 30 MG INJ IVP ONE (20:45)
[2024-05-07] MEDS ORDERED: MAGNESIUM HYDROXIDE 30 ML LIQUID UDC PO PRN (00:15)
[2024-05-07] MEDS ORDERED: ACETAMINOPHEN 325 MG TABLET PO PRN (00:15)
[2024-05-07] MEDS ORDERED: METOCLOPRAMIDE HCL 10 MG/2 ML VIAL IV PRN (00:30)
[2024-05-07] MEDS ORDERED: MORPHINE SULFATE 2 MG/1 ML DISP.SYRIN ONE (00:37)
[2024-05-07] MEDS: MORPHINE SULFATE 2 MG/1 ML DISP.SYRIN IV PRN (00:38)
[2024-05-07 02:15] VITALS: BP 144/86; TEMP 98.6; O2SAT 99
[2024-05-07] MEDS: IV NS 1000 ML 1,000 ML IV SCH (03:20)
[2024-05-07] MEDS: ONDANSETRON 4 MG/2 ML VIAL IV PRN (04:21)
[2024-05-07 06:10] VITALS: BP 118/73; TEMP 98.6; O2SAT 97
[2024-05-07] MEDS: AMLODIPINE 10 MG TABLET PO SCH (09:19)
[2024-05-07] MEDS: PANTOPRAZOLE SODIUM 40 MG VIAL IV SCH (09:20)
[2024-05-07 12:00] VITALS: BP 110/67; TEMP 98.2; O2SAT 97
[2024-05-07 16:00] VITALS: BP 106/70; TEMP 97.2; O2SAT 97
[2024-05-07] MEDS ORDERED: ATORVASTATIN 20 MG TABLET PO SCH ×2 (21:00)
== END 2024-05-07 17:00 | disposition home or self-care (01) | DRG 392 ==
LOC: ER 17:39 → MEDSURG3 05-07 00:12
PROVIDERS: ATTEND Internal Medicine
DX: K31.84 Gastroparesis (principal); K86.1 Other chronic pancreatitis; K58.9 Irritable bowel syndrome, unspecified; K44.9 Diaphragmatic hernia without obstruction or gangrene; K76.0 Fatty (change of) liver, not elsewhere classified; R73.9 Hyperglycemia, unspecified; I10 Essential (primary) hypertension; N28.1 Cyst of kidney, acquired; K57.30 Diverticulosis of large intestine without perforation or abscess without bleeding; Z87.442 Personal history of urinary calculi; Z79.899 Other long term (current) drug therapy; Z79.891 Long term (current) use of opiate analgesic; E78.5 Hyperlipidemia, unspecified; E66.9 Obesity, unspecified; Z68.27 Body mass index [BMI] 27.0-27.9, adult
CPT/HCPCS: 36415; 83605; 83690; 85025; A4663; G0378; J1885; J2270; J2405; J7040

== ENCOUNTER 2024-09-12 16:45 | Emergency (ER) | payer MEDICARE ==
[~2024-09-12] VITALS: Ht 160 cm; Wt 72.6 kg
[2024-09-12] MEDS ORDERED: AMLODIPI (16:59)
[2024-09-12] MEDS ORDERED: chlorproMAZINE 50 MG/2 ML AMPUL ONE (17:39)
[2024-09-12] MEDS ORDERED: diphenhydrAMINE 50 MG/1 ML VIAL ONE (17:48)
[2024-09-12 17:56] LABS: BASOPHILS % (AUTO) 0.1 % (0.0-2.0); EOSINOPHILS % (AUTO) 0.2 % (0.0-7.0); HEMATOCRIT 39.9 % (31.2-41.9); HEMOGLOBIN 13.7 g/dL (10.9-14.3); LYMPHOCYTES # (AUTO) 0.4 K/uL (0.8-4.8); LYMPHOCYTES % (AUTO) 4.1 % (20.5-51.5); MEAN CORPUSCULAR HGB CONC 34 g/dL (32.3-35.6); MEAN CORPUSCULAR VOLUME 93.3 fL (75.5-95.3); MONOCYTES # (AUTO) 0.2 K/uL (0.1-1.30); MONOCYTES % (AUTO) 2.5 % (0.0-11.0); NEUTROPHILS # (AUTO) 8.5 K/uL (1.8-8.9); NEUTROPHILS % (AUTO) 93.1 % (38.5-71.5); PLATELET COUNT (AUTO) 179 K/uL (179-408); RED BLOOD CELL COUNT(AUTO) 4.27 MIL/uL (3.63-4.92); RED CELL DISTRIBUTION WIDTH 13.9 % (12.3-17.7); WHITE BLOOD COUNT (AUTO) 9.1 K/uL (3.8-11.8)
[2024-09-12] MEDS: diphenhydrAMINE 50 MG/1 ML VIAL IV ONE (17:59)
[2024-09-12] MEDS: chlorproMAZINE 50 MG/2 ML AMPUL IV ONE (17:59)
[2024-09-12] MEDS: IV NORMAL SALINE 1000 ML BAG IV ONE (17:59)
[2024-09-12 18:01] LABS: DIFFERENTIAL COMMENT 1
[2024-09-12 18:04] LABS: CARBON DIOXIDE 27 mmol/L (21-32); CHLORIDE 103 mmol/L (98-107); CREATININE 1.1 mg/dL (0.6-1.3); GLUCOSE 143 mg/dL (74-106); POTASSIUM 3.8 mmol/L (3.5-5.1); SODIUM SERUM 142 mmol/L (136-145); UREA NITROGEN, BLOOD 22 mg/dL (7-18)
[2024-09-12 18:17] LABS: ALANINE AMINOTRANSFERASE 26 U/L (14-59); ALBUMIN 4.1 g/dL (3.4-5.0); ALKALINE PHOSPHATASE 90 U/L (50-136); ASPARTATE AMINOTRANSFERASE 37 U/L (15-37); BILIRUBIN,DIRECT 0.1 mg/dL (0.0-0.2); BILIRUBIN,TOTAL 0.5 mg/dL (0.2-1.0); LIPASE 60 U/L (16-77)
[2024-09-12 19:58] LABS: *BILIRUBIN,URIN NEGATIVE (NEGATIVE); *BLOOD, URINE NEGATIVE (NEGATIVE); *COLOR,URINE YELLOW (YELLOW); *KETONES,URINE NEGATIVE (NEGATIVE); *PROTEIN,URINE NEGATIVE (NEGATIVE); *UROBILINOGEN,URINE 0.2 E.U./dl (NORMAL); LEUKOCYTE ESTERASE ,URINE NEGATIVE (NEGATIVE); NITRITE, URINE NEGATIVE (NEGATIVE); PH,URINE 7.5 (5.0-8.0); UGLUCOSE NEGATIVE (NEGATIVE)
[2024-09-12 20:06] LABS: *CLARITY,URINE CLEAR (CLEAR)
[2024-09-12] MEDS ORDERED: CLONIDINE HCL 0.1 MG TABLET ONE (21:21)
[2024-09-12] MEDS: CLONIDINE HCL 0.1 MG TABLET PO ONE (21:25)
[2024-09-12 23:15] VITALS: BP 140/95; TEMP 98.6; O2SAT 97
== END 2024-09-12 22:40 | disposition home or self-care (01) ==
LOC: ER 16:45
DX: R11.2 Nausea with vomiting, unspecified (principal); I11.9 Hypertensive heart disease without heart failure; E78.5 Hyperlipidemia, unspecified; R00.0 Tachycardia, unspecified; F12.90 Cannabis use, unspecified, uncomplicated; Z90.49 Acquired absence of other specified parts of digestive tract; Z87.19 Personal history of other diseases of the digestive system; Z79.899 Other long term (current) drug therapy; Z88.7 Allergy status to serum and vaccine
CPT/HCPCS: 99285; 96374; 96361; 71045; 96375; 80076; 80048; 81003; 83690; 85025; 85730; 84484; 36415; 93005; J3230; J1200; J7040 ×2; A4606; A4663

== ENCOUNTER 2025-01-02 14:39 | Inpatient (IN) | payer MEDICARE ==
[~2025-01-02] VITALS: Ht 160 cm; Wt 71.7 kg
[~2025-01-02 14:39] MED LIST changes: +AMLODIPI; -CAPS1ADH8 TP; -METO-295 PO; -ONDA4TAB11 PO
[2025-01-02] MEDS: IV NS 1000 ML 1,000 ML IV ONE (15:35)
[2025-01-02] MEDS ORDERED: METOCLOPRAMIDE HCL 10 MG/2 ML VIAL ONE (15:36)
[2025-01-02 15:39] LABS: BASOPHILS % (AUTO) 0.1 % (0.0-2.0); EOSINOPHILS % (AUTO) 0.2 % (0.0-7.0); HEMATOCRIT 37.7 % (31.2-41.9); HEMOGLOBIN 12.4 g/dL (10.9-14.3); LYMPHOCYTES # (AUTO) 1.5 K/uL (0.8-4.8); LYMPHOCYTES % (AUTO) 20.3 % (20.5-51.5); MEAN CORPUSCULAR HEMOGLOBIN 30.4 uug (24.7-32.8); MEAN CORPUSCULAR HGB CONC 33 g/dL (32.3-35.6); MEAN CORPUSCULAR VOLUME 92.2 fL (75.5-95.3); MONOCYTES # (AUTO) 0.6 K/uL (0.1-1.30); MONOCYTES % (AUTO) 8.7 % (0.0-11.0); NEUTROPHILS # (AUTO) 5.1 K/uL (1.8-8.9); NEUTROPHILS % (AUTO) 70.7 % (38.5-71.5); PLATELET COUNT (AUTO) 169 K/uL (179-408); RED BLOOD CELL COUNT(AUTO) 4.08 MIL/uL (3.63-4.92); RED CELL DISTRIBUTION WIDTH 14.6 % (12.3-17.7); WHITE BLOOD COUNT (AUTO) 7.3 K/uL (3.8-11.8)
[2025-01-02] MEDS: METOCLOPRAMIDE HCL 10 MG/2 ML VIAL IV ONE (15:39)
[2025-01-02 15:45] LABS: DIFFERENTIAL COMMENT 1
[2025-01-02 15:48] LABS: CALCIUM 9.4 mg/dL (8.5-10.1); CARBON DIOXIDE 31 mmol/L (21-32); CHLORIDE 99 mmol/L (98-107); CREATININE 2.2 mg/dL (0.6-1.3); GLUCOSE 95 mg/dL (74-106); POTASSIUM 3.5 mmol/L (3.5-5.1); SODIUM SERUM 139 mmol/L (136-145); UREA NITROGEN, BLOOD 40 mg/dL (7-18)
[2025-01-02 15:53] LABS: ALANINE AMINOTRANSFERASE 19 U/L (14-59); ALBUMIN 3.5 g/dL (3.4-5.0); ALKALINE PHOSPHATASE 101 U/L (50-136); ASPARTATE AMINOTRANSFERASE 31 U/L (15-37); BILIRUBIN,DIRECT 0.2 mg/dL (0.0-0.2); BILIRUBIN,TOTAL 0.7 mg/dL (0.2-1.0); LIPASE 54 U/L (16-77); TOTAL PROTEIN, SERUM 6.8 g/dL (6.4-8.2)
[2025-01-02] MEDS: IV LACTATED RINGERS SOLUTION 1,000 ML BAG IV ONE (16:50)
[2025-01-02 19:00] VITALS: BP 91/64; TEMP 98.6; O2SAT 97
[2025-01-02] MEDS ORDERED: MAGNESIUM HYDROXIDE 30 ML LIQUID UDC PO PRN (19:45)
[2025-01-02] MEDS ORDERED: TEMAZEPAM 15 MG CAPSULE PO PRN (19:45)
[2025-01-02] MEDS ORDERED: REMEDY ESSENTIAL ZINC PASTE 113 GM TP PRN (19:45)
[2025-01-02] MEDS ORDERED: ONDANSETRON 4 MG/2 ML VIAL IV PRN (19:45)
[2025-01-02] MEDS ORDERED: ACETAMINOPHEN 325 MG TABLET PO PRN (19:45)
[2025-01-02] MEDS: IV LACTATED RINGERS SOLUTION 1,000 ML IV SCH (20:41)
[2025-01-02] MEDS: ENOXAPARIN SODIUM 40 MG/0.4 ML DISP.SYRIN SQ SCH (20:42)
[2025-01-02] MEDS: ATORVASTATIN 20 MG TABLET PO SCH (20:43)
[2025-01-03 05:46] LABS: BASOPHILS % (AUTO) 0.5 % (0.0-2.0); DIFFERENTIAL COMMENT 0; EOSINOPHILS # (AUTO) 0.1 K/uL (0.0-0.7); EOSINOPHILS % (AUTO) 0.9 % (0.0-7.0); HEMATOCRIT 38.1 % (31.2-41.9); HEMOGLOBIN 12.3 g/dL (10.9-14.3); LYMPHOCYTES # (AUTO) 1.6 K/uL (0.8-4.8); LYMPHOCYTES % (AUTO) 21.8 % (20.5-51.5); MEAN CORPUSCULAR HEMOGLOBIN 31.1 uug (24.7-32.8); MEAN CORPUSCULAR HGB CONC 32 g/dL (32.3-35.6); MEAN CORPUSCULAR VOLUME 96.1 fL (75.5-95.3); MONOCYTES # (AUTO) 0.6 K/uL (0.1-1.30); MONOCYTES % (AUTO) 7.6 % (0.0-11.0); NEUTROPHILS # (AUTO) 5.1 K/uL (1.8-8.9); NEUTROPHILS % (AUTO) 69.2 % (38.5-71.5); PLATELET COUNT (AUTO) 145 K/uL (179-408); RED BLOOD CELL COUNT(AUTO) 3.96 MIL/uL (3.63-4.92); RED CELL DISTRIBUTION WIDTH 15.1 % (12.3-17.7); WHITE BLOOD COUNT (AUTO) 7.3 K/uL (3.8-11.8)
[2025-01-03 06:00] VITALS: BP 134/76; TEMP 98.2; O2SAT 100
[2025-01-03 06:00] LABS: CALCIUM 8.6 mg/dL (8.5-10.1); CARBON DIOXIDE 24 mmol/L (21-32); CHLORIDE 103 mmol/L (98-107); CREATININE 1.4 mg/dL (0.6-1.3); GLUCOSE 86 mg/dL (74-106); MAGNESIUM 2.2 mg/dL (1.8-2.4); PHOSPHOROUS 2.7 mg/dL (2.5-4.9); POTASSIUM 4.4 mmol/L (3.5-5.1); SODIUM SERUM 135 mmol/L (136-145); UREA NITROGEN, BLOOD 39 mg/dL (7-18)
[2025-01-03] MEDS: PANTOPRAZOLE SODIUM 40 MG TABLET.DR PO SCH (06:25)
[2025-01-03] MEDS ORDERED: ONDA4TAB11 SL (08:05)
[2025-01-03 08:20] VITALS: BP 134/76
[2025-01-03] MEDS: AMLODIPINE 10 MG TABLET PO SCH (08:20)
== END 2025-01-03 11:50 | disposition home or self-care (01) | DRG 684 ==
LOC: ER 14:39 → MEDSURG3 18:29
PROVIDERS: ADMIT Nurse Practitioner Acute Care; ATTEND Nurse Practitioner Acute Care
DX: N17.9 Acute kidney failure, unspecified (principal); E86.0 Dehydration; R11.15 Cyclical vomiting syndrome unrelated to migraine; D69.6 Thrombocytopenia, unspecified; E78.5 Hyperlipidemia, unspecified; Z90.49 Acquired absence of other specified parts of digestive tract; Z96.642 Presence of left artificial hip joint; Z87.891 Personal history of nicotine dependence; Z79.891 Long term (current) use of opiate analgesic; Z98.890 Other specified postprocedural states; Z79.899 Other long term (current) drug therapy; I10 Essential (primary) hypertension
CPT/HCPCS: 36415; 83690; 83735; 84100; 85025; A4606; A4663; G0378; J1650; J2765; J7040; J7120